=== PATIENT | female | born 1930 | race Caucasian/White ===

== ENCOUNTER 2016-07-04 12:49 | Observation (INO) | payer MEDICARE ==
[~2016-07-04] VITALS: Ht 157.5 cm; Wt 64.2 kg
[~2016-07-04 12:49] MED LIST: ASPI-110 PO; CALCTAB32 PO; DIGO0.12 PO; DONE10TA7 PO; DORZ2SOL EACH EYE; FERR325T PO; FLEC1TAB8 PO; LATA.005%O EACH EYE; METO50TA PO; MIRT45TA PO; MULT-135 PO; OMEGCAP29 PO; VITA10002 PO; WARF-21 PO
[2016-07-04 13:03] VITALS: BP 111/56; PULSE 66; RESP 18; TEMP 98.8; O2SAT 100
--- NOTE | 2016-07-04 15:17 | PD ---
HPI Chief Complaint: Respiratory Symptoms Time Seen by Provider: 15:17 Travel History International Travel<30 days: No Contact w/Intl Traveler<30days: No Traveled to known affect area: No History of Present Illness HPI 85-year-old female with history of dementia who lives in an assisted living facility is here with her daughter because he was saying that she was having some breathing difficulty today. Patient has been coughing. She has not been much verbal here although she is awake. Her daughter is giving all the history. Her vital signs in triage were within acceptable limits. No history of fever or chills. She has been complaining of mid back pain since she has been in. This has been going on since today. Patient has a pacemaker and history of atrial fibrillation. [facility] Past Medical History Narrative Medical List of her past medical, surgical, social and family history was reviewed from the nursing note. Anemia: Yes Atrial Fibrillation: Yes Heart Rhythm Problems: Yes (A-FIB) Cancer: No Cardiovascular Problems: Yes (PACER) High Cholesterol: No Chest Pain: No Congestive Heart Failure: No Dementia: Yes Diabetes: No Endocrine: No Genitourinary: No Hypertension: Yes Immune Disorder: No Musculoskeletal: No Neurologic: No Psychiatric: No Reproductive: No Respiratory: No Thyroid Disease: No ?: Not Past Surgical History Pacemaker: Yes Other Surgery: Yes (Appendix,hysterectomy) Social History Alcohol Use: No Tobacco Use: No Substance Use: No Allergies-Medications (Allergen,Severity, Reaction): Coded Allergies: Nitrofurantoin (Verified Allergy, Severe, 05/03/16) Penicillin (Verified Allergy, Mild, Hives, 05/03/16) Sulfa (Verified Allergy, Unknown, 05/03/16) Comments List of her allergies reviewed from the nursing note. Reported Meds & Prescriptions Reported Meds & Active Scripts Active Mirtazapine 45 Mg Tab 45 Mg PO HS Digoxin 0.125 Mg Tab 0.125 Mg PO DAILY Ferrous Sulfate 325 Mg Tab 325 Mg PO BID Reported Calcium Citrate-Vitamin D 315-250 Mg-Unit Tab 2 Tab PO BID Warfarin 2.5 Mg Tab 2.5 Mg PO DIRECTED Vitamin B-12 (Cyanocobalamin) 1,000 Mcg Tab 1,000 Mcg PO DAILY [facility] ([place] 3 Fatty Auedw-Bwupyy-Cynfszqtvj) 250-2.5-0.5 Mg Cap 1 Cap PO DAILY Dorzolamide Opth Drops (Dorzolamide HCl) 2% Soln 1 Drop EACH EYE BID Multi Vitamin (Multiple Vitamin) 1 Tab Tab 1 Tab PO DAILY Aspirin 81 (Aspirin) 81 Mg Tabdr 81 Mg PO DAILY Xalatan Opth Drops (Latanoprost) 0.005% Drops 1 Drop EACH EYE HS Metoprolol Tartrate 50 Mg Tab 50 Mg PO DAILY Donepezil 10 Mg Tab 10 Mg PO HS Flecainide (Flecainide Acetate) 50 Mg Tab 50 Mg PO BID Warfarin 7.5 Mg Tab 7.5 Mg PO DIRECTED EVERY DAY EXCEPT TUES Narrative Medication List of her home medications reviewed from the nursing note. Review of Systems Except as stated in HPI: all other systems reviewed are Neg Physical Exam Narrative GENERAL: Awake, alert, elderly, anxious SKIN: Warm and dry. HEAD: Atraumatic. Normocephalic. EYES: Pupils equal and round. No scleral icterus. No injection or drainage. ENT: No nasal bleeding or discharge. Mucous membranes pink and moist. NECK: Trachea midline. No JVD. CARDIOVASCULAR: Regular rate and rhythm. No murmur appreciated. RESPIRATORY: No accessory muscle use. Clear to auscultation. Breath sounds equal bilaterally. GASTROINTESTINAL: Abdomen soft, non-tender, nondistended. Hepatic and splenic margins not palpable. MUSCULOSKELETAL: No obvious deformities. No clubbing. No cyanosis. No edema. NEUROLOGICAL: Awake and alert. No obvious cranial nerve deficits. Motor grossly within normal limits. Normal speech. PSYCHIATRIC: Appropriate mood and affect; insight and judgment normal. Data Data Last Documented VS Vital Signs Date Time Temp Pulse Resp B/P Pulse Ox O2 Delivery O2 Flow Rate FiO2 07/04/16 15:40 98 Room Air 07/04/16 15:40 98.5 59 32 148/76 Orders Complete Blood Count With Diff (07/04/16 15:21) Basic Metabolic Panel (Bmp) (07/04/16 15:21) B-Type Natriuretic Peptide (07/04/16 15:21) Prothrombin Time / Inr (Pt) (07/04/16 15:21) Troponin I (07/04/16 15:21) Blood Culture (07/04/16 15:21) Iv Access Insert/Monitor (07/04/16 15:21) Electrocardiogram (07/04/16 15:21) Ecg Monitoring (07/04/16 15:21) Oximetry (07/04/16 15:21) Oxygen Administration (07/04/16 15:21) Chest, Single Ap (07/04/16 15:21) Sodium Chloride 0.9% Flush (Ns Flush) (07/04/16 15:30) Digoxin (07/04/16 15:21) Admit Order (Ed Use Only) (07/04/16 17:00) Labs Laboratory Tests Test 07/04/16 15:45 White Blood Count 8.9 TH/MM3 Red Blood Count 2.99 MIL/MM3 Hemoglobin 8.4 GM/DL Hematocrit 25.9 % Mean Corpuscular Volume 86.7 FL Mean Corpuscular Hemoglobin 28.2 PG Mean Corpuscular Hemoglobin 32.5 % Concent Red Cell Distribution Width 14.4 % Platelet Count 257 TH/MM3 Mean Platelet Volume 9.8 FL Neutrophils (%) (Auto) 77.2 % Lymphocytes (%) (Auto) 9.5 % Monocytes (%) (Auto) 8.2 % Eosinophils (%) (Auto) 1.6 % Basophils (%) (Auto) 3.5 % Neutrophils # (Auto) 7.0 TH/MM3 Lymphocytes # (Auto) 0.8 TH/MM3 Monocytes # (Auto) 0.7 TH/MM3 Eosinophils # (Auto) 0.1 TH/MM3 Basophils # (Auto) 0.3 TH/MM3 CBC Comment DIFF FINAL Differential Comment Prothrombin Time 20.9 SEC Prothromb Time International 1.8 RATIO Ratio Sodium Level 141 MEQ/L Potassium Level 4.6 MEQ/L Chloride Level 106 MEQ/L Carbon Dioxide Level 25.9 MEQ/L Anion Gap 9 MEQ/L Blood Urea Nitrogen 17 MG/DL Creatinine 0.90 MG/DL Estimat Glomerular Filtration 60 ML/MIN Rate Random Glucose 108 MG/DL Calcium Level 9.1 MG/DL Troponin I LESS THAN 0.02 NG/ML B-Type Natriuretic Peptide 250 PG/ML Digoxin Level 0.8 NG/ML MDM Medical Decision Making Medical Screen Exam Complete: Yes Emergency Medical Condition: Yes Medical Record Reviewed: Yes Interpretation(s) Twelve-lead EKG was reviewed by me. Normal sinus rhythm, atrial paced, normal axis, nonspecific ST-T wave changes. Heart rate of 59 bpm. Differential Diagnosis Pneumonia, CHF Narrative Course 3:48 PM awaiting for the blood test results to come back. Patient will be signed over to the oncoming ER physician. Procedures EKG Prior to Arrival: Linda Jara MD Jul 04, 2016 15:17
[2016-07-04] MEDS ORDERED: SODIUM CHLORIDE 0.9% FLUSH 5 ML FLUSH IVF PRN (15:30)
[2016-07-04 15:40] VITALS: BP 148/76; PULSE 59; RESP 32; TEMP 98.5; O2SAT 98
[2016-07-04 16:03] LABS: BASOPHIL # 0.3 TH/MM3 (0-0.2); BASOPHIL % 3.5 % (0.0-2.0); EOSINOPHIL # 0.1 TH/MM3 (0-0.4); EOSINOPHIL % 1.6 % (0.0-4.0); HEMATOCRIT 25.9 % (35.0-46.0); HEMO FLAGS DIFF FINAL; LYMPH % 9.5 % (9.0-44.0); LYMPHOCYTE # 0.8 TH/MM3 (1.0-4.8); MEAN CELL VOLUME 86.7 FL (80.0-100.0); MEAN CORPUSCULAR HEMOGLOBIN 28.2 PG (27.0-34.0); MEAN CORPUSCULAR HGB CONC 32.5 % (32.0-36.0); MONO % 8.2 % (0.0-8.0); NEUT % 77.2 % (16.0-70.0); PLATELET COUNT 257 TH/MM3 (150-450); RED BLOOD COUNT 2.99 MIL/MM3 (4.00-5.30); RED CELL DISTRIBUTION WIDTH 14.4 % (11.6-17.2); WHITE BLOOD COUNT 8.9 TH/MM3 (4.0-11.0)
--- NOTE | 2016-07-04 16:15 | RADHPO ---
EXAM DATE/TIME: 07/04/2016 16:10 [facility] COMPARISON: CHEST SINGLE AP, June 16, 2013, 7:42. INDICATIONS : Short of breath. MEDICAL HISTORY : None. SURGICAL HISTORY : Pacemaker. ENCOUNTER: Initial ACUITY: 1 day PAIN SCORE: 0/10 LOCATION: Bilateral chest FINDINGS: A single view of the chest demonstrates the lungs to be symmetrically aerated without evidence of mas s, infiltrate or effusion. Cardiomegaly. Left-sided pacemaker unchanged.. Osseous structures are int act. CONCLUSION: No acute disease. Joel Hurtado MD on July 04, 2016 at 16:14 Board Certified Radiologist. This report was verified electronically.
[2016-07-04 16:17] LABS: CHLORIDE 106 MEQ/L (98-107); POTASSIUM 4.6 MEQ/L (3.5-5.1); SODIUM (NA) 141 MEQ/L (136-145)
[2016-07-04] MEDS ORDERED: WARF-18 PO (16:18)
[2016-07-04] MEDS ORDERED: CALCTAB PO (16:18)
[2016-07-04 16:19] LABS: INTERNATIONAL NORMALIZED RATIO 1.8 RATIO; PROTHROMBIN TIME - PATIENT 20.9 SEC (9.8-11.6)
[2016-07-04 16:21] LABS: ANION GAP 9 MEQ/L (5-15); BICARBONATE 25.9 MEQ/L (21.0-32.0); BLOOD UREA NITROGEN 17 MG/DL (7-18)
[2016-07-04 16:24] LABS: GLOMERULAR FILTRATION RATE 60 ML/MIN (>89)
[2016-07-04 16:39] LABS: DIGOXIN 0.8 NG/ML (0.8-2.0)
--- NOTE | 2016-07-04 17:00 | PD ---
Data Data Last Documented VS Vital Signs Date Time Temp Pulse Resp B/P Pulse Ox O2 Delivery O2 Flow Rate FiO2 07/04/16 15:40 98 Room Air 07/04/16 15:40 98.5 59 32 148/76 Orders Complete Blood Count With Diff (07/04/16 15:21) Basic Metabolic Panel (Bmp) (07/04/16 15:21) B-Type Natriuretic Peptide (07/04/16 15:21) Prothrombin Time / Inr (Pt) (07/04/16:) Troponin I (07/04/16:) Blood Culture (07/04/16:) Iv Access Insert/Monitor (07/04/16:) Electrocardiogram (07/04/16:) Ecg Monitoring (07/04/16:) Oximetry (07/04/16:) Oxygen Administration (07/04/16:) Chest, Single Ap (07/04/16 15:) Sodium Chloride 0.9% Flush (Ns Flush) (07/04/16 15:30) Digoxin (07/04/16 15:) Labs Laboratory Tests Test 07/04/16 15:45 White Blood Count 8.9 TH/MM3 Red Blood Count 2.99 MIL/MM3 Hemoglobin 8.4 GM/DL Hematocrit 25.9 % Mean Corpuscular Volume 86.7 FL Mean Corpuscular Hemoglobin 28.2 PG Mean Corpuscular Hemoglobin 32.5 % Concent Red Cell Distribution Width 14.4 % Platelet Count 257 TH/MM3 Mean Platelet Volume 9.8 FL Neutrophils (%) (Auto) 77.2 % Lymphocytes (%) (Auto) 9.5 % Monocytes (%) (Auto) 8.2 % Eosinophils (%) (Auto) 1.6 % Basophils (%) (Auto) 3.5 % Neutrophils # (Auto) 7.0 TH/MM3 Lymphocytes # (Auto) 0.8 TH/MM3 Monocytes # (Auto) 0.7 TH/MM3 Eosinophils # (Auto) 0.1 TH/MM3 Basophils # (Auto) 0.3 TH/MM3 CBC Comment DIFF FINAL Differential Comment Prothrombin Time 20.9 SEC Prothromb Time International 1.8 RATIO Ratio Sodium Level 141 MEQ/L Potassium Level 4.6 MEQ/L Chloride Level 106 MEQ/L Carbon Dioxide Level 25.9 MEQ/L Anion Gap 9 MEQ/L Blood Urea Nitrogen 17 MG/DL Creatinine 0.90 MG/DL Estimat Glomerular Filtration 60 ML/MIN Rate Random Glucose 108 MG/DL Calcium Level 9.1 MG/DL Troponin I LESS THAN 0.02 NG/ML B-Type Natriuretic Peptide 250 PG/ML Digoxin Level 0.8 NG/ML MDM Supervised Visit with SANTOSH: No Narrative Course The patient was initially evaluated by the previous provider and signed out to me at the beginning of my shift pending labs, chest x-ray, and disposition. See her note for further details. Briefly this is an 85-year-old female with history of A. fib on Coumadin who is brought in by her daughter from her alf for evaluation of cough and shortness of breath. On physical exam the patient is coughing. Her lung sounds are clear and equal bilaterally. She is resting comfortably. Vital signs show heart rate 59, blood pressure 148/76, pulse ox 98% on room air , oral temp of 98.5F. CBC shows WBC 8.9, hemoglobin 8.4, hematocrit 25.9, platelets 257, neutrophils 77%. CMP is unremarkable. Cardiac enzymes are negative. BNP is 250. Digoxin level is 0.8. INR is 1.8. Chest x-ray: No acute disease. Chart review shows that the patient was last here in 2013 and had a hemoglobin of 10.1. Today it is 8.4. Her stool is heme positive and brown. Given anemia with INR 1.8 and shortness of breath, the patient will be admitted for overnight observation for serial H&H. Case discussed with hospitalist Dr. Pérez who will admit the patient to his service. Diagnosis Primary Impression: Anemia Qualified Code: D64.9 - Anemia, unspecified type Additional Impressions: Heme positive stool Shortness of breath Admitting Information Admitting Physician Requests: Ricky Cotton MD Jul 04, 2016 17:00
[2016-07-04] MEDS ORDERED: RESP: ALBUTEROL 2.5 MG/IPRATROPIUM 0.5 MG NEB (PRN) NEB (17:45)
[2016-07-04] MEDS ORDERED: SODIUM CHLORIDE 0.9% FLUSH 5 ML FLUSH FLUSH PRN (17:45)
[2016-07-04] MEDS ORDERED: ONDANSETRON HCL 4 MG/2 ML VIAL IVP PRN (17:45)
[2016-07-04] MEDS ORDERED: NALOXONE HCL 0.4 MG/ML AMP IV PRN (17:45)
[2016-07-04] MEDS ORDERED: ACETAMINOPHEN 325 MG TAB PO PRN ×2 (17:45)
[2016-07-04] MEDS ORDERED: PILL SPLITTER OTHER PRN (17:45)
[2016-07-04 19:47] VITALS: O2SAT 98
[2016-07-04 20:36] VITALS: BP 153/63; PULSE 119; RESP 18; O2SAT 96
[2016-07-04] MEDS ORDERED: LATANOPROST 0.005% OPHT SOLN 2.5 ML BTL EACH EYE SCH (21:00)
[2016-07-04] MEDS ORDERED: DONEPEZIL HCL 5 MG TAB PO SCH (21:00)
[2016-07-04] MEDS ORDERED: FLECAINIDE ACETATE 100 MG TAB PO SCH (21:00)
[2016-07-04] MEDS ORDERED: DORZOLAMIDE 2% OPTH SOLN 200 DROP/10 ML BTLO EACH EYE SCH (21:00)
[2016-07-04] MEDS ORDERED: MIRTAZAPINE 15 MG TAB PO SCH (21:00)
[2016-07-04 21:56] VITALS: BP 142/69; PULSE 60; RESP 18; TEMP 99.4; O2SAT 99
[2016-07-05] VITALS: BP 154/72; PULSE 60; RESP 18; TEMP 98.9; O2SAT 100
[2016-07-05 00:30] VITALS: PULSE 67
[2016-07-05] MEDS: FERROUS SULFATE 325 MG (65 MG ELEMENTAL IRON) TAB PO SCH ×2 (00:42→08:16)
[2016-07-05] MEDS: SODIUM CHLORIDE 0.9% FLUSH 5 ML FLUSH FLUSH SCH ×2 (02:45→08:17)
[2016-07-05 06:35] LABS: AUTOMATED NEUTROPHIL # 5.7 TH/MM3 (1.8-7.7); BASOPHIL % 0.2 % (0.0-2.0); EOSINOPHIL # 0.2 TH/MM3 (0-0.4); EOSINOPHIL % 2.4 % (0.0-4.0); HEMATOCRIT 24.2 % (35.0-46.0); LYMPH % 11.4 % (9.0-44.0); LYMPHOCYTE # 0.9 TH/MM3 (1.0-4.8); MEAN CELL VOLUME 86.4 FL (80.0-100.0); MEAN CORPUSCULAR HEMOGLOBIN 28.7 PG (27.0-34.0); MEAN CORPUSCULAR HGB CONC 33.2 % (32.0-36.0); MONO % 10.7 % (0.0-8.0); NEUT % 75.3 % (16.0-70.0); PLATELET COUNT 187 TH/MM3 (150-450); RED CELL DISTRIBUTION WIDTH 13.8 % (11.6-17.2); WHITE BLOOD COUNT 7.6 TH/MM3 (4.0-11.0)
[2016-07-05 06:47] LABS: HEMO FLAGS DIFF FINAL
[2016-07-05] MEDS ORDERED: DIGOXIN 0.125 MG TAB PO SCH (09:00)
[2016-07-05] MEDS ORDERED: MULTIVITAMIN TAB PO SCH (09:00)
[2016-07-05] MEDS ORDERED: METOPROLOL TARTRATE 50 MG TAB PO SCH (09:00)
[2016-07-05 09:22] VITALS: BP 154/80; PULSE 69; RESP 14; TEMP 98.5; O2SAT 98
--- NOTE | 2016-07-05 10:26 | HHI.HP ---
[facility] Service [facility] Primary Care Physician Vladimir Hawk MD Admission Diagnosis anemia, heme positive stool, dyspnea Diagnoses: (1) Cough Diagnosis: Principal (2) Heme positive stool Diagnosis: Principal (3) Anemia Diagnosis: Secondary (4) Atrial fibrillation, rapid Diagnosis: Secondary (5) Dementia Diagnosis: Secondary Chief Complaint: Cough Travel History International Travel<30 Days: No Contact w/Intl Traveler <30 Da: No Traveled to Known Affected Are: No History of Present Illness 85-year-old quite pleasant demented female who presented from local [facility] and the presence of her daughter to the emergency department for generalized symptoms of not feeling well, cough, difficulty breathing the night before. Upon evaluating the patient this morning the patient does appear to have significant dementia, she does know her name and date of , however unable to give any other orientation questions. She believes that she is in [place]. Information was taken from medical records, discussion with daughter, discussion with primary medical doctor's office. Apparently the patient presented with cough and shortness of breath which has resolved at this time. Patient had blood work done emergency department found to have a hemoglobin of 8.4 and stool was heme positive. Because of those reasons ER physician recommended patient be observed overnight. Upon further review of medical records and discussion with primary medical doctor's office. Patient's hemoglobin is typically 7.39.1. Last hemoglobin was 8.6 on 11/22/15. Follow-up laboratory studies this morning hemoglobin was 8.1 which has remained stable. Patient is also on ferrous sulfate for iron replacement which can cause false positive with testing. Patient appears clinically stable and asymptomatic. Discussed with primary medical doctor office and daughter, results and treatment plan. Patient will follow-up with primary medical doctor's office by the end of the week. Review of Systems ROS Limitations: Poor Historian Past Family Social History Past Medical History Unable to obtain information from patient, information taken from medical records Hypertension Chronic atrial fibrillation Impaired fasting glucose Dementia History of pancreatitis Chronic anemia Cognitive impairment Past Surgical History Unable to obtain information with the patient, information taken from medical records. Permanent pacemaker Appendectomy Hysterectomy Reported Medications Reported Meds & Active Scripts Active Mirtazapine 45 Mg Tab 45 Mg PO HS Digoxin 0.125 Mg Tab 0.125 Mg PO DAILY Ferrous Sulfate 325 Mg Tab 325 Mg PO BID Reported Calcium Citrate-Vitamin D 315-250 Mg-Unit Tab 2 Tab PO BID Warfarin 2.5 Mg Tab 2.5 Mg PO DIRECTED Vitamin B-12 (Cyanocobalamin) 1,000 Mcg Tab 1,000 Mcg PO DAILY [facility] ([place] 3 Fatty Jnlnm-Yoqjlb-Hmpeaxsiny) 250-2.5-0.5 Mg Cap 1 Cap PO DAILY Dorzolamide Opth Drops (Dorzolamide HCl) 2% Soln 1 Drop EACH EYE BID Multi Vitamin (Multiple Vitamin) 1 Tab Tab 1 Tab PO DAILY Aspirin 81 (Aspirin) 81 Mg Tabdr 81 Mg PO DAILY Xalatan Opth Drops (Latanoprost) 0.005% Drops 1 Drop EACH EYE HS Metoprolol Tartrate 50 Mg Tab 50 Mg PO DAILY Donepezil 10 Mg Tab 10 Mg PO HS Flecainide (Flecainide Acetate) 50 Mg Tab 50 Mg PO BID Warfarin 7.5 Mg Tab 7.5 Mg PO DIRECTED EVERY DAY EXCEPT TUES Allergies: Coded Allergies: Nitrofurantoin (Verified Allergy, Severe, 05/03/16) Penicillin (Verified Allergy, Mild, Hives, 05/03/16) Sulfa (Verified Allergy, Unknown, 05/03/16) Family History Unable to obtain information from the patient, information taken from medical records Records reviewed and significant for father with lung cancer, mother with memory loss Social History Unable to obtain information from the patient, information taken from medical records Records indicate that patient does not use any tobacco, alcohol or illicit drugs at this time. Physical Exam Vital Signs Vital Signs Date Time Temp Pulse Resp B/P Pulse Ox O2 Delivery O2 Flow Rate FiO2 07/05/16 09:22 98.5 69 14 154/80 98 07/05/16 00:30 67 07/05/16 00:00 98.9 60 18 154/72 100 07/04/16 21:56 99.4 60 18 142/69 99 07/04/16 20:36 119 18 153/63 96 Room Air 07/04/16 19:47 98 07/04/16 17:43 16 07/04/16 15:40 98 Room Air 07/04/16 15:40 98 Room Air 07/04/16 15:40 98.5 59 32 148/76 98 Room Air 07/04/16 13:03 98.8 66 18 111/56 100 Room Air Physical Exam GENERAL: Well-developed, well-nourished, in no acute distress. alert and orientated to person only HEENT: Head is normocephalic without any lesions or masses noted. Facial features are symmetric. Eyes: Pupils equal round reactive to light. Extraocular muscles are intact. Conjunctivae were clear. Oropharyngeal: Pharynx without any erythema edema. Tongue is midline without deviation. Buccal mucosa is moist without any masses or lesions NECK: Supple without any masses. Trachea midline no deviation. No JVD, no bruits are appreciated CARDIAC: Irregular rhythm, irregular rate. S1/S2 are heard. 2/6 ejection murmur , no gallops or rubs. LUNGS: Clear to auscultation bilaterally. No wheeze, rhonchi or rales. No use of accessory muscles on inspiration or expiration. ABDOMEN: Soft, nontender. Nondistended. Bowel sounds heard in all 4 quadrants. No organomegaly or masses. Negative rebound, negative guarding EXTREMITIES: No edema, pulses are equal bilaterally. No cyanosis or clubbing NEUROLOGY: Mood and affect appear appropriate. Cranial nerves II through XII grossly intact. Muscle strength 5/5 in upper and lower extremities bilaterally. Deep tendon reflexes are 2+ in upper and lower extremities bilaterally. Laboratory Laboratory Tests Test 07/04/16 07/05/16 15:45 05:39 White Blood Count 8.9 7.6 Red Blood Count 2.99 2.80 Hemoglobin 8.4 8.1 Hematocrit 25.9 24.2 Mean Corpuscular Volume 86.7 86.4 Mean Corpuscular Hemoglobin 28.2 28.7 Mean Corpuscular Hemoglobin 32.5 33.2 Concent Red Cell Distribution Width 14.4 13.8 Platelet Count 257 187 Mean Platelet Volume 9.8 9.4 Neutrophils (%) (Auto) 77.2 75.3 Lymphocytes (%) (Auto) 9.5 11.4 Monocytes (%) (Auto) 8.2 10.7 Eosinophils (%) (Auto) 1.6 2.4 Basophils (%) (Auto) 3.5 0.2 Neutrophils # (Auto) 7.0 5.7 Lymphocytes # (Auto) 0.8 0.9 Monocytes # (Auto) 0.7 0.8 Eosinophils # (Auto) 0.1 0.2 Basophils # (Auto) 0.3 0.0 CBC Comment DIFF FINAL DIFF FINAL Differential Comment Prothrombin Time 20.9 Prothromb Time International 1.8 Ratio Sodium Level 141 Potassium Level 4.6 Chloride Level 106 Carbon Dioxide Level 25.9 Anion Gap 9 Blood Urea Nitrogen 17 Creatinine 0.90 Estimat Glomerular Filtration 60 Rate Random Glucose 108 Calcium Level 9.1 Troponin I LESS THAN 0.02 B-Type Natriuretic Peptide 250 Digoxin Level 0.8 Date/Time Procedure Status Source Growth 07/04/16 15:42 Aerobic Blood Culture Received Blood Peripheral Pending 07/04/16 15:42 Anaerobic Blood Culture Received Blood Peripheral Pending Result Diagram: 07/05/16 0539 07/04/16 1545 Imaging Last Impressions Chest X-Ray 07/04/16 1521 Signed Impressions: Service Date/Time: Monday, July 04, 2016 16:10 - CONCLUSION: No acute disease. Joel Hurtado MD Assessment and Plan Assessment and Plan Heme positive stool in a patient with chronic anemia presenting with cough/ shortness of breath: Did review medical records and called patient's primary medical doctor's office. Patient does have laboratory studies performed in which was the most recent indicating patient's hemoglobin 8.6 at that time. Patient had labs performed in emergency department hemoglobin is 8.4. Hemoccult was performed which was positive, however, patient is also on iron supplementation which could cause a false positive result. At the present time hemoglobin is stable in a patient with chronic anemia. No obvious signs of active bleeding. I discussed the patient's medical condition with her primary medical doctor's office who indicated that they'll be happy to see the patient within the next 3 days for follow-up. Chronic atrial fibrillation with permanent pacemaker, hypertension: Home medications will be continued, continue anticoagulation. Dementia: Home medications continued DVT prevention: Patient is on Coumadin Written by Charli Montenegro PA-C, acting as scribe for Dr. Pérez on 07/05/16 at 1010. The documentation accurately reflects the work and decisions performed face-to- face by Dr. Pérez on 07/05/16 at 1010. Discharge disposition Discharge back to [facility] in stable condition Activity: Ad chandan. Diet: Healthy heart diet Medications per medication reconciliation Follow-up primary medical doctor within the next 3 days Problem Qualifiers (1) Anemia: Qualified Code: D64.9 - Anemia, unspecified type (2) Dementia: Qualified Code: F03.90 - Dementia without behavioral disturbance, unspecified dementia type Charli Montenegro Jul 05, 2016 10:26
--- NOTE | 2016-07-05 10:28 | HHI.DCPOC ---
Discharge Care Plan Diagnosis: (1) Heme positive stool Goals to Promote Your Health * To prevent worsening of your condition and complications * To maintain your health at the optimal level Directions to Meet Your Goals Take your medications as prescribed Follow your dietary instruction Follow activity as directed Keep your appointments as scheduled Take your immunizations and boosters as scheduled If your symptoms worsen call your PCP, if no PCP go to Urgent Care Center or Emergency Room Smoking is Dangerous to Your Health. Avoid second hand smoke Call the 24-hour hour crisis hotline for domestic abuse at Charli Montenegro Jul 05, 2016 10:28
--- NOTE | 2016-07-05 20:17 | EKG ---
Date Performed: 07/04/2016 Time Performed: 15:36:40 PTAGE: 85 years EKG: Atrial pacing Poor R wave progression - probable normal variant Extensive T wave changes ar e nonspecific Abnormal ECG PREVIOUS TRACING : 06/16/2013 07.47 Compared to prior tracing no significant change DOCTOR: Felicitas David Interpretating Date/Time 07/05/2016 20:14:48
[2016-07-14] MEDS ORDERED: FERR325T PO (11:37)
[2016-07-14] MEDS ORDERED: WARF-21 PO (12:05)
[2016-07-21] MEDS ORDERED: WARF-22 PO (13:33)
[2016-07-21] MEDS ORDERED: WARF-21 PO (13:33)
[2016-08-28] MEDS ORDERED: FLEC1TAB8 PO (14:28)
[2016-09-15] MEDS ORDERED: WARF-21 PO (10:50)
[2016-09-22] MEDS ORDERED: FERR324T4 PO (11:44)
[2016-09-22] MEDS ORDERED: MULT-65 PO (11:44)
[2016-09-22] MEDS ORDERED: WARF-21 PO (13:10)
[2016-09-25] MEDS ORDERED: LORA-373 PO (09:22)
[2016-09-29] MEDS ORDERED: FLEC1TAB8 PO (13:28)
[2016-10-02] MEDS ORDERED: METO50TA PO (14:31)
== END 2016-07-05 11:06 ==
LOC: PHED 12:49 → PHEDA 17:01 → PH3B 21:56
PROVIDERS: ADMIT Hospitalist; ATTEND Hospitalist
DX: R19.5 Other fecal abnormalities (principal); D64.9 Anemia, unspecified; R05 Cough; F03.90 Unspecified dementia, unspecified severity, without behavioral disturbance, psychotic disturbance, mood disturbance, and anxiety; I10 Essential (primary) hypertension; I48.2 Chronic atrial fibrillation; Z95.0 Presence of cardiac pacemaker; Z79.01 Long term (current) use of anticoagulants; Z79.82 Long term (current) use of aspirin; Z88.0 Allergy status to penicillin; Z88.2 Allergy status to sulfonamides; Z88.8 Allergy status to other drugs, medicaments and biological substances
CPT/HCPCS: 71010; 80048; 80162; 83880; 84484; 85025; 85610; 87040; 93005; 99285; G0378

== ENCOUNTER 2016-11-20 15:40 | Emergency (ER) | payer MEDICARE ==
[~2016-11-20] VITALS: Ht 157.5 cm; Wt 59.9 kg
[~2016-11-20 15:40] MED LIST changes: +CALCTAB PO; -CALCTAB32 PO; +FERR324T4 PO; -FERR325T PO; -FLEC1TAB8 PO; -MIRT45TA PO; -MULT-135 PO; +MULT-65 PO; +TRAZ50TA12 PO
[2016-11-20 15:43] VITALS: BP 135/60; PULSE 76; RESP 16; TEMP 98; O2SAT 100
[2016-11-20 16:05] VITALS: O2SAT 98
[2016-11-20 16:10] LABS: BLOOD, URINE NEG (NEG); GLUCOSE,URINE NEG (NEG); KETONE, URINE NEG (NEG); NITRITE,URINE NEG (NEG)
[2016-11-20] MEDS ORDERED: SODIUM CHLORIDE 0.9% FLUSH 5 ML FLUSH IV FLUSH PRN (16:15)
--- NOTE | 2016-11-20 16:18 | PD ---
HPI Chief Complaint: Altered Mental Status Time Seen by Provider: 15:53 Travel History International Travel<30 days: No Contact w/Intl Traveler<30days: No Traveled to known affect area: No History of Present Illness HPI 86-year-old female arrives with daughter to the ER. She comes from an assisted living facility. For the past 4 days she has been agitated, attacking co- residents and refusing medications. She has been eating less. The daughters report that they encountered her this afternoon at 3 PM, about an hour before ER arrival. The patient at that time began crying. It seems as though the patient was hallucinating, seeing baby that was not there. At the time of ER evaluation the patient has no medical complaints and specifically denies chest pain shortness of breath nausea vomiting and fever. The daughters note that there was a change in medication on , the same day at the initiation of agitation, trazodone started Sunday however they're not sure which medication was stopped night. PFSH Past Medical History Anemia: Yes Atrial Fibrillation: Yes Heart Rhythm Problems: Yes (A-FIB) Cancer: No Cardiovascular Problems: Yes (PACER) High Cholesterol: No Chest Pain: No Congestive Heart Failure: Yes Dementia: Yes Diabetes: No Endocrine: No Genitourinary: No Hypertension: Yes Immune Disorder: No Musculoskeletal: No Neurologic: No Psychiatric: No Reproductive: No Respiratory: No Sickle Cell Disease: No Thyroid Disease: No Tetanus Vaccination: Unknown Influenza Vaccination: Yes ?: Not Past Surgical History AICD: No Appendectomy: Yes Arteriovenous Shunt: No Cardiac Surgery: Yes (PACEMAKER) Cholecystectomy: Yes Hysterectomy: Yes Insulin Pump: No Joint Replacement: No Pacemaker: Yes Other Surgery: Yes (Appendix,hysterectomy) Social History Alcohol Use: No Tobacco Use: No Substance Use: No Allergies-Medications (Allergen,Severity, Reaction): Coded Allergies: Nitrofurantoin (Verified Allergy, Severe, 11/20/16) Penicillin (Verified Allergy, Mild, Hives, 11/20/16) Sulfa (Verified Allergy, Unknown, 11/20/16) Reported Meds & Prescriptions Reported Meds & Active Scripts Active Cefuroxime (Cefuroxime Axetil) 500 Mg Tab 500 Mg PO BID 5 Days Warfarin 7.5 Mg Tab 7.5 Mg PO DAILY Trazodone (Trazodone HCl) 50 Mg Tab 50 Mg PO DIRECTED 25mg 2 hours before bedtime for 2 days, then 50mg 2 hours before bedtime thereafter Donepezil 10 Mg Tab 10 Mg PO HS Metoprolol Tartrate 50 Mg Tab 50 Mg PO DAILY Digoxin 0.125 Mg Tab 0.125 Mg PO DAILY Reported Ferrous Sulfate DR (Ferrous Sulfate) 324 Mg Tabdr 324 Mg PO DAILY Multi-Vitamin Daily (Multiple Vitamin) 1 Tab Tab 1 Tab PO DAILY Calcium Citrate-Vitamin D 315-250 Mg-Unit Tab 2 Tab PO BID Vitamin B-12 (Cyanocobalamin) 1,000 Mcg Tab 1,000 Mcg PO DAILY [facility] ([place] 3 Fatty Tiwbq-Blgtfy-Uotblrbtqd) 250-2.5-0.5 Mg Cap 1 Cap PO DAILY Dorzolamide Opth Drops (Dorzolamide HCl) 2% Soln 1 Drop EACH EYE BID Aspirin 81 (Aspirin) 81 Mg Tabdr 81 Mg PO DAILY Xalatan Opth Drops (Latanoprost) 0.005% Drops 1 Drop EACH EYE HS Review of Systems Except as stated in HPI: all other systems reviewed are Neg Physical Exam Narrative GENERAL: 86 yo F, WNWD, cooperative, answers questions appropriately SKIN: Warm and dry. HEAD: Atraumatic. Normocephalic. EYES: Pupils equal and round. No scleral icterus. No injection or drainage. ENT: No nasal bleeding or discharge. Mucous membranes pink and moist. NECK: Trachea midline. No JVD. CARDIOVASCULAR: Regular rate and rhythm. RESPIRATORY: No accessory muscle use. Clear to auscultation. Breath sounds equal bilaterally. GASTROINTESTINAL: Soft. No focus of tenderness. MUSCULOSKELETAL: Extremities without clubbing, cyanosis, or edema. No obvious deformities. NEUROLOGICAL: Awake and alert. No obvious cranial nerve deficits. Motor grossly within normal limits. Five out of 5 muscle strength in the arms and legs. Normal speech. PSYCHIATRIC: Appropriate mood and affect; insight and judgment normal. Data Data Last Documented VS Vital Signs Date Time Temp Pulse Resp B/P Pulse Ox O2 Delivery O2 Flow Rate FiO2 11/20/16 16:05 98 Room Air 11/20/16 15:43 98.0 76 16 135/60 VS reviewed Orders Electrocardiogram (11/20/16 16:02) Ammonia (11/20/16 16:02) Complete Blood Count With Diff (11/20/16 16:02) Comprehensive Metabolic Panel (11/20/16 16:02) Urinalysis - C+S If Indicated (11/20/16 16:02) Ct Brain W/O Iv Contrast(Rout) (11/20/16 16:02) Ecg Monitoring (11/20/16 16:02) Iv Access Insert/Monitor (11/20/16 16:02) Oximetry (11/20/16 16:02) Sodium Chloride 0.9% Flush (Ns Flush) (11/20/16 16:15) Drug Screen, Random Urine (11/20/16 16:02) Alcohol (Ethanol) (11/20/16 16:02) Urine Culture (11/20/16 16:00) Ceftriaxone Inj (Rocephin Inj) (11/20/16 16:45) Labs Laboratory Tests Test 11/20/16 11/20/16 16:00 16:15 Urine Color YELLOW Urine Turbidity SLIGHT Urine pH 6.0 Urine Specific Meherrin 1.020 Urine Protein NEG mg/dL Urine Glucose (UA) NEG mg/dL Urine Ketones NEG mg/dL Urine Occult Blood NEG Urine Nitrite NEG Urine Bilirubin NEG Urine Leukocyte Esterase SMALL Urine RBC 0-3 /hpf Urine WBC INNUM /hpf Urine WBC Clumps MOD Urine Squamous Epithelial 0-5 /hpf Cells Urine Amorphous Sediment FEW Urine Bacteria MOD /hpf Microscopic Urinalysis Comment CATH-CULTURE IND White Blood Count 3.5 TH/MM3 Red Blood Count 3.74 MIL/MM3 Hemoglobin 10.3 GM/DL Hematocrit 32.0 % Mean Corpuscular Volume 85.5 FL Mean Corpuscular Hemoglobin 27.5 PG Mean Corpuscular Hemoglobin 32.2 % Concent Red Cell Distribution Width 14.0 % Platelet Count 158 TH/MM3 Mean Platelet Volume 9.3 FL Neutrophils (%) (Auto) 66.5 % Lymphocytes (%) (Auto) 18.1 % Monocytes (%) (Auto) 11.2 % Eosinophils (%) (Auto) 3.5 % Basophils (%) (Auto) 0.7 % Neutrophils # (Auto) 2.4 TH/MM3 Lymphocytes # (Auto) 0.6 TH/MM3 Monocytes # (Auto) 0.4 TH/MM3 Eosinophils # (Auto) 0.1 TH/MM3 Basophils # (Auto) 0.0 TH/MM3 CBC Comment DIFF FINAL Differential Comment Sodium Level 141 MEQ/L Potassium Level 4.0 MEQ/L Chloride Level 107 MEQ/L Carbon Dioxide Level 25.8 MEQ/L Anion Gap 8 MEQ/L Blood Urea Nitrogen 13 MG/DL Creatinine 0.99 MG/DL Estimat Glomerular Filtration 53 ML/MIN Rate Random Glucose 123 MG/DL Calcium Level 9.0 MG/DL Total Bilirubin 0.2 MG/DL Aspartate Amino Transf 45 U/L (AST/SGOT) Alanine Aminotransferase 21 U/L (ALT/SGPT) Alkaline Phosphatase 54 U/L Ammonia 16 MCMOL/L Total Protein 7.2 GM/DL Albumin 3.3 GM/DL Ethyl Alcohol Level LESS THAN 3 MG/DL MDM Medical Decision Making Medical Screen Exam Complete: Yes Emergency Medical Condition: Yes Medical Record Reviewed: Yes Differential Diagnosis AMS 2/2 dementia or progression of dementia/infection/polypharmacy/metabolic abnormality/dehydration Narrative Course CBC & BMP Diagram 11/20/16 16:15 LFTs normal Ammonia 16 UA: UTI present EtOH < 3 CT head: No acute disease Pt has a UTI, a very reasonable explanation for her agitation and change in mental status. Rocephin 1g here. Ceftin script. Diagnosis Primary Impression: UTI (urinary tract infection) Qualified Code: N30.00 - Acute cystitis without hematuria Additional Impression: Agitation Referrals: Vladimir Hawk MD 2 days Additional Instructions: You have a choice when it comes to health care, and we are glad that you chose [facility]. Hopefully, we have met your expectations on today's visit. You are welcome to return to [facility] at any time, as we are committed to meeting the health care needs of our community. Med/Other Pt SpecificInfo: Prescription(s) given Scripts Cefuroxime 500 Mg Lem039 Mg PO BID 5 Days Ref 0 Prov:Nestor Jacob MD 11/20/16 Disposition: DISCHARGE HOME Condition: Stable Nestor Jacob MD Nov 20, 2016 16:18
[2016-11-20 16:29] LABS: AUTOMATED NEUTROPHIL # 2.4 TH/MM3 (1.8-7.7); BASOPHIL % 0.7 % (0.0-2.0); EOSINOPHIL # 0.1 TH/MM3 (0-0.4); EOSINOPHIL % 3.5 % (0.0-4.0); HEMO FLAGS DIFF FINAL; LYMPH % 18.1 % (9.0-44.0); LYMPHOCYTE # 0.6 TH/MM3 (1.0-4.8); MEAN CELL VOLUME 85.5 FL (80.0-100.0); MEAN CORPUSCULAR HEMOGLOBIN 27.5 PG (27.0-34.0); MEAN CORPUSCULAR HGB CONC 32.2 % (32.0-36.0); MONO % 11.2 % (0.0-8.0); NEUT % 66.5 % (16.0-70.0); PLATELET COUNT 158 TH/MM3 (150-450); RED BLOOD COUNT 3.74 MIL/MM3 (4.00-5.30); WHITE BLOOD COUNT 3.5 TH/MM3 (4.0-11.0)
[2016-11-20 16:33] LABS: BACTERIA, URINE MOD /hpf; RBC, URINE 0-3 /hpf (0-3); SQUAMOUS EPITHELIAL CELL URINE 0-5 /hpf (0-5); URINE COLOR YELLOW (YELLW/STRAW); WBC, URINE INNUM /hpf (0-5)
[2016-11-20 16:34] LABS: COMMENT (UR) CATH-CULTURE IND; CULTURE IF INDICATED CATH CULTURE IND
[2016-11-20 16:38] LABS: CHLORIDE 107 MEQ/L (98-107); SODIUM (NA) 141 MEQ/L (136-145)
[2016-11-20] MEDS ORDERED: CEFU1TAB20 PO (16:41)
[2016-11-20 16:42] LABS: ANION GAP 8 MEQ/L (5-15); BICARBONATE 25.8 MEQ/L (21.0-32.0); BLOOD UREA NITROGEN 13 MG/DL (7-18)
[2016-11-20 16:45] LABS: ALT (GPT) 21 U/L (10-53); AST (GOT) 45 U/L (15-37); GLOMERULAR FILTRATION RATE 53 ML/MIN (>89)
[2016-11-20] MEDS ORDERED: cefTRIAXone INJ 1,000 MG in SODIUM CHLORIDE 0.9% INJ 100 ML IV ONE (16:45)
[2016-11-20 16:46] LABS: TOTAL BILIRUBIN ADULT 0.2 MG/DL (0.2-1.0)
[2016-11-20 16:48] LABS: ALKALINE PHOSPHATASE 54 U/L (45-117)
--- NOTE | 2016-11-20 16:51 | RADRPT ---
EXAM DATE/TIME: 11/20/2016 16:21 [place] COMPARISON: CT BRAIN W/O CONTRAST, December 06, 2013, 2:55. INDICATIONS : Altered mental status. RADIATION DOSE: 57.64 CTDIvol (mGy) MEDICAL HISTORY : Cardiovascular disease. Congestive heart failure. Hypertension. SURGICAL HISTORY : Pacemaker. ENCOUNTER: Initial ACUITY: 1 day PAIN SCALE: 0/10 LOCATION: cranial TECHNIQUE: Multiple contiguous axial images were obtained of the head. Using automated exposure control and adj ustment of the mA and/or kV according to patient size, radiation dose was kept as low as reasonably a chievable to obtain optimal diagnostic quality images. DICOM format image data is available electro nically for review and comparison. FINDINGS: There is no evidence for intracranial hemorrhage, mass effect, mass lesions, or edema. The visualize d bony structures appear intact. Slight degree of brain atrophy is seen. Slight periventricular whit e matter changes are seen nonspecific mostly consistent with chronic small vessel ischemic changes. There are no signs of acute infarction for technique. CONCLUSION: Slight atrophic and small vessel ischemic changes without any evidence for acute hemorrhage or mass effect. Prudence Bautista MD on November 20, 2016 at 16:48 Board Certified Radiologist. This report was verified electronically.
[2016-11-20 17:37] VITALS: BP 138/70; PULSE 62; RESP 16; RESP 18; O2SAT 99
[2016-11-20 17:41] LABS: AMPHETAMINE, URINE NEG (NEG); BARBITURATES, URINE NEG (NEG); COCAINE, URINE NEG (NEG)
[2016-11-20] MEDS ORDERED: LORazepam 2 MG/ML VIAL IV PUSH ONE (18:00)
[2016-11-20] MEDS ORDERED: LORA-392 PO (18:22)
[2016-11-23] MEDS ORDERED: SERO25TA PO (14:42)
[2016-12-01] MEDS ORDERED: FERR324T4 PO (11:11)
[2016-12-01] MEDS ORDERED: WARF-21 PO (14:54)
== END 2016-11-20 19:00 | disposition home or self-care (01) ==
LOC: PHED 15:40
DX: N30.00 Acute cystitis without hematuria (principal); R45.1 Restlessness and agitation; R44.1 Visual hallucinations; F03.90 Unspecified dementia, unspecified severity, without behavioral disturbance, psychotic disturbance, mood disturbance, and anxiety; I10 Essential (primary) hypertension; Z79.899 Other long term (current) drug therapy; Z95.0 Presence of cardiac pacemaker; Z86.2 Personal history of diseases of the blood and blood-forming organs and certain disorders involving the immune mechanism; Z86.79 Personal history of other diseases of the circulatory system
CPT/HCPCS: 70450; 80053; 80307; 81001; 82140; 85025; 87086; 96365; 96375; 99285; J0696; J2060

== ENCOUNTER 2017-05-24 14:55 | Inpatient (IN) | payer MEDICARE, OTHER ==
[~2017-05-24] VITALS: Ht 160 cm; Wt 55.4 kg
[~2017-05-24 14:55] MED LIST changes: -ASPI-110 PO; +ASPI1TAB57 PO; +LORA-392 PO; +QUET5TAB PO; -TRAZ50TA12 PO; -WARF-21 PO; +WARF-23 PO
[2017-05-24 15:26] VITALS: BP 153/88; PULSE 86; RESP 19; TEMP 98.3; O2SAT 100
--- NOTE | 2017-05-24 16:11 | PD ---
HPI Chief Complaint: Psychiatric Symptoms Time Seen by Provider: 15:19 Travel History International Travel<30 days: No Contact w/Intl Traveler<30days: No Traveled to known affect area: No History of Present Illness HPI This is an 86-year-old female that was brought in from [facility]. She has history of Alzheimer's. The daughter and granddaughter at the bedside and states that this is an ongoing problem with her outbursts. According to law enforcement report the patient, "and now suffers from Alzheimer 's and began stating she would kill herself and was threatening other members in the home and staff." The daughter states other members in the home are scared of her. On physical exam and history of present illness the patient is awake and alert, but disoriented and is telling me that she doesn't want anybody to touch her. She denies being suicidal or homicidal. Daughter states the patient has refused to eat today. Onset of symptoms unknown. Symptoms are moderate in severity. Duration unknown. No known aggravating or relieving factors. Allergies to sulfa, Macrobid, penicillin. Primary care provider is Dr. Farrar. History of Alzheimer's, pacemaker, legally blind, diabetes mellitus. PFSH Past Medical History Medical History: Unable to Obtain Anemia: Yes Atrial Fibrillation: Yes Heart Rhythm Problems: Yes (A-FIB) Cancer: No Cardiovascular Problems: Yes (PACER) High Cholesterol: No Chest Pain: No Congestive Heart Failure: Yes Dementia: Yes Diabetes: No Endocrine: No Genitourinary: No Hypertension: Yes Immune Disorder: No Musculoskeletal: No Neurologic: No Psychiatric: No Reproductive: No Respiratory: No Sickle Cell Disease: No Thyroid Disease: No ?: Not Past Surgical History Surgical History: Unable to Obtain AICD: No Appendectomy: Yes Arteriovenous Shunt: No Cardiac Surgery: Yes (PACEMAKER) Cholecystectomy: Yes Hysterectomy: Yes Insulin Pump: No Joint Replacement: No Pacemaker: Yes Other Surgery: Yes (Appendix,hysterectomy) Social History Alcohol Use: No Tobacco Use: No Substance Use: No Allergies-Medications (Allergen,Severity, Reaction): Coded Allergies: nitrofurantoin (Unverified Allergy, Severe, 03/07/17) penicillin G (Unverified Allergy, Mild, Hives, 03/07/17) Sulfa (Sulfonamide Antibiotics) (Unverified Allergy, Unknown, 03/07/17) Reported Meds & Prescriptions Reported Meds & Active Scripts Active Warfarin 5 Mg Tab 5 Mg PO DIRECTED 7.5 mg (1 1/2 of 5mg tab) Th/5mg [id number] Quetiapine (Quetiapine Fumarate) 50 Mg Tab 50 Mg PO TID Ferrous Sulfate DR (Ferrous Sulfate) 324 Mg Tabdr 324 Mg PO BID Digoxin 0.125 Mg Tab 0.125 Mg PO DAILY Vitamin B-12 (Cyanocobalamin) 1,000 Mcg Tab 1,000 Mcg PO DAILY Ativan (Lorazepam) 0.5 Mg Tab 0.5 Mg PO Q6H PRN Donepezil 10 Mg Tab 10 Mg PO HS Metoprolol Tartrate 50 Mg Tab 50 Mg PO DAILY Reported Multi-Vitamin Daily (Multiple Vitamin) 1 Tab Tab 1 Tab PO DAILY Calcium Citrate-Vitamin D 315-250 Mg-Unit Tab 2 Tab PO BID [facility] ([place] 3 Fatty Atnfv-Phoncz-Amhigbnqfp) 250-2.5-0.5 Mg Cap 1 Cap PO DAILY Dorzolamide Opth Drops (Dorzolamide HCl) 2% Soln 1 Drop EACH EYE BID Aspirin 81 (Aspirin) 81 Mg Tabdr 81 Mg PO DAILY Xalatan Opth Drops (Latanoprost) 0.005% Drops 1 Drop EACH EYE HS Review of Systems ROS Limitations: Altered Mental Status Physical Exam Exam Limitations: Altered Mental Status, Uncooperative, Refused Narrative Patient does not want anybody to touch her. Physical exam was done by visualization. GENERAL: Well-nourished, well-developed elderly, female patient, in no acute distress SKIN: Warm and dry. HEAD: Atraumatic. Normocephalic. EYES: Pupils equal and round. No scleral icterus. No injection or drainage. ENT: Mucosa pink and moist. Airway patent. NECK: Trachea midline. CARDIOVASCULAR: Regular rate. RESPIRATORY: No accessory muscle use. GASTROINTESTINAL: Flat. MUSCULOSKELETAL: No obvious deformities. No clubbing. No cyanosis. No edema. NEUROLOGICAL: Awake and alert. Oriented 3. No obvious cranial nerve deficits. Motor grossly within normal limits. Normal speech. PSYCHIATRIC: Appropriate mood and affect; insight and judgment normal. Data Data Last Documented VS Vital Signs Date Time Temp Pulse Resp B/P (MAP) Pulse Ox O2 Delivery O2 Flow Rate FiO2 05/24/17 15:26 98.3 86 19 153/88 (109) 100 Orders Orders Complete Blood Count With Diff (05/24/17 15:20) Comprehensive Metabolic Panel (05/24/17 15:20) Urinalysis - C+S If Indicated (05/24/17 15:20) Psych Screen (05/24/17 15:20) Drug Screen, Random Urine (05/24/17 15:20) Alcohol (Ethanol) (05/24/17 15:20) Salicylates (Aspirin) (05/24/17 15:20) Tylenol (Acetaminophen) (05/24/17 15:20) Haloperidol Inj (Haldol Inj) (05/24/17 16:30) Lorazepam Inj (Ativan Inj) (05/24/17 16:30) Restraints Violent (05/24/17 16:24) Diphenhydramine Inj (Benadryl Inj) (05/24/17 16:45) Labs Laboratory Tests Test 05/24/17 17:04 05/24/17 17:45 White Blood Count 4.2 TH/MM3 Red Blood Count 3.49 MIL/MM3 Hemoglobin 8.7 GM/DL Hematocrit 27.7 % Mean Corpuscular Volume 79.5 FL Mean Corpuscular Hemoglobin 24.9 PG Mean Corpuscular Hemoglobin Concent 31.4 % Red Cell Distribution Width 20.7 % Platelet Count 215 TH/MM3 Mean Platelet Volume 9.0 FL Neutrophils (%) (Auto) 74.1 % Lymphocytes (%) (Auto) 14.5 % Monocytes (%) (Auto) 9.7 % Eosinophils (%) (Auto) 1.0 % Basophils (%) (Auto) 0.7 % Neutrophils # (Auto) 3.1 TH/MM3 Lymphocytes # (Auto) 0.6 TH/MM3 Monocytes # (Auto) 0.4 TH/MM3 Eosinophils # (Auto) 0.0 TH/MM3 Basophils # (Auto) 0.0 TH/MM3 CBC Comment DIFF FINAL Differential Comment Blood Urea Nitrogen 11 MG/DL Creatinine 0.85 MG/DL Random Glucose 95 MG/DL Total Protein 7.7 GM/DL Albumin 3.1 GM/DL Calcium Level 8.4 MG/DL Alkaline Phosphatase 55 U/L Aspartate Amino Transf (AST/SGOT) 49 U/L Alanine Aminotransferase (ALT/SGPT) 18 U/L Total Bilirubin 0.4 MG/DL Sodium Level 141 MEQ/L Potassium Level 3.9 MEQ/L Chloride Level 108 MEQ/L Carbon Dioxide Level 24.5 MEQ/L Anion Gap 9 MEQ/L Estimat Glomerular Filtration Rate 64 ML/MIN Salicylates Level LESS THAN 1.7 MG/DL Acetaminophen Level LESS THAN 2.0 MCG/ML Ethyl Alcohol Level LESS THAN 3 MG/DL Urine Color LIGHT-YELLOW Urine Turbidity CLEAR Urine pH 6.5 Urine Specific Hanna 1.005 Urine Protein NEG mg/dL Urine Glucose (UA) NEG mg/dL Urine Ketones NEG mg/dL Urine Occult Blood NEG Urine Nitrite NEG Urine Bilirubin NEG Urine Urobilinogen LESS THAN 2.0 MG/DL Urine Leukocyte Esterase MOD Urine RBC LESS THAN 1 /hpf Urine WBC 2 /hpf Urine Squamous Epithelial Cells <1 /hpf Microscopic Urinalysis Comment CULT NOT INDICATED Urine Opiates Screen NEG Urine Barbiturates Screen NEG Urine Amphetamines Screen NEG Urine Benzodiazepines Screen NEG Urine Cocaine Screen NEG Urine Cannabinoids Screen NEG MDM Medical Decision Making Medical Screen Exam Complete: Yes Emergency Medical Condition: Yes Medical Record Reviewed: Yes Differential Diagnosis Alzheimer's, psychosis, medical clearance for psych evaluation Narrative Course Patient presents under a Garvey act. Physical examination and vital signs are essentially unremarkable. Patient has no medical complaints to report. Psych screen has been ordered. If the laboratory results are unremarkable, the patient will be medically cleared for psychiatric evaluation and disposition. 1840: Hgb 8.7; consistent with past levels. Discussed with Dr. Busby and he agrees patient is medically cleared for psych evaluation. Diagnosis Primary Impression: Medical clearance for psychiatric admission Condition: Stable Chantell Lopez May 24, 2017 16:11
[2017-05-24] MEDS ORDERED: HALOPERIDOL LACTATE 5 MG/ML AMP IM ONE ×2 (16:30→23:45)
[2017-05-24] MEDS ORDERED: LORazepam 2 MG/ML VIAL IM ONE ×2 (16:30→23:45)
[2017-05-24] MEDS ORDERED: diphenhydrAMINE HCL 50 MG/ML VIAL IM ONE (16:45)
--- NOTE | 2017-05-24 17:00 | PD ---
Data Data Last Documented VS Vital Signs Date Time Temp Pulse Resp B/P (MAP) Pulse Ox O2 Delivery O2 Flow Rate FiO2 05/24/17 15:26 98.3 86 19 153/88 (109) 100 Orders Orders Complete Blood Count With Diff (05/24/17 15:20) Comprehensive Metabolic Panel (05/24/17 15:20) Urinalysis - C+S If Indicated (05/24/17 15:20) Psych Screen (05/24/17 15:20) Drug Screen, Random Urine (05/24/17 15:20) Alcohol (Ethanol) (05/24/17 15:20) Salicylates (Aspirin) (05/24/17 15:20) Tylenol (Acetaminophen) (05/24/17 15:20) Haloperidol Inj (Haldol Inj) (05/24/17 16:30) Lorazepam Inj (Ativan Inj) (05/24/17 16:30) Restraints Violent (05/24/17 16:24) Diphenhydramine Inj (Benadryl Inj) (05/24/17 16:45) MDM Supervised Visit with SANTOSH: Yes Narrative Course The history, exam, and medical decision-making in the associated midlevel provider note were completed with my assistance. I reviewed and agree with the findings presented. I attest that I had a [id number] encounter with the patient on the same day, and personally performed and documented my assessment and findings in the medical record. *My assessment and Findings: This is an 86-year-old female who presents to the emergency department combative, aggressive, screaming at staff, biting and kicking. She evidently has a history of behavioral problems in the past and a long history of dementia. Patient required chemical sedation as well as physical restraints in order to protect staff. She will be evaluated and seen by psychiatry. Diagnosis Primary Impression: Medical clearance for psychiatric admission Condition: Obdulia De La Vega MD May 24, 2017 17:00
[2017-05-24 17:22] LABS: HEMATOCRIT 27.7 % (35.0-46.0); HEMOGLOBIN 8.7 GM/DL (11.6-15.3); LYMPH % 14.5 % (9.0-44.0); MEAN CELL VOLUME 79.5 FL (80.0-100.0); MEAN CORPUSCULAR HEMOGLOBIN 24.9 PG (27.0-34.0); MEAN CORPUSCULAR HGB CONC 31.4 % (32.0-36.0); MONO % 9.7 % (0.0-8.0); NEUT % 74.1 % (16.0-70.0); PLATELET COUNT 215 TH/MM3 (150-450); RED BLOOD COUNT 3.49 MIL/MM3 (4.00-5.30); RED CELL DISTRIBUTION WIDTH 20.7 % (11.6-17.2); WHITE BLOOD COUNT 4.2 TH/MM3 (4.0-11.0)
[2017-05-24 17:23] LABS: AUTOMATED NEUTROPHIL # 3.1 TH/MM3 (1.8-7.7); BASOPHIL % 0.7 % (0.0-2.0); LYMPHOCYTE # 0.6 TH/MM3 (1.0-4.8); MONOCYTE # 0.4 TH/MM3 (0-0.9)
[2017-05-24 17:45] LABS: ACETAMINOPHEN LESS THAN 2.0 MCG/ML (10.0-30.0); ALBUMIN 3.1 GM/DL (3.4-5.0); ALKALINE PHOSPHATASE 55 U/L (45-117); ALT (GPT) 18 U/L (10-53); AST (GOT) 49 U/L (15-37); BICARBONATE 24.5 MEQ/L (21.0-32.0); BLOOD UREA NITROGEN 11 MG/DL (7-18); CALCIUM 8.4 MG/DL (8.5-10.1); CHLORIDE 108 MEQ/L (98-107); CREATININE 0.85 MG/DL (0.50-1.00); GLOMERULAR FILTRATION RATE 64 ML/MIN (>89); GLUCOSE,RANDOM 95 MG/DL (74-106); SODIUM (NA) 141 MEQ/L (136-145); TOTAL BILIRUBIN ADULT 0.4 MG/DL (0.2-1.0); TOTAL PROTEIN 7.7 GM/DL (6.4-8.2)
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
[2017-05-24 18:19] LABS: BILIRUBIN, URINE NEG (NEG); BLOOD, URINE NEG (NEG); GLUCOSE,URINE NEG (NEG); KETONE, URINE NEG (NEG); NITRITE,URINE NEG (NEG); PH, URINE 6.5 (5.0-8.5); SQUAMOUS EPITHELIAL CELL URINE <1 /hpf (0-5); URINE COLOR LIGHT-YELLOW (YELLW/STRAW); URINE LEUKOCYTE ESTERASE MOD (NEG)
[2017-05-24 20:50] VITALS: BP 146/76; PULSE 84; RESP 18; TEMP 97.8; O2SAT 99
[2017-05-24] MEDS: CALCIUM/VITAMIN D 250 MG/125 U TAB PO SCH (21:00)
[2017-05-24] MEDS: DORZOLAMIDE 2% OPTH SOLN 200 DROP/10 ML BTLO EACH EYE SCH (21:00)
[2017-05-24] MEDS ORDERED: MAGNESIUM HYDROXIDE SUSP 30 ML CUP PO PRN (21:00)
[2017-05-24] MEDS ORDERED: ALUMINUM/MAGNESIUM/SIMETH 30 ML CUP PO PRN (21:00)
[2017-05-24] MEDS: LATANOPROST 0.005% OPHT SOLN 2.5 ML BTL EACH EYE SCH (21:00)
[2017-05-24] MEDS: ACETAMINOPHEN 325 MG TAB PO PRN (23:47)
[2017-05-25 06:00] VITALS: BP 167/69; PULSE 75; RESP 18; TEMP 97.3; O2SAT 100
[2017-05-25] MEDS: METOPROLOL TARTRATE 50 MG TAB PO SCH (08:22)
[2017-05-25] MEDS: ASPIRIN EC 81 MG TABEC PO SCH (08:22)
[2017-05-25] MEDS: DIGOXIN 0.125 MG TAB PO SCH (08:22)
[2017-05-25] MEDS: DORZOLAMIDE 2% OPTH SOLN 200 DROP/10 ML BTLO EACH EYE SCH ×2 (08:22→20:29)
[2017-05-25] MEDS: CALCIUM/VITAMIN D 250 MG/125 U TAB PO SCH ×2 (08:23→20:29)
--- NOTE | 2017-05-25 10:42 | HHI.HP ---
Provisional Diagnosis Admission Date May 24, 2017 at 19:08 [place] I. Alzheimer's disease late onset g 30.1 dementia and other diseases f 02.81 Certification of Person's Competence To Provide Express and Informed Consent I have personally examined Екатерина Leung , a person being served at [facility] on, May 25, 2017 10:28. Express and informed consent means consent voluntarily given in writing, by a competent person, after sufficient explanation and disclosure of the subject matter involved to enable the person to make a knowing and willful decision without any element of force, fraud, deceit, duress, or other form of constraint or coercion. This person is 18 years of age or older, is not now known to be incompetent to consent to treatment with a guardian advocate, and does not have a health care surrogate or proxy currently making medical treatment decisions. I have found this person to be one of the following: [] Competent to provide express and informed consent, as defined above, for voluntary admission to this facility and is competent to provide express and informed consent for treatment. He/she has the consistent capacity to make well reasoned, willful, and knowing decisions concerning his or her medical or mental health treatment. The person fully and consistently understands the purpose of the admission for examination/placement and is fully capable of personally exercising all rights [place]] Incompetent to provide express and informed consent to voluntary admission, and this is incompetent to provide express and informed consent to treatment. The person must be transferred to involuntary status and a petition for a guardian advocate filed with the Circuit Court. [] Refusing to provide express and informed consent to voluntary admission but is competent to provide express and informed consent for treatment. The person must be discharged or transferred to involuntary status. Form shall be completed within 24 hours of a person's arrival at the receiving facility and filed in the clinical record of each person: 1. Admitted on a voluntary basis 2. Permitted to provide express and informed consent to his/her own treatment 3. Allowed to transfer from involuntary to voluntary status 4. Prior to permitting a person to consent to his or her own treatment after having been previously found incompetent to consent to treatment. History of Present Illness Capacity: Lacks Capacity Psych Chief Complaint: patient demented with aggressive behavior at jail HPI Patient is an 86-year-old white female who comes here under Garvey act by the [place] [employer] dated 05/24/17 at 2:15 PM that document reviewed and essentially states and that suffers from Alzheimer's and began stating she would kill herself and was threatening other members in the home and staff. Patient seen screened in the ED urine toxicology negative bladder: Negative. At the present time patient sitting quietly in chair in dayroom. Patient seen with staff. She is alert confused low disorganized all 4 spheres white female appears slightly younger than her stated age. She is calm and pleasant with me has no idea about the behaviors that occurred leading to this hospitalization. She does denies suicidality voices or visions. Denies any prior psychiatric history. Denies any physical or sexual abuse. Denies any mental illness in the family. Denies any alcohol or drug use. States she has been but is , does not remember the number of children that she yes. I also spoke with patient's daughter Karrie at [phone]. She verifies 4-5 year plus history of increasing dementia. That she has been in this family type home for about 4 years of increasing behavior issues aggressive threatening behavior is more towards late afternoon into the evening. This is to the point where the owners of the [facility] are unwilling to have patient return there. Karrie is willing to become health care surrogate. It appears she already has CANDY. She will discuss with her siblings CODE STATUS. It is noted that patient had been on Seroquel 50 mg 3 times a day. Will change that to 50 mg5 PM and 10 PM and observe behaviors over the next 1-2 days. Review of Systems ROS Limitations: Altered Mental Status Past Psych History Psychological trauma history Denies and daughter verifies Violence risk - others (6 mos) Patient increasingly violent aggressive at [facility] Violence risk - self (6 mos) Patient denies today Substance Abuse History Drugs/Alcohol past 12 months Patient denies verified by daughter Past Family Social History Coded Allergies: nitrofurantoin (Unverified Allergy, Severe, 03/07/17) penicillin G (Unverified Allergy, Mild, Hives, 03/07/17) Sulfa (Sulfonamide Antibiotics) (Unverified Allergy, Unknown, 03/07/17) Active Scripts Warfarin (Warfarin) 5 Mg Tab, 5 MG PO DIRECTED for Blood Clot Prevention, # 30 TAB 5 Refills 7.5 mg (1 1/2 of 5mg tab) Th/5mg SaSuMoTuWeFr Prov:Vladimir Hawk MD 05/15/17 Quetiapine (Quetiapine) 50 Mg Tab, 50 MG PO TID, #90 TAB 0 Refills Prov:Herson Saleh Jr., MD 05/02/17 Ferrous Sulfate (Ferrous Sulfate DR) 324 Mg Tabdr, 324 MG PO BID for Nutritional Supplement, #60 TAB 5 Refills Prov:Herson Saleh Jr., MD 05/02/17 Digoxin (Digoxin) 0.125 Mg Tab, 0.125 MG PO DAILY for Regulate Heart Beat, #30 TAB 11 Refills Prov:Vladimir Hawk MD 04/30/17 Cyanocobalamin (Vitamin B-12) 1,000 Mcg Tab, 1000 MCG PO DAILY for Nutritional Supplement, #100 BOTTLE 3 Refills Prov:Vladimir Hawk MD 01/08/17 Lorazepam (Ativan) 0.5 Mg Tab, 0.5 MG PO Q6H Y for ANXIETY AND/OR AGITATION, # 20 TAB 0 Refills Prov:Nestor Jacob MD 11/20/16 Donepezil (Donepezil) 10 Mg Tab, 10 MG PO HS for Dementia, #30 TAB 11 Refills Prov:Vladmiir Hawk MD 11/06/16 Metoprolol Tartrate (Metoprolol Tartrate) 50 Mg Tab, 50 MG PO DAILY, #30 TAB 11 Refills Prov:Vladimir Hawk MD 10/02/16 Reported Medications Multiple Vitamin (Multi-Vitamin Daily) 1 Tab Tab, 1 TAB PO DAILY for Nutritional Supplement, TAB 0 Refills 09/22/16 Calcium Citrate-Vitamin D (Calcium Citrate-Vitamin D) 315-250 Mg-Unit Tab, 2 TAB PO BID for Calcium Supplement, TAB 0 Refills 07/04/16 [place] 3 Fatty Qxamx-Ogxivh-Cmcnstscnz ([facility]) 250-2.5-0.5 Mg Cap, 1 CAP PO DAILY for Nutritional Supplement, CAP 0 Refills 05/08/16 Dorzolamide Opth Drops (Dorzolamide Opth Drops) 2% Soln, 1 DROP EACH EYE BID for Glaucoma, #1 BOTTLE 0 Refills 05/08/[address] (Aspirin 81) 81 Mg Tabdr, 81 MG PO DAILY, TAB 0 Refills 04/03/16 Latanoprost Opth Drops (Xalatan Opth Drops) 0.005% Drops, 1 DROP EACH EYE HS for Glaucoma, #2.5 ML 0 Refills 04/03/16 Current Medications Medications (Trade) Dose Ordered Sig/Cj Route Start Time Stop Time Status Last Admin (Tylenol) 650 mg Q4H PRN PO 05/24/17 21:00 05/24/17 23:47 (Milk Of Magnesia Liq) 30 ml DAILY PRN PO 05/24/17 21:00 (Mag-Al Plus Susp Liq) 30 ml Q6H PRN PO 05/24/17 21:00 (Ecotrin Ec) 81 mg DAILY PO 05/25/17 09:00 (Lanoxin) 0.125 mg DAILY PO 05/25/17 09:00 (Trusopt 2% Opth Soln) 1 drop BID EACH EYE 05/24/17 21:00 (Xalatan 0.005% Opth Soln) 1 drop HS EACH EYE 05/24/17 21:00 (Lopressor) 50 mg DAILY PO 05/25/17 09:00 (Oscal-D 250-125) 500 mg BID PO 05/24/17 21:00 (Atarax) 50 mg Q6H PRN PO 05/25/17 10:30 UNV (Vitamin B12) 1,000 mcg DAILY PO 05/26/17 09:00 UNV (Aricept) 10 mg HS PO 05/25/17 21:00 UNV Non-Formulary Medication 324 mg BID PO 05/25/17 21:00 UNV Non-Formulary Medication 1 tab DAILY PO 05/26/17 09:00 UNV Non-Formulary Medication 1 cap DAILY PO 05/26/17 09:00 UNV Family Psych History No mental health history and family Social History and has 4 children has been doing family group type home for the past 4+ years Patient's Strengths (min. 2) Patient verbal cooperative has supportive family Physical Exam Patient medically cleared ED at the present time patient sitting quietly in her chair in dayroom she is in no acute distress, she is in no respiratory distress , less abdominal pain. Patient moves all 4 extremities without difficulty no abnormal motor movements noted Vital Signs Vital Signs Date Time Temp Pulse Resp B/P (MAP) Pulse Ox O2 Delivery O2 Flow Rate FiO2 05/25/17 06:00 97.3 75 18 167/69 (101) 100 I/O 05/25/17 05/25/17 05/26/17 08:00 16:00 00:00 Intake Total 0 ml 120 ml Balance 0 ml 120 ml Lab Results Test 05/24/17 17:04 05/24/17 17:45 White Blood Count 4.2 TH/MM3 Red Blood Count 3.49 MIL/MM3 Hemoglobin 8.7 GM/DL Hematocrit 27.7 % Mean Corpuscular Volume 79.5 FL Mean Corpuscular Hemoglobin 24.9 PG Mean Corpuscular Hemoglobin Concent 31.4 % Red Cell Distribution Width 20.7 % Platelet Count 215 TH/MM3 Mean Platelet Volume 9.0 FL Neutrophils (%) (Auto) 74.1 % Lymphocytes (%) (Auto) 14.5 % Monocytes (%) (Auto) 9.7 % Eosinophils (%) (Auto) 1.0 % Basophils (%) (Auto) 0.7 % Neutrophils # (Auto) 3.1 TH/MM3 Lymphocytes # (Auto) 0.6 TH/MM3 Monocytes # (Auto) 0.4 TH/MM3 Eosinophils # (Auto) 0.0 TH/MM3 Basophils # (Auto) 0.0 TH/MM3 CBC Comment DIFF FINAL Differential Comment Blood Urea Nitrogen 11 MG/DL Creatinine 0.85 MG/DL Random Glucose 95 MG/DL Total Protein 7.7 GM/DL Albumin 3.1 GM/DL Calcium Level 8.4 MG/DL Alkaline Phosphatase 55 U/L Aspartate Amino Transf (AST/SGOT) 49 U/L Alanine Aminotransferase (ALT/SGPT) 18 U/L Total Bilirubin 0.4 MG/DL Sodium Level 141 MEQ/L Potassium Level 3.9 MEQ/L Chloride Level 108 MEQ/L Carbon Dioxide Level 24.5 MEQ/L Anion Gap 9 MEQ/L Estimat Glomerular Filtration Rate 64 ML/MIN Salicylates Level LESS THAN 1.7 MG/DL Acetaminophen Level LESS THAN 2.0 MCG/ML Ethyl Alcohol Level LESS THAN 3 MG/DL Urine Color LIGHT-YELLOW Urine Turbidity CLEAR Urine pH 6.5 Urine Specific [place] 1.005 Urine Protein NEG mg/dL Urine Glucose (UA) NEG mg/dL Urine Ketones NEG mg/dL Urine Occult Blood NEG Urine Nitrite NEG Urine Bilirubin NEG Urine Urobilinogen LESS THAN 2.0 MG/DL Urine Leukocyte Esterase MOD Urine RBC LESS THAN 1 /hpf Urine WBC 2 /hpf Urine Squamous Epithelial Cells <1 /hpf Microscopic Urinalysis Comment CULT NOT INDICATED Urine Opiates Screen NEG Urine Barbiturates Screen NEG Urine Amphetamines Screen NEG Urine Benzodiazepines Screen NEG Urine Cocaine Screen NEG Urine Cannabinoids Screen NEG Mental Status Examination Appearance: Appropriate (in hospital gown) Consciousness: Alert Orientation: Person Motor Activity: Normal gait (slight shuffling) Speech: Unremarkable Language: Adequate Fund of Knowledge: Inadequate Attention and Concentration: Easily Distracted Memory: Impaired Mood: Anxious Affect: Other (good range and intensity) Thought Process & Associations: Disorganized Thought Content: Other Delusion Type: None Suicidal Ideation: No Suicidal Plan: No Suicidal Intention: No Homicidal Ideation: No Homicidal Plan: No Homicidal Intention: No Insight: Poor Judgment: Poor Assessment & Plan Problem List: (1) ALZHEIMER'S DISEASE WITH LATE ONSET ICD Codes: G30.1 - ALZHEIMER'S DISEASE WITH LATE ONSET (2) DEMENTIA IN OTH DISEASES CLASSD ELSWHR W BEHAVIORAL DISTURB ICD Codes: F02.81 - DEMENTIA IN OTH DISEASES CLASSD ELSWHR W BEHAVIORAL DISTURB Assessment & Plan Estimated LOS: 7 days issue is criteria for involuntary psychiatric hospitalization Garvey act I'll do first opinion request second opinion. I feel she does not have capacity we'll ask for healthcare surrogate and guardian advocate. Daughter Karrie is willing to be health care surrogate. Will continue medications per the med reconciliation no change the dosing schedule for the Seroquel. Will hospitalist consult was also. Placement may be problematic it appears that patient's prior placements will not accept her back Discharge Planning Need to work with patient's family related to placement issues Request HC Surrog/Guard Advoc?: Yes Eduardo Mills MD May 25, 2017 10:42
[2017-05-25] MEDS: QUEtiapine FUMARATE 25 MG TAB PO SCH ×3 (12:00→20:29)
--- NOTE | 2017-05-25 14:57 | PD.CONS ---
HPI [facility] Consult Requested By Psychiatry team, LEONOR Lopez Reason for Consult Multiple medical condition Primary Care Physician Unknown Diagnoses: History of Present Illness Written by Becky Chaves, acting as scribe for Dr. Shaikh on 05/25/17 at 14:57. This note was transcribed by scribe LEONOR Cheng. I, Dr. Real Shaikh personally performed the history, physical exam, and medical decision making; and confirmed the accuracy of the information in the transcribed note. Authenticated by Dr. Real Shaikh on 05/25/17 at 1510. Patient is an 86-year-old female who came in from [facility] with primary medical history of Alzheimer's disease, A. fib, PPM, HTN who came into the ED secondary to Alzheimer's outbursts. As per review of records, according to law enforcement report the patient, "and now suffers from Alzheimer's and began stating she would kill herself and was threatening other members in the home and staff." She is now admitted to inpatient psychiatry unit for further evaluation. Consulted for medical management. Patient seen and examined today. Patient is confused. States that she is in [place]. Patient is unable to tell the whole lot of her history due to confusion. States that her mom and dad does not talk to her that much because they don't speak Sami. States that she uses alcohol sometimes. Complaints of not feeling well, states she was eating earlier but did not sit well on her. Denies vomiting complaints of some nausea but denies abdominal pain. Denies SOB/ dyspnea. She was hallucinating while being examined stating "you drop something, you drop your pants is straight there on the floor." Review of Systems ROS Limitations: Poor Historian Past Family Social History Allergies: Coded Allergies: nitrofurantoin (Unverified Allergy, Severe, 03/07/17) penicillin G (Unverified Allergy, Mild, Hives, 03/07/17) Sulfa (Sulfonamide Antibiotics) (Unverified Allergy, Unknown, 03/07/17) Past Medical History Per review of records, Pulled from EMR, as instructed by Calrie Alzheimer's disease Legally blind Diabetes A. fib HTN Past Surgical History Per review of records, Pulled from hospitalization, as instructed by Carlie Appendectomy neck sent hysterectomy Permanent pacemaker Reported Medications Reported Meds & Active Scripts Active Warfarin 5 Mg Tab 5 Mg PO DIRECTED 7.5 mg (1 1/2 of 5mg tab) Th/5mg SaSuMoTuWeFr Quetiapine (Quetiapine Fumarate) 50 Mg Tab 50 Mg PO TID Ferrous Sulfate DR (Ferrous Sulfate) 324 Mg Tabdr 324 Mg PO BID Digoxin 0.125 Mg Tab 0.125 Mg PO DAILY Vitamin B-12 (Cyanocobalamin) 1,000 Mcg Tab 1,000 Mcg PO DAILY Ativan (Lorazepam) 0.5 Mg Tab 0.5 Mg PO Q6H PRN Donepezil 10 Mg Tab 10 Mg PO HS Metoprolol Tartrate 50 Mg Tab 50 Mg PO DAILY Reported Multi-Vitamin Daily (Multiple Vitamin) 1 Tab Tab 1 Tab PO DAILY Calcium Citrate-Vitamin D 315-250 Mg-Unit Tab 2 Tab PO BID [facility] ([place] 3 Fatty Wrlps-Puksvq-Gvtoerffvk) 250-2.5-0.5 Mg Cap 1 Cap PO DAILY Dorzolamide Opth Drops (Dorzolamide HCl) 2% Soln 1 Drop EACH EYE BID Aspirin 81 (Aspirin) 81 Mg Tabdr 81 Mg PO DAILY Xalatan Opth Drops (Latanoprost) 0.005% Drops 1 Drop EACH EYE HS Active Ordered Medications Current Medications Medications (Trade) Dose Ordered Sig/Cj Route Start Time Stop Time Status Last Admin (Tylenol) 650 mg Q4H PRN PO 05/24/17 21:00 05/24/17 23:47 (Milk Of Magnesia Liq) 30 ml DAILY PRN PO 05/24/17 21:00 (Mag-Al Plus Susp Liq) 30 ml Q6H PRN PO 05/24/17 21:00 (Ecotrin Ec) 81 mg DAILY PO 05/25/17 09:00 (Lanoxin) 0.125 mg DAILY PO 05/25/17 09:00 (Trusopt 2% Opth Soln) 1 drop BID EACH EYE 05/24/17 21:00 (Xalatan 0.005% Opth Soln) 1 drop HS EACH EYE 05/24/17 21:00 (Lopressor) 50 mg DAILY PO 05/25/17 09:00 (Oscal-D 250-125) 500 mg BID PO 05/24/17 21:00 (Atarax) 50 mg Q6H PRN PO 05/25/17 12:00 (Vitamin B12) 1,000 mcg DAILY PO 05/26/17 09:00 (Aricept) 10 mg HS PO 05/25/17 21:00 (Ferrous Sulfate) 324 mg BID PO 05/25/17 21:00 (Theragran) 1 tab DAILY PO 05/26/17 09:00 (Ocuvite) 1 tab DAILY PO 05/26/17 09:00 (SEROquel) 50 mg DAILY@1200,1700,2200 PO 05/25/17 12:00 05/25/17 12:00 Family History Unable to obtain. Denies any family medical history Social History States she uses alcohol sometimes Denies tobacco use Denies illicit drug Physical Exam Vital Signs Vital Signs Date Time Temp Pulse Resp B/P (MAP) Pulse Ox O2 Delivery O2 Flow Rate FiO2 05/25/17 06:00 97.3 75 18 167/69 (101) 100 05/24/17 20:50 97.8 84 18 146/76 (99) 99 05/24/17 15:26 98.3 86 19 153/88 (109) 100 Physical Exam GENERAL: This is a well-nourished, disheveled, in no apparent distress. Appears anxious. SKIN: Cool and dry. HEAD: Normocephalic. EYES: Pupils equal round and reactive. Extraocular motions intact. No scleral icterus. No injection or drainage. ENT: Nose without bleeding. Throat without erythema. Uvula midline. Airway patent. NECK: Trachea midline. CARDIOVASCULAR: Regular rate and rhythm without murmurs, gallops, or rubs. RESPIRATORY: Clear to auscultation. Breath sounds equal bilaterally. No wheezes , rales, or rhonchi. GASTROINTESTINAL: Abdomen soft, nondistended. No guarding. Also is active 4. Nontender. MUSCULOSKELETAL: Extremities without clubbing, cyanosis, or edema. NEUROLOGICAL: Awake and alert. Confuse. Motor and sensory grossly within normal limits. Normal speech. Laboratory Laboratory Tests Test 05/24/17 17:04 05/24/17 17:45 White Blood Count 4.2 Red Blood Count 3.49 Hemoglobin 8.7 Hematocrit 27.7 Mean Corpuscular Volume 79.5 Mean Corpuscular Hemoglobin 24.9 Mean Corpuscular Hemoglobin Concent 31.4 Red Cell Distribution Width 20.7 Platelet Count 215 Mean Platelet Volume 9.0 Neutrophils (%) (Auto) 74.1 Lymphocytes (%) (Auto) 14.5 Monocytes (%) (Auto) 9.7 Eosinophils (%) (Auto) 1.0 Basophils (%) (Auto) 0.7 Neutrophils # (Auto) 3.1 Lymphocytes # (Auto) 0.6 Monocytes # (Auto) 0.4 Eosinophils # (Auto) 0.0 Basophils # (Auto) 0.0 CBC Comment DIFF FINAL Differential Comment Blood Urea Nitrogen 11 Creatinine 0.85 Random Glucose 95 Total Protein 7.7 Albumin 3.1 Calcium Level 8.4 Alkaline Phosphatase 55 Aspartate Amino Transf (AST/SGOT) 49 Alanine Aminotransferase (ALT/SGPT) 18 Total Bilirubin 0.4 Sodium Level 141 Potassium Level 3.9 Chloride Level 108 Carbon Dioxide Level 24.5 Anion Gap 9 Estimat Glomerular Filtration Rate 64 Salicylates Level LESS THAN 1.7 Acetaminophen Level LESS THAN 2.0 Ethyl Alcohol Level LESS THAN 3 Urine Color LIGHT-YELLOW Urine Turbidity CLEAR Urine pH 6.5 Urine Specific [place] 1.005 Urine Protein NEG Urine Glucose (UA) NEG Urine Ketones NEG Urine Occult Blood NEG Urine Nitrite NEG Urine Bilirubin NEG Urine Urobilinogen LESS THAN 2.0 Urine Leukocyte Esterase MOD Urine RBC LESS THAN 1 Urine WBC 2 Urine Squamous Epithelial Cells <1 Microscopic Urinalysis Comment CULT NOT INDICATED Urine Opiates Screen NEG Urine Barbiturates Screen NEG Urine Amphetamines Screen NEG Urine Benzodiazepines Screen NEG Urine Cocaine Screen NEG Urine Cannabinoids Screen NEG Result Diagram: 05/24/17 1704 05/24/17 170 Assessment and Plan Problem List: (1) Alzheimer disease ICD Code: G30.9 - Alzheimer's disease, unspecified; F02.80 - Dementia in other diseases classified elsewhere without behavioral disturbance (2) Atrial fibrillation, controlled ICD Code: I48.91 - Atrial fibrillation, controlled Status: Acute (3) Dementia ICD Code: F03.90 - Dementia Status: Acute (4) HTN (hypertension) ICD Code: I10 - Essential (primary) hypertension Assessment and Plan Patient is an 86-year-old female who came in from [facility] with primary medical history of Alzheimer's disease, A. fib, PPM, HTN who came into the ED secondary to Alzheimer's outbursts. Dementia with behavioral disturbances Alzheimer's disease - Managed by psychiatry team Uzair fib, chronic HTN, uncontrolled - Continue metoprolol 50 mg daily, digoxin 0.125 mg - Patient has been refusing medication possibly cause of uncontrolled blood pressure. - Monitor BP trend - Pending TSH Anemia possibly of chronic disease - H&H 8.7/.7 - Reviewed previous H&H, near her baseline 8.1-10 - Check iron panel, ferritin DVT prop ambulatory Code Status Full code Discussed Condition With Patient, nursing Becky Escamilla May 25, 2017 14:57 Nito Shaikh DO May 25, 2017 15:02
--- NOTE | 2017-05-25 15:13 | PD.PSY.CON ---
Provisional Diagnosis Admission Date May 24, 2017 at 19:08 [place] I. Alzheimer's disease late onset g 30.1 dementia and other diseases f 02.81 History of Present Illness Service Psychiatry Consult Requested By Dr. Mills Reason for Consult Second opinion Primary Care Physician Unknown HPI Patient is an 86-year-old white female who comes here under Garvey act by the [place] [employer] dated 05/24/17 at 2:15 PM that document reviewed and essentially states and that suffers from Alzheimer's and began stating she would kill herself and was threatening other members in the home and staff. Patient seen screened in the ED urine toxicology negative bladder: Negative. At the present time patient sitting quietly in chair in dayroom. Patient seen with staff. She is alert confused low disorganized all 4 spheres white female appears slightly younger than her stated age. She is calm and pleasant with me has no idea about the behaviors that occurred leading to this hospitalization. She does denies suicidality voices or visions. Denies any prior psychiatric history. Denies any physical or sexual abuse. Denies any mental illness in the family. Denies any alcohol or drug use. States she has been but is , does not remember the number of children that she yes. I also spoke with patient's daughter Karrie at [phone]. She verifies 4-5 year plus history of increasing dementia. That she has been in this family type home for about 4 years of increasing behavior issues aggressive threatening behavior is more towards late afternoon into the evening. This is to the point where the owners of the care home are unwilling to have patient return there. Karrie is willing to become health care surrogate. It appears she already has CANDY. She will discuss with her siblings CODE STATUS. It is noted that patient had been on Seroquel 50 mg 3 times a day. Will change that to 50 mg5 PM and 10 PM and observe behaviors over the next 1-2 days. The patient is a 86-year-old woman, she has history of dementia, she was brought on the Garvey act due to aggressive behavior and also with suicidal ideation with a plan of killing herself or killing a staff member at her residential facility. Patient was consulted to me for second opinion. On psychiatric evaluation the patient is found in the recreational area of the unit. He is calm, superficially cooperative, confused and disoriented. He says that the reason she is here is because she came to play with the girls and boys. She said that she has been looking for her father and her mother, but she cannot find them. Patient doesn't recognize what she is, she doesn't know the date, she says that she is here in the playroom. Patient is very labile, start crying during the evaluation asking for her parents and asking why she looks so old, "why I looked that I am in the 50s". She denies suicidal and homicidal ideation, she denies visual and auditory hallucinations. As per staff members, the patient has been disruptive in the unit, a little bit agitated. Past Family Social History Coded Allergies: nitrofurantoin (Unverified Allergy, Severe, 03/07/17) penicillin G (Unverified Allergy, Mild, Hives, 03/07/17) Sulfa (Sulfonamide Antibiotics) (Unverified Allergy, Unknown, 03/07/17) Active Scripts Warfarin (Warfarin) 5 Mg Tab, 5 MG PO DIRECTED for Blood Clot Prevention, # 30 TAB 5 Refills 7.5 mg (1 /2 of 5mg tab) Th/5mg SaSuMoTuWeFr Prov:Vladimir Hawk MD 05/15/17 Quetiapine (Quetiapine) 50 Mg Tab, 50 MG PO TID, #90 TAB 0 Refills Prov:Herson Saleh Jr., MD 05/02/[address] (Ferrous Sulfate DR) 324 Mg Tabdr, 324 MG PO BID for Nutritional Supplement, #60 TAB 5 Refills Prov:Herson Saleh Jr., MD 05/02/17 Digoxin (Digoxin) 0.125 Mg Tab, 0.125 MG PO DAILY for Regulate Heart Beat, #30 TAB 11 Refills Prov:Vladimir Hawk MD 04/30/17 Cyanocobalamin (Vitamin B-12) 1,000 Mcg Tab, 1000 MCG PO DAILY for Nutritional Supplement, #100 BOTTLE 3 Refills Prov:Vladmiir Hawk MD 01/08/17 Lorazepam (Ativan) 0.5 Mg Tab, 0.5 MG PO Q6H Y for ANXIETY AND/OR AGITATION, # 20 TAB 0 Refills Prov:Nestor Jacob MD 11/20/16 Donepezil (Donepezil) 10 Mg Tab, 10 MG PO HS for Dementia, #30 TAB 11 Refills Prov:Vladimir Hawk MD 11/06/16 Metoprolol Tartrate (Metoprolol Tartrate) 50 Mg Tab, 50 MG PO DAILY, #30 TAB 11 Refills Prov:Vladimir Hawk MD 10/02/16 Reported Medications Multiple Vitamin (Multi-Vitamin Daily) 1 Tab Tab, 1 TAB PO DAILY for Nutritional Supplement, TAB 0 Refills 09/22/16 Calcium Citrate-Vitamin D (Calcium Citrate-Vitamin D) 315-250 Mg-Unit Tab, 2 TAB PO BID for Calcium Supplement, TAB 0 Refills 07/04/16 [place] 3 Fatty Rzfck-Kkzzub-Qxlwfulhqp ([facility]) 250-2.5-0.5 Mg Cap, 1 CAP PO DAILY for Nutritional Supplement, CAP 0 Refills 05/08/16 Dorzolamide Opth Drops (Dorzolamide Opth Drops) 2% Soln, 1 DROP EACH EYE BID for Glaucoma, #1 BOTTLE 0 Refills 05/08/[address] (Aspirin 81) 81 Mg Tabdr, 81 MG PO DAILY, TAB 0 Refills 04/03/16 Latanoprost Opth Drops (Xalatan Opth Drops) 0.005% Drops, 1 DROP EACH EYE HS for Glaucoma, #2.5 ML 0 Refills 04/03/16 Current Medications Medications (Trade) Dose Ordered Sig/Cj Route Start Time Stop Time Status Last Admin (Tylenol) 650 mg Q4H PRN PO 05/24/17 21:00 05/24/17 23:47 (Milk Of Magnesia Liq) 30 ml DAILY PRN PO 05/24/17 21:00 (Mag-Al Plus Susp Liq) 30 ml Q6H PRN PO 05/24/17 21:00 (Ecotrin Ec) 81 mg DAILY PO 05/25/17 09:00 (Lanoxin) 0.125 mg DAILY PO 05/25/17 09:00 (Trusopt 2% Opth Soln) 1 drop BID EACH EYE 05/24/17 21:00 (Xalatan 0.005% Opth Soln) 1 drop HS EACH EYE 05/24/17 21:00 (Lopressor) 50 mg DAILY PO 05/25/17 09:00 (Oscal-D 250-125) 500 mg BID PO 05/24/17 21:00 (Atarax) 50 mg Q6H PRN PO 05/25/17 12:00 (Vitamin B12) 1,000 mcg DAILY PO 05/26/17 09:00 (Aricept) 10 mg HS PO 05/25/17 21:00 (Ferrous Sulfate) 324 mg BID PO 05/25/17 21:00 (Theragran) 1 tab DAILY PO 05/26/17 09:00 (Ocuvite) 1 tab DAILY PO 05/26/17 09:00 (SEROquel) 50 mg DAILY@1200,1700,2200 PO 05/25/17 12:00 05/25/17 12:00 Patient's Strengths (min. 2) Patient verbal cooperative has supportive family Physical Exam Vital Signs Vital Signs Date Time Temp Pulse Resp B/P (MAP) Pulse Ox O2 Delivery O2 Flow Rate FiO2 05/25/17 06:00 97.3 75 18 167/69 (101) 100 I/O 05/25/17 05/25/17 05/26/17 08:00 16:00 00:00 Intake Total 0 ml 180 ml Balance 0 ml 180 ml Lab Results Test 05/24/17 17:04 05/24/17 17:45 White Blood Count 4.2 TH/MM3 Red Blood Count 3.49 MIL/MM3 Hemoglobin 8.7 GM/DL Hematocrit 27.7 % Mean Corpuscular Volume 79.5 FL Mean Corpuscular Hemoglobin 24.9 PG Mean Corpuscular Hemoglobin Concent 31.4 % Red Cell Distribution Width 20.7 % Platelet Count 215 TH/MM3 Mean Platelet Volume 9.0 FL Neutrophils (%) (Auto) 74.1 % Lymphocytes (%) (Auto) 14.5 % Monocytes (%) (Auto) 9.7 % Eosinophils (%) (Auto) 1.0 % Basophils (%) (Auto) 0.7 % Neutrophils # (Auto) 3.1 TH/MM3 Lymphocytes # (Auto) 0.6 TH/MM3 Monocytes # (Auto) 0.4 TH/MM3 Eosinophils # (Auto) 0.0 TH/MM3 Basophils # (Auto) 0.0 TH/MM3 CBC Comment DIFF FINAL Differential Comment Blood Urea Nitrogen 11 MG/DL Creatinine 0.85 MG/DL Random Glucose 95 MG/DL Total Protein 7.7 GM/DL Albumin 3.1 GM/DL Calcium Level 8.4 MG/DL Alkaline Phosphatase 55 U/L Aspartate Amino Transf (AST/SGOT) 49 U/L Alanine Aminotransferase (ALT/SGPT) 18 U/L Total Bilirubin 0.4 MG/DL Sodium Level 141 MEQ/L Potassium Level 3.9 MEQ/L Chloride Level 108 MEQ/L Carbon Dioxide Level 24.5 MEQ/L Anion Gap 9 MEQ/L Estimat Glomerular Filtration Rate 64 ML/MIN Salicylates Level LESS THAN 1.7 MG/DL Acetaminophen Level LESS THAN 2.0 MCG/ML Ethyl Alcohol Level LESS THAN 3 MG/DL Urine Color LIGHT-YELLOW Urine Turbidity CLEAR Urine pH 6.5 Urine Specific [place] 1.005 Urine Protein NEG mg/dL Urine Glucose (UA) NEG mg/dL Urine Ketones NEG mg/dL Urine Occult Blood NEG Urine Nitrite NEG Urine Bilirubin NEG Urine Urobilinogen LESS THAN 2.0 MG/DL Urine Leukocyte Esterase MOD Urine RBC LESS THAN 1 /hpf Urine WBC 2 /hpf Urine Squamous Epithelial Cells <1 /hpf Microscopic Urinalysis Comment CULT NOT INDICATED Urine Opiates Screen NEG Urine Barbiturates Screen NEG Urine Amphetamines Screen NEG Urine Benzodiazepines Screen NEG Urine Cocaine Screen NEG Urine Cannabinoids Screen NEG Mental Status Examination Appearance: Appropriate (in hospital gown) Consciousness: Alert Orientation: Person Motor Activity: Normal gait (slight shuffling) Speech: Unremarkable Language: Adequate Fund of Knowledge: Inadequate Attention and Concentration: Easily Distracted Memory: Impaired Mood: Anxious Affect: Other (good range and intensity) Thought Process & Associations: Disorganized Thought Content: Other Delusion Type: None Suicidal Ideation: No Suicidal Plan: No Suicidal Intention: No Homicidal Ideation: No Homicidal Plan: No Homicidal Intention: No Insight: Poor Judgment: Poor Assessment & Plan Problem List: (1) ALZHEIMER'S DISEASE WITH LATE ONSET ICD Codes: G30.1 - ALZHEIMER'S DISEASE WITH LATE ONSET (2) DEMENTIA IN OTH DISEASES CLASSD ELSWHR W BEHAVIORAL DISTURB ICD Codes: F02.81 - DEMENTIA IN OTH DISEASES CLASSD ELSWHR W BEHAVIORAL DISTURB Assessment & Plan: I have seen and examined this patient. Reviewed documentation. I agree and concur with Dr. Mills's assessment and plan. Consult appreciated. Assessment & Plan Estimated LOS: days Request HC Surrog/Guard Advoc?: Yes Kyree Webster MD May 25, 2017 15:13
[2017-05-25 18:00] VITALS: BP 156/87; PULSE 98; RESP 16; TEMP 98.9; O2SAT 96
[2017-05-25] MEDS: hydrOXYzine HCL 50 MG TAB PO PRN (20:29)
[2017-05-25] MEDS: FERROUS SULFATE 325 MG (65 MG ELEMENTAL IRON) TAB PO SCH (20:29)
[2017-05-25] MEDS: LATANOPROST 0.005% OPHT SOLN 2.5 ML BTL EACH EYE SCH (20:29)
[2017-05-25] MEDS: DONEPEZIL HCL 5 MG TAB PO SCH (21:00)
[2017-05-26 06:29] VITALS: BP 165/81; PULSE 80; RESP 17; TEMP 97.2; O2SAT 98
[2017-05-26] MEDS: MULTIVITAMIN TAB PO SCH (08:19)
[2017-05-26] MEDS: DIGOXIN 0.125 MG TAB PO SCH (08:19)
[2017-05-26] MEDS: DORZOLAMIDE 2% OPTH SOLN 200 DROP/10 ML BTLO EACH EYE SCH ×2 (08:19→21:00)
[2017-05-26] MEDS: ASPIRIN EC 81 MG TABEC PO SCH (08:19)
[2017-05-26] MEDS: FERROUS SULFATE 325 MG (65 MG ELEMENTAL IRON) TAB PO SCH ×2 (08:19→21:00)
[2017-05-26] MEDS: CALCIUM/VITAMIN D 250 MG/125 U TAB PO SCH ×2 (08:19→21:00)
[2017-05-26] MEDS: CYANOCOBALAMIN 1,000 MCG TAB PO SCH (08:19)
[2017-05-26] MEDS: METOPROLOL TARTRATE 50 MG TAB PO SCH (08:19)
[2017-05-26] MEDS: MULTIVITAMIN-OPHTHALMIC 1 TAB PO SCH (08:21)
[2017-05-26 09:03] LABS: BICARBONATE 27.6 MEQ/L (21.0-32.0); BLOOD UREA NITROGEN 12 MG/DL (7-18); CALCIUM 9.2 MG/DL (8.5-10.1); CHLORIDE 106 MEQ/L (98-107); CREATININE 0.84 MG/DL (0.50-1.00); GLOMERULAR FILTRATION RATE 64 ML/MIN (>89); GLUCOSE,RANDOM 105 MG/DL (74-106); IRON (FE) 27 MCG/DL (50-170); SODIUM (NA) 140 MEQ/L (136-145)
[2017-05-26 09:05] LABS: CHOLESTEROL 109 MG/DL (120-200); TRIGLYCERIDES 59 MG/DL (42-150)
[2017-05-26 09:30] LABS: % SATURATION IRON PROFILE 8.7 % (20-50); CHOLESTEROL/ HDL RATIO 2.23 RATIO; FERRITIN 51 NG/ML (8-252); HDL CHOLESTEROL 48.7 MG/DL (40.0-60.0); LDL CHOLESTEROL 49 MG/DL (0-99); TOTAL IRON BINDING CAPACITY 309 MCG/DL (250-450)
[2017-05-26] MEDS: QUEtiapine FUMARATE 25 MG TAB PO SCH ×3 (11:07→22:00)
[2017-05-26 11:13] VITALS: BP 110/56; PULSE 96
[2017-05-26] MEDS ORDERED: POTASSIUM CHLORIDE 10 MEQ CONTROLLED RELEASE TAB PO ONE (11:45)
[2017-05-26 12:18] LABS: HEMOGLOBIN A1C 4.9 % (4.3-6.0)
--- NOTE | 2017-05-26 15:17 | EKG ---
Date Performed: 05/25/2017 Time Performed: 13:01:13 PTAGE: 86 years EKG: ATRIAL FIBRILLATION WITH ABERRANT CONDUCTION OR VENTRICULAR PREMATURE COMPLEXES, with under lying ventricular Pacemaker with occassional conduction. With ST-T changes that were less prominant, esspecially Inferiorly, and anterolaterally. This tracing shows atrial fibrillation as underlying rhy thm plus Occassional pacer beats. ABNORMAL ECG PREVIOUS TRACING : 07/04/2016 15.36 DOCTOR: Jp Gutierres Interpretating Date/Time 05/26/2017 15:16:29
--- NOTE | 2017-05-26 18:14 | HHI.PYPN ---
Subjective Chief Complaint: patient demented with aggressive behavior at alf Remarks Patient was seen and case discussed with nursing. Patient is alert and oriented 1. Behaving well on the unit. Compliant with her medications. Patient had a productive visit from her daughter today. Compliant with her medications. Mental Status Examination Appearance: Appropriate (in hospital gown) Consciousness: Alert Orientation: Person Motor Activity: Normal gait (slight shuffling) Speech: Unremarkable Language: Adequate Fund of Knowledge: Inadequate Attention and Concentration: Easily Distracted Memory: Impaired Mood: Anxious Affect: Other (good range and intensity) Thought Process & Associations: Disorganized Thought Content: Other Delusion Type: None Suicidal Ideation: No Suicidal Plan: No Suicidal Intention: No Homicidal Ideation: No Homicidal Plan: No Homicidal Intention: No Insight: Poor Judgment: Poor Results Labs Test 05/26/17 07:33 Blood Urea Nitrogen 12 MG/DL Creatinine 0.84 MG/DL Random Glucose 105 MG/DL Calcium Level 9.2 MG/DL Sodium Level 140 MEQ/L Potassium Level 3.4 MEQ/L Chloride Level 106 MEQ/L Carbon Dioxide Level 27.6 MEQ/L Anion Gap 6 MEQ/L Estimat Glomerular Filtration Rate 64 ML/MIN Hemoglobin A1c 4.9 % Iron Level 27 MCG/DL Total Iron Binding Capacity 309 MCG/DL Percent Iron Saturation 8.7 % Ferritin 51 NG/ML Triglycerides Level 59 MG/DL Cholesterol Level 109 MG/DL LDL Cholesterol 49 MG/DL HDL Cholesterol 48.7 MG/DL Cholesterol/HDL Ratio 2.23 RATIO Vitamin B12 Level 1939 PG/ML 25-Hydroxy Vitamin D Total 16.1 ng/ML Thyroid Stimulating Hormone 3rd Gen 1.850 uIU/ML Vitals/IOs Vital Signs Date Time Temp Pulse Resp B/P (MAP) Pulse Ox O2 Delivery O2 Flow Rate FiO2 05/26/17 11:13 96 110/56 (74) 05/26/17 06:29 97.2 17 98 Intake and Output 05/26/17 05/26/17 05/27/17 08:00 16:00 00:00 Intake Total 120 ml 120 ml 240 ml Balance 120 ml 120 ml 240 ml Assessment & Plan Problem List: (1) ALZHEIMER'S DISEASE WITH LATE ONSET ICD Codes: G30.1 - ALZHEIMER'S DISEASE WITH LATE ONSET (2) DEMENTIA IN OTH DISEASES CLASSD ELSR W BEHAVIORAL DISTURB ICD Codes: F02.81 - DEMENTIA IN OTH DISEASES CLASSD ELSR W BEHAVIORAL DISTURB Assessment & Plan Continue current treatment plan Justification for Cont. Inpt. Patient would decompensate in a less restrictive setting Request HC Surrog/Guard Advoc?: Yes Panchito Hannon DO May 26, 2017 18:14
[2017-05-26] MEDS: LATANOPROST 0.005% OPHT SOLN 2.5 ML BTL EACH EYE SCH (21:00)
[2017-05-26] MEDS: DONEPEZIL HCL 5 MG TAB PO SCH (21:00)
[2017-05-26] MEDS: hydrOXYzine HCL 50 MG TAB PO PRN (22:30)
[2017-05-26] MEDS: ACETAMINOPHEN 325 MG TAB PO PRN (22:30)
[2017-05-26 23:30] VITALS: BP 106/58; PULSE 85; RESP 16; TEMP 98.4
[2017-05-27] MEDS: DORZOLAMIDE 2% OPTH SOLN 200 DROP/10 ML BTLO EACH EYE SCH ×2 (09:00→22:04)
[2017-05-27] MEDS: MULTIVITAMIN-OPHTHALMIC 1 TAB PO SCH (09:00)
[2017-05-27 09:10] VITALS: BP 127/63; PULSE 79; RESP 16; O2SAT 98
[2017-05-27] MEDS: CALCIUM/VITAMIN D 250 MG/125 U TAB PO SCH ×2 (09:25→22:03)
[2017-05-27] MEDS: METOPROLOL TARTRATE 50 MG TAB PO SCH (09:25)
[2017-05-27] MEDS: MULTIVITAMIN TAB PO SCH (09:25)
[2017-05-27] MEDS: ASPIRIN EC 81 MG TABEC PO SCH (09:25)
[2017-05-27] MEDS: FERROUS SULFATE 325 MG (65 MG ELEMENTAL IRON) TAB PO SCH ×2 (09:25→22:04)
[2017-05-27] MEDS: CHOLECALCIFEROL (VIT D3) 5000 UNIT CAP PO SCH (09:25)
[2017-05-27] MEDS: DIGOXIN 0.125 MG TAB PO SCH (09:25)
[2017-05-27] MEDS: CYANOCOBALAMIN 1,000 MCG TAB PO SCH (09:25)
[2017-05-27] MEDS: QUEtiapine FUMARATE 25 MG TAB PO SCH ×3 (12:00→22:08)
--- NOTE | 2017-05-27 13:35 | HHI.PR ---
Subjective Remarks Follow-up visit Alzheimer's disease, A. fib, PPM, HTN. Patient seen and examined today sitting in a chair. Reports she is doing well. Patient is confused but able to follow commands and pleasant. As per nursing, Coumadin was not restarted on the patient. Discuss with patient that she will be restarted on Coumadin but they need to draw labs on her. Discuss with nursing that we will can be restarting Coumadin after lab draws and results. Patient denies any pain or discomfort. Denies chest pain, palpitations, headache, dizziness. Denies abdominal pain, nausea, vomiting, diarrhea. Denies dysuria. Objective Vitals Vital Signs Date Time Temp Pulse Resp B/P (MAP) Pulse Ox O2 Delivery O2 Flow Rate FiO2 05/27/17 09:10 79 16 127/63 (84) 98 05/26/17 23:30 98.4 85 16 106/58 (74) 05/26/17 23:30 20 I/O 05/26/17 05/26/17 05/26/17 05/27/17 05/27/17 05/27/17 07:00 15:00 23:00 07:00 15:00 23:00 Intake Total 0 ml 240 ml 480 ml Balance 0 ml 240 ml 480 ml Intake Oral 0 ml 240 ml 480 ml # Voids 3 1 1 Result Diagram: 05/24/17 1704 05/26/17 0733 Objective Remarks GENERAL: This is a well-nourished, in no apparent distress. Appears anxious. SKIN: Cool and dry. HEAD: Normocephalic. EYES: Pupils equal round and reactive. Extraocular motions intact. No scleral icterus. No injection or drainage. ENT: Nose without bleeding. Throat without erythema. Uvula midline. Airway patent. NECK: Trachea midline. CARDIOVASCULAR: Regular rate and rhythm without murmurs, gallops, or rubs. RESPIRATORY: Clear to auscultation. Breath sounds equal bilaterally. No wheezes , rales, or rhonchi. GASTROINTESTINAL: Abdomen soft, nondistended. No guarding. Also is active 4. Nontender. MUSCULOSKELETAL: Extremities without clubbing, cyanosis, or edema. NEUROLOGICAL: Awake and alert. Confuse. Motor and sensory grossly within normal limits. Normal speech. A/P Problem List: (1) Alzheimer disease ICD Code: G30.9 - Alzheimer's disease, unspecified; F02.80 - Dementia in other diseases classified elsewhere without behavioral disturbance (2) Atrial fibrillation, controlled ICD Code: I48.91 - Atrial fibrillation, controlled Status: Acute (3) Dementia ICD Code: F03.90 - Dementia Status: Acute (4) HTN (hypertension) ICD Code: I10 - Essential (primary) hypertension Assessment and Plan Patient is an 86-year-old female who came in from [facility] with primary medical history of Alzheimer's disease, A. fib, PPM, HTN who came into the ED secondary to Alzheimer's outbursts. Dementia with behavioral disturbances Alzheimer's disease - Managed by psychiatry team A. fib, chronic HTN, uncontrolled - Continue metoprolol 50 mg daily, digoxin 0.125 mg - Patient has been refusing medication possibly cause of uncontrolled blood pressure. - Monitor BP trend - TSH within normal - Previously on Coumadin. Check INR today. Check H&H. Start Coumadin 5 mg if everything is within normal. Discussed with nursing. Monitor INR daily. Anemia possibly of chronic disease - H&H 8.7/27.7 - Reviewed previous H&H, near her baseline 8.1-10 - Check iron panel, ferritin Vitamin D insufficiency - Start vitamin D supplementation. Repeat vitamin D levels in 3 months and outpatient. DVT prop ambulatory Becky Escamilla May 27, 2017 13:35
[2017-05-27 15:42] LABS: INTERNATIONAL NORMALIZED RATIO 1.4 RATIO; PROTHROMBIN TIME - PATIENT 14.3 SEC (9.8-11.6)
[2017-05-27] MEDS: WARFARIN SOD 5 MG TAB PO SCH (16:00)
--- NOTE | 2017-05-27 16:12 | HHI.PYPN ---
Subjective Chief Complaint: patient demented with aggressive behavior at [facility] Remarks Patient was seen and case discussed with nursing. Patient is alert and oriented 1. She remains labile with loose thought process. She is oppositional with medication and with her care throughout the day. no Behavioral outbursts today Mental Status Examination Appearance: Appropriate (in hospital gown) Consciousness: Alert Orientation: Person Motor Activity: Normal gait (slight shuffling) Speech: Unremarkable Language: Adequate Fund of Knowledge: Inadequate Attention and Concentration: Easily Distracted Memory: Impaired Mood: Anxious Affect: Other (good range and intensity) Thought Process & Associations: Loose associations Thought Content: Other Delusion Type: None Suicidal Ideation: No Suicidal Plan: No Suicidal Intention: No Homicidal Ideation: No Homicidal Plan: No Homicidal Intention: No Insight: Poor Judgment: Poor Results Labs Test 05/27/17 14:59 Prothrombin Time 14.3 SEC Prothromb Time International Ratio 1.4 RATIO Vitals/IOs Vital Signs Date Time Temp Pulse Resp B/P (MAP) Pulse Ox O2 Delivery O2 Flow Rate FiO2 05/27/17 09:10 79 16 127/63 (84) 98 05/26/17 23:30 98.4 Assessment & Plan Problem List: (1) ALZHEIMER'S DISEASE WITH LATE ONSET ICD Codes: G30.1 - ALZHEIMER'S DISEASE WITH LATE ONSET (2) DEMENTIA IN OTH DISEASES CLASSD ELSWHR W BEHAVIORAL DISTURB ICD Codes: F02.81 - DEMENTIA IN OTH DISEASES CLASSD ELSWHR W BEHAVIORAL DISTURB Assessment & Plan Continue current treatment plan Justification for Cont. Inpt. Patient will decompensate in a less restrictive setting Request HC Surrog/Guard Advoc?: Yes Panchito Hannon DO May 27, 2017 16:12
[2017-05-27 18:19] VITALS: BP 112/64; PULSE 80; RESP 16; TEMP 98; O2SAT 99
[2017-05-27] MEDS: DONEPEZIL HCL 5 MG TAB PO SCH (21:00)
[2017-05-27] MEDS: LATANOPROST 0.005% OPHT SOLN 2.5 ML BTL EACH EYE SCH (22:04)
[2017-05-27] MEDS: hydrOXYzine HCL 50 MG TAB PO PRN (22:04)
[2017-05-28 06:16] VITALS: BP 126/60; PULSE 65; RESP 16; TEMP 97.5; O2SAT 97
[2017-05-28] MEDS: DORZOLAMIDE 2% OPTH SOLN 200 DROP/10 ML BTLO EACH EYE SCH ×2 (09:01→21:10)
[2017-05-28] MEDS: CYANOCOBALAMIN 1,000 MCG TAB PO SCH (09:02)
[2017-05-28] MEDS: DIGOXIN 0.125 MG TAB PO SCH (09:02)
[2017-05-28] MEDS: METOPROLOL TARTRATE 50 MG TAB PO SCH (09:03)
[2017-05-28] MEDS: MULTIVITAMIN-OPHTHALMIC 1 TAB PO SCH (09:03)
[2017-05-28] MEDS: MULTIVITAMIN TAB PO SCH (09:03)
[2017-05-28] MEDS: CALCIUM/VITAMIN D 250 MG/125 U TAB PO SCH ×2 (09:03→21:00)
[2017-05-28] MEDS: CHOLECALCIFEROL (VIT D3) 5000 UNIT CAP PO SCH (09:03)
[2017-05-28] MEDS: FERROUS SULFATE 325 MG (65 MG ELEMENTAL IRON) TAB PO SCH ×2 (09:03→21:09)
[2017-05-28] MEDS: ASPIRIN EC 81 MG TABEC PO SCH (09:04)
[2017-05-28 11:15] LABS: HEMATOCRIT 27.8 % (35.0-46.0); HEMOGLOBIN 8.9 GM/DL (11.6-15.3); MEAN CELL VOLUME 80.4 FL (80.0-100.0); MEAN CORPUSCULAR HEMOGLOBIN 25.7 PG (27.0-34.0); MEAN PLATELET VOLUME 8.6 FL (7.0-11.0); PLATELET COUNT 234 TH/MM3 (150-450); RED BLOOD COUNT 3.46 MIL/MM3 (4.00-5.30); WHITE BLOOD COUNT 4.5 TH/MM3 (4.0-11.0)
[2017-05-28 11:21] LABS: INTERNATIONAL NORMALIZED RATIO 1.3 RATIO
[2017-05-28 11:44] LABS: BICARBONATE 28.1 MEQ/L (21.0-32.0); CALCIUM 8.9 MG/DL (8.5-10.1); CREATININE 0.93 MG/DL (0.50-1.00)
[2017-05-28] MEDS: QUEtiapine FUMARATE 25 MG TAB PO SCH ×3 (12:34→22:42)
--- NOTE | 2017-05-28 14:19 | HHI.PR ---
Subjective Remarks Follow-up visit Alzheimer's disease, A. fib, PPM, HTN. Patient seen and examined today sitting in a chair. Reports she is okay. Patient is confused but able to follow commands and pleasant. Denies pain and discomfort. Denies SOB/ dyspnea. Denies chest pain, palpitations, headaches, dizziness. Denies fevers, chills, n/v/d. Objective Vitals Vital Signs Date Time Temp Pulse Resp B/P (MAP) Pulse Ox O2 Delivery O2 Flow Rate FiO2 05/28/17 06:16 97.5 65 16 126/60 (82) 97 05/27/17 18:19 98.0 80 16 112/64 (80) 99 I/O 05/27/17 05/27/17 05/27/17 05/28/17 05/28/17 05/28/17 07:00 15:00 23:00 07:00 15:00 23:00 Intake Total 960 ml 480 ml Balance 960 ml 480 ml Intake Oral 960 ml 480 ml # Voids 1 1 Result Diagram: 05/28/17 1040 05/28/17 1033 Objective Remarks GENERAL: This is a well-nourished, in no apparent distress. Appears anxious. SKIN: Cool and dry. HEAD: Normocephalic. EYES: Pupils equal round and reactive. Extraocular motions intact. No scleral icterus. No injection or drainage. ENT: Nose without bleeding. Throat without erythema. Uvula midline. Airway patent. NECK: Trachea midline. CARDIOVASCULAR: Regular rate and rhythm without murmurs, gallops, or rubs. RESPIRATORY: Clear to auscultation. Breath sounds equal bilaterally. No wheezes , rales, or rhonchi. GASTROINTESTINAL: Abdomen soft, nondistended. No guarding. Also is active 4. Nontender. MUSCULOSKELETAL: Extremities without clubbing, cyanosis, or edema. NEUROLOGICAL: Awake and alert. Confuse. Motor and sensory grossly within normal limits. Normal speech. A/P Problem List: (1) Alzheimer disease ICD Code: G30.9 - Alzheimer's disease, unspecified; F02.80 - Dementia in other diseases classified elsewhere without behavioral disturbance (2) Atrial fibrillation, controlled ICD Code: I48.91 - Atrial fibrillation, controlled Status: Acute (3) Dementia ICD Code: F03.90 - Dementia Status: Acute (4) HTN (hypertension) ICD Code: I10 - Essential (primary) hypertension Assessment and Plan Patient is an 86-year-old female who came in from [facility] with primary medical history of Alzheimer's disease, A. kamran, PPM, HTN who came into the ED secondary to Alzheimer's outbursts. Dementia with behavioral disturbances Alzheimer's disease - Managed by psychiatry team Uzair andrew, chronic HTN, uncontrolled - Continue metoprolol 50 mg daily, digoxin 0.125 mg - Patient has been refusing medication possibly cause of uncontrolled blood pressure. - Monitor BP trend - TSH within normal - INR subtherapeutic. H&H stable. - Coumadin 5 mg. - Monitor INR Anemia possibly of chronic disease - H&H 8.7/27.7 - Reviewed previous H&H, near her baseline 8.1-10 - Iron supplements Vitamin D insufficiency - Vitamin D supplementation. Repeat vitamin D levels in 3 months and outpatient. DVT prop ambulatory Becky Escamilla May 28, 2017 14:19
--- NOTE | 2017-05-28 15:37 | HHI.PYPN ---
Subjective Chief Complaint: patient demented with aggressive behavior at [facility] Remarks Patient seen in day room with nurse Branden nurse practitioner Marge and medical student Eusebio chart review, patient compliant medication. Patient calm cooperative feeling better today, denying suicidality. Still remains somewhat confused and demented. For now continue treatment Review of Systems Except as stated in HPI: all other systems reviewed are Neg Mental Status Examination Appearance: Appropriate (in hospital gown) Consciousness: Alert Orientation: Person Motor Activity: Normal gait (slight shuffling) Speech: Unremarkable Language: Adequate Fund of Knowledge: Inadequate Attention and Concentration: Easily Distracted Memory: Impaired Mood: Anxious Affect: Other (good range and intensity) Thought Process & Associations: Loose associations Thought Content: Other Delusion Type: None Suicidal Ideation: No Suicidal Plan: No Suicidal Intention: No Homicidal Ideation: No Homicidal Plan: No Homicidal Intention: No Insight: Poor Judgment: Poor Results Labs Test 05/28/17 10:33 05/28/17 10:40 Blood Urea Nitrogen 22 MG/DL Creatinine 0.93 MG/DL Random Glucose 82 MG/DL Calcium Level 8.9 MG/DL Sodium Level 140 MEQ/L Potassium Level 3.5 MEQ/L Chloride Level 104 MEQ/L Carbon Dioxide Level 28.1 MEQ/L Anion Gap 8 MEQ/L Estimat Glomerular Filtration Rate 57 ML/MIN White Blood Count 4.5 TH/MM3 Red Blood Count 3.46 MIL/MM3 Hemoglobin 8.9 GM/DL Hematocrit 27.8 % Mean Corpuscular Volume 80.4 FL Mean Corpuscular Hemoglobin 25.7 PG Mean Corpuscular Hemoglobin Concent 32.0 % Red Cell Distribution Width 21.0 % Platelet Count 234 TH/MM3 Mean Platelet Volume 8.6 FL Prothrombin Time 13.0 SEC Prothromb Time International Ratio 1.3 RATIO Vitals/IOs Vital Signs Date Time Temp Pulse Resp B/P (MAP) Pulse Ox O2 Delivery O2 Flow Rate FiO2 05/28/17 06:16 97.5 65 16 126/60 (82) 97 Intake and Output 05/28/17 05/28/17 05/29/17 08:00 16:00 00:00 Intake Total 480 ml Balance 480 ml Assessment & Plan Problem List: (1) ALZHEIMER'S DISEASE WITH LATE ONSET ICD Codes: G30.1 - ALZHEIMER'S DISEASE WITH LATE ONSET (2) DEMENTIA IN OTH DISEASES CLASSD ELSWHR W BEHAVIORAL DISTURB ICD Codes: F02.81 - DEMENTIA IN OTH DISEASES CLASSD ELSWHR W BEHAVIORAL DISTURB Assessment & Plan Estimated LOS: days patient continues demented and confused, though no significant behavioral problems. Compliant medication Justification for Cont. Inpt. At this time patient will decompensate if placed in a lower level of care Discharge Planning Patient still needs to be determined Request HC Surrog/Guard Advoc?: Yes Eduardo Mills MD May 28, 2017 15:37
[2017-05-28] MEDS: WARFARIN SOD 5 MG TAB PO SCH (16:19)
[2017-05-28 18:09] VITALS: BP 114/66; PULSE 84; RESP 16; TEMP 97.8; O2SAT 100
[2017-05-28] MEDS: ACETAMINOPHEN 325 MG TAB PO PRN (18:41)
[2017-05-28] MEDS: DONEPEZIL HCL 5 MG TAB PO SCH (21:00)
[2017-05-28] MEDS: hydrOXYzine HCL 50 MG TAB PO PRN (21:09)
[2017-05-28] MEDS: LATANOPROST 0.005% OPHT SOLN 2.5 ML BTL EACH EYE SCH (21:10)
[2017-05-29] MEDS: CHOLECALCIFEROL (VIT D3) 5000 UNIT CAP PO SCH (09:00)
[2017-05-29] MEDS: FERROUS SULFATE 325 MG (65 MG ELEMENTAL IRON) TAB PO SCH ×2 (09:00→21:00)
[2017-05-29] MEDS: MULTIVITAMIN-OPHTHALMIC 1 TAB PO SCH (09:00)
[2017-05-29] MEDS: CYANOCOBALAMIN 1,000 MCG TAB PO SCH (09:13)
[2017-05-29] MEDS: METOPROLOL TARTRATE 50 MG TAB PO SCH (09:13)
[2017-05-29] MEDS: CALCIUM/VITAMIN D 250 MG/125 U TAB PO SCH ×2 (09:13→21:00)
[2017-05-29] MEDS: MULTIVITAMIN TAB PO SCH (09:13)
[2017-05-29] MEDS: ASPIRIN EC 81 MG TABEC PO SCH (09:13)
[2017-05-29] MEDS: DIGOXIN 0.125 MG TAB PO SCH (09:13)
[2017-05-29] MEDS: DORZOLAMIDE 2% OPTH SOLN 200 DROP/10 ML BTLO EACH EYE SCH ×2 (09:15→21:00)
--- NOTE | 2017-05-29 11:00 | HHI.PR ---
Subjective Remarks Follow up for dementia, hypertension, anemia, subtherapeutic INR. The patient is seen in the dayroom. She has no medical complaints. She states she feels "just fine". Denies any fevers/chills, headache, chest pain, shortness of breath , abdominal or urinary complaints. Vital signs reviewed and stable. Objective Vitals Vital Signs Date Time Temp Pulse Resp B/P (MAP) Pulse Ox O2 Delivery O2 Flow Rate FiO2 05/28/17 18:09 97.8 84 16 114/66 (82) 100 I/O 05/28/17 05/28/17 05/28/17 05/29/17 05/29/17 05/29/17 07:00 15:00 23:00 07:00 15:00 23:00 Intake Total 480 ml 0 ml 120 ml 120 ml Balance 480 ml 0 ml 120 ml 120 ml Intake Oral 480 ml 0 ml 120 ml 120 ml # Voids 1 2 1 Result Diagram: 05/28/17 1040 05/28/17 1033 Objective Remarks GENERAL: Well-nourished, well-developed elderly female patient in [facility]. SKIN: Warm and dry. No rash. HEENT: Normocephalic. Atraumatic. Pupils equal and round. Mucous membranes pink and moist. NECK: Supple. Trachea midline. CARDIOVASCULAR: Regular rate and rhythm. S1, S2 noted. No murmur appreciated. RESPIRATORY: No accessory muscle use. Clear to auscultation. Breath sounds equal bilaterally. GASTROINTESTINAL: Abdomen soft, non-tender, nondistended. Normoactive bowel sounds x4. MUSCULOSKELETAL: No obvious deformities. Extremities without clubbing, cyanosis , or edema. NEUROLOGICAL: Awake and alert. No obvious cranial nerve deficits. Motor grossly within normal limits. Normal speech. Medications and IVs Current Medications Medications (Trade) Dose Ordered Sig/Cj Route Start Time Stop Time Status Last Admin (Tylenol) 650 mg Q4H PRN PO 05/24/17 21:00 05/28/17 18:41 (Milk Of Magnesia Liq) 30 ml DAILY PRN PO 05/24/17 21:00 (Mag-Al Plus Susp Liq) 30 ml Q6H PRN PO 05/24/17 21:00 (Ecotrin Ec) 81 mg DAILY PO 05/25/17 09:00 05/29/17 09:13 (Lanoxin) 0.125 mg DAILY PO 05/25/17 09:00 05/29/17 09:13 (Trusopt 2% Opth Soln) 1 drop BID EACH EYE 05/24/17 21:00 05/29/17 09:15 (Xalatan 0.005% Opth Soln) 1 drop HS EACH EYE 05/24/17 21:00 05/28/17 21:10 (Lopressor) 50 mg DAILY PO 05/25/17 09:00 05/29/17 09:13 (Oscal-D 250-125) 500 mg BID PO 05/24/17 21:00 05/29/17 09:13 (Atarax) 50 mg Q6H PRN PO 05/25/17 12:00 05/28/17 21:09 (Vitamin B12) 1,000 mcg DAILY PO 05/26/17 09:00 05/29/17 09:13 (Aricept) 10 mg HS PO 05/25/17 21:00 05/28/17 21:00 (Ferrous Sulfate) 324 mg BID PO 05/25/17 21:00 05/29/17 09:00 (Theragran) 1 tab DAILY PO 05/26/17 09:00 05/29/17 09:13 (Ocuvite) 1 tab DAILY PO 05/26/17 09:00 05/29/17 09:00 (SEROquel) 50 mg DAILY@1200,1700,2200 PO 05/25/17 12:00 05/29/17 12:47 (Vitamin D3) 5,000 units DAILY PO 05/27/17 09:00 05/29/17 09:00 (Coumadin) 5 mg DAILY@1600 PO 05/27/17 16:00 05/28/17 16:19 Pharmacy Profile Note 0 ml @ 0 mls/hr UNSCH OTHER 05/28/17 07:45 (Coumadin) 1 mg ONCE ONCE PO 05/29/17 16:00 05/29/17 16:01 A/P Problem List: (1) Alzheimer disease ICD Code: G30.9 - Alzheimer's disease, unspecified; F02.80 - Dementia in other diseases classified elsewhere without behavioral disturbance (2) Atrial fibrillation, controlled ICD Code: I48.91 - Atrial fibrillation, controlled Status: Acute (3) Dementia ICD Code: F03.90 - Dementia Status: Acute (4) HTN (hypertension) ICD Code: I10 - Essential (primary) hypertension Assessment and Plan 86-year-old female who came in from [facility] elderly home with primary medical history of Alzheimer's disease, A. fib, PPM, HTN who came into the ED secondary to Alzheimer's outbursts. Alzheimer's Dementia with behavioral disturbances -Continue management per psychiatry A. fib with subtherapeutic INR -Continue patient's metoprolol and digoxin for rate control -INR subtherapeutic at 1.3 -Continue coumadin with pharmacy consult to manage dosing -Goal INR 2-3 Hypertension: much better controlled -Continue patient's metoprolol -BP much improved, stable Anemia: suspect chronic. No reported signs of blood loss. -Hgb 8.7 --> 8.9 -Reviewed previous H&H, near her baseline 8.1-10 -Continue ferrous sulfate 324mg bid Vitamin D Deficiency: Vit D 16 -Continue cholecalciferol. -Repeat vitamin D levels in 3 months as outpatient. DVT prophylaxis: Ambulation Discharge Planning The patient is medically stable at this time, will sign off. Please contact [facility] or reconsult as needed. Pharmacy to follow Coumadin dosing and INR. Dorcas Piña PA-C May 29, 2017 11:00 am
[2017-05-29] MEDS: QUEtiapine FUMARATE 25 MG TAB PO SCH ×3 (12:47→22:00)
[2017-05-29] MEDS ORDERED: HALOPERIDOL LACTATE 5 MG/ML AMP IM STA (15:46)
[2017-05-29] MEDS ORDERED: diphenhydrAMINE HCL 50 MG/ML VIAL IM STA (15:46)
--- NOTE | 2017-05-29 15:53 | HHI.PYPN ---
Subjective Chief Complaint: patient demented with aggressive behavior at intermediate Remarks Patient seen on unit. It appears patient experiencing significant sundowning behaviors she is quite angry intrusive assaultive, quite profane she has a "truckers tong" her behavior is to the point ordered ETO of Haldol 2 mg, Benadryl 25 mg IM to be given Review of Systems Except as stated in HPI: all other systems reviewed are Neg Mental Status Examination Appearance: Appropriate (in hospital gown) Consciousness: Alert Orientation: Person Motor Activity: Normal gait (slight shuffling) Speech: Unremarkable Language: Adequate Fund of Knowledge: Inadequate Attention and Concentration: Easily Distracted Memory: Impaired Mood: Anxious Affect: Other (good range and intensity) Thought Process & Associations: Loose associations Thought Content: Other Delusion Type: None Suicidal Ideation: No Suicidal Plan: No Suicidal Intention: No Homicidal Ideation: No Homicidal Plan: No Homicidal Intention: No Insight: Poor Judgment: Poor Results Vitals/IOs Vital Signs Date Time Temp Pulse Resp B/P (MAP) Pulse Ox O2 Delivery O2 Flow Rate FiO2 05/28/17 18:09 97.8 84 16 114/66 (82) 100 Intake and Output 05/29/17 05/29/17 05/30/17 08:00 16:00 00:00 Intake Total 240 ml Balance 240 ml Assessment & Plan Problem List: (1) ALZHEIMER'S DISEASE WITH LATE ONSET ICD Codes: G30.1 - ALZHEIMER'S DISEASE WITH LATE ONSET (2) DEMENTIA IN OTH DISEASES CLASSD ELSWHR W BEHAVIORAL DISTURB ICD Codes: F02.81 - DEMENTIA IN OTH DISEASES CLASSD ELSWHR W BEHAVIORAL DISTURB Assessment & Plan Estimated LOS: days patient showing significant sundowning at this time she is out of control loud angry irritable intrusive demanding paranoid needing an ETO Justification for Cont. Inpt. At this time patient decompensated placed a lower level of care Discharge Planning Unknown at this time Request HC Surrog/Guard Advoc?: Yes Eduardo Mills MD May 29, 2017 15:53
[2017-05-29] MEDS ORDERED: WARFARIN SOD 1 MG TAB PO ONE (16:00)
[2017-05-29] MEDS: WARFARIN SOD 5 MG TAB PO SCH ×2 (16:00→18:16)
[2017-05-29] MEDS: ACETAMINOPHEN 325 MG TAB PO PRN (18:16)
[2017-05-29 18:44] VITALS: PULSE 73; RESP 20; TEMP 97.8; O2SAT 96
[2017-05-29] MEDS: DONEPEZIL HCL 5 MG TAB PO SCH (21:00)
[2017-05-29] MEDS: LATANOPROST 0.005% OPHT SOLN 2.5 ML BTL EACH EYE SCH (21:00)
[2017-05-30] MEDS ORDERED: HALOPERIDOL LACTATE 5 MG/ML AMP ONE (03:41)
[2017-05-30] MEDS ORDERED: diphenhydrAMINE HCL 50 MG/ML VIAL ONE (03:42)
[2017-05-30] MEDS ORDERED: HALOPERIDOL LACTATE 5 MG/ML AMP IM ONE (04:00)
[2017-05-30] MEDS ORDERED: diphenhydrAMINE HCL 50 MG/ML VIAL IM ONE (04:00)
[2017-05-30] MEDS: CHOLECALCIFEROL (VIT D3) 5000 UNIT CAP PO SCH (09:00)
[2017-05-30] MEDS: MULTIVITAMIN-OPHTHALMIC 1 TAB PO SCH (09:00)
[2017-05-30] MEDS: MULTIVITAMIN TAB PO SCH (09:00)
[2017-05-30] MEDS: FERROUS SULFATE 325 MG (65 MG ELEMENTAL IRON) TAB PO SCH ×2 (09:00→21:22)
[2017-05-30] MEDS: DIGOXIN 0.125 MG TAB PO SCH (09:00)
[2017-05-30] MEDS: CYANOCOBALAMIN 1,000 MCG TAB PO SCH (09:00)
[2017-05-30] MEDS: METOPROLOL SUCCINATE 50 MG EXTENDED RELEASE TAB PO SCH (09:00)
[2017-05-30] MEDS: ASPIRIN EC 81 MG TABEC PO SCH (09:00)
[2017-05-30] MEDS: CALCIUM/VITAMIN D 250 MG/125 U TAB PO SCH ×2 (09:00→21:22)
[2017-05-30] MEDS: DORZOLAMIDE 2% OPTH SOLN 200 DROP/10 ML BTLO EACH EYE SCH ×2 (09:00→20:35)
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
[2017-05-30] MEDS: QUEtiapine FUMARATE 25 MG TAB PO SCH ×3 (12:00→21:22)
--- NOTE | 2017-05-30 14:49 | HHI.PYPN ---
Subjective Chief Complaint: patient [facility]ed [facility] Remarks Patient has been somewhat reluctantly compliant with the initiation of her Seroquel treatment. For now continue treatment Patient seen in day room with nurse practitioner Marge, and nurse Michelle, patient needed a repeat ETO around 3:00 this morning because of [id number] behavior intrusiveness profanity and aggressive behavior. Review of Systems Except as stated in HPI: all other systems reviewed are Neg Mental Status Examination Appearance: Appropriate (in hospital gown) Consciousness: Alert Orientation: Person Motor Activity: Normal gait (slight shuffling) Speech: Unremarkable Language: Adequate Fund of Knowledge: Inadequate Attention and Concentration: Easily Distracted Memory: Impaired Mood: Anxious Affect: Other (good range and intensity) Thought Process & Associations: Loose associations Thought Content: Other Delusion Type: None Suicidal Ideation: No Suicidal Plan: No Suicidal Intention: No Homicidal Ideation: No Homicidal Plan: No Homicidal Intention: No Insight: Poor Judgment: Poor Results Vitals/IOs Vital Signs Date Time Temp Pulse Resp B/P (MAP) Pulse Ox O2 Delivery O2 Flow Rate FiO2 05/29/17 18:44 97.8 73 20 96 05/28/17 18:09 114/66 (82) Assessment & Plan Problem List: (1) ALZHEIMER'S DISEASE WITH LATE ONSET ICD Codes: G30.1 - ALZHEIMER'S DISEASE WITH LATE ONSET (2) DEMENTIA IN OTH DISEASES CLASSD ELSWHR W BEHAVIORAL DISTURB ICD Codes: F02.81 - DEMENTIA IN OTH DISEASES CLASSD ELSWHR W BEHAVIORAL DISTURB Assessment & Plan Estimated LOS: days patient continues demented confused quite labile irritable profane and intrusive. For now continue medication no change Justification for Cont. Inpt. At this time patient will decompensate or placement lower level of care Discharge Planning Placement may become problematic due to patient's behavior Request HC Surrog/Guard Advoc?: Yes Eduardo Mills MD May 30, 2017 14:49
[2017-05-30 17:09] VITALS: BP 140/85; PULSE 76; RESP 16; TEMP 97.8; O2SAT 99
[2017-05-30] MEDS: LATANOPROST 0.005% OPHT SOLN 2.5 ML BTL EACH EYE SCH (20:35)
[2017-05-30] MEDS: DONEPEZIL HCL 5 MG TAB PO SCH (21:00)
[2017-05-30] MEDS: hydrOXYzine HCL 50 MG TAB PO PRN (21:22)
[2017-05-31 05:42] VITALS: BP 128/63; PULSE 85; RESP 18; TEMP 97.4; O2SAT 98
[2017-05-31 07:06] LABS: INTERNATIONAL NORMALIZED RATIO 1.8 RATIO; PROTHROMBIN TIME - PATIENT 18.7 SEC (9.8-11.6)
[2017-05-31] MEDS: METOPROLOL SUCCINATE 50 MG EXTENDED RELEASE TAB PO SCH (09:00)
[2017-05-31] MEDS: ASPIRIN EC 81 MG TABEC PO SCH (09:00)
[2017-05-31] MEDS: CALCIUM/VITAMIN D 250 MG/125 U TAB PO SCH ×2 (09:00→21:17)
[2017-05-31] MEDS: FERROUS SULFATE 325 MG (65 MG ELEMENTAL IRON) TAB PO SCH ×2 (09:00→21:17)
[2017-05-31] MEDS: CHOLECALCIFEROL (VIT D3) 5000 UNIT CAP PO SCH (09:00)
[2017-05-31] MEDS: MULTIVITAMIN TAB PO SCH (09:00)
[2017-05-31] MEDS: MULTIVITAMIN-OPHTHALMIC 1 TAB PO SCH (09:00)
[2017-05-31] MEDS: CYANOCOBALAMIN 1,000 MCG TAB PO SCH (09:00)
[2017-05-31] MEDS: DORZOLAMIDE 2% OPTH SOLN 200 DROP/10 ML BTLO EACH EYE SCH ×2 (09:00→21:16)
[2017-05-31] MEDS: DIGOXIN 0.125 MG TAB PO SCH (09:00)
[2017-05-31] MEDS: QUEtiapine FUMARATE 25 MG TAB PO SCH ×3 (11:27→21:17)
--- NOTE | 2017-05-31 12:57 | HHI.PYPN ---
Subjective Chief Complaint: patient demented with aggressive behavior at shelter Remarks Patient seen in [place] patient case continued patient retained by Ep Specialist Seth. Guardian advocate appointed. Patient also seen on unit, patient alert diffusely confused. Also somewhat feisty patient is markedly calmer less suspicious and vigilant with no profanity noted recently her behaviors markedly improved. Review of Systems Except as stated in HPI: all other systems reviewed are Neg Mental Status Examination Appearance: Appropriate (in hospital gown) Consciousness: Alert Orientation: Person Motor Activity: Normal gait (slight shuffling) Speech: Unremarkable Language: Adequate Fund of Knowledge: Inadequate Attention and Concentration: Easily Distracted Memory: Impaired Mood: Anxious Affect: Other (good range and intensity) Thought Process & Associations: Loose associations Thought Content: Other Delusion Type: None Suicidal Ideation: No Suicidal Plan: No Suicidal Intention: No Homicidal Ideation: No Homicidal Plan: No Homicidal Intention: No Insight: Poor Judgment: Poor Results Labs Test 05/31/17 05:25 Prothrombin Time 18.7 SEC Prothromb Time International Ratio 1.8 RATIO Vitals/IOs Vital Signs Date Time Temp Pulse Resp B/P (MAP) Pulse Ox O2 Delivery O2 Flow Rate FiO2 05/31/17 05:42 97.4 85 18 128/63 (84) 98 Intake and Output 05/31/17 05/31/17 06/01/17 08:00 16:00 00:00 Intake Total 120 ml 240 ml Balance 120 ml 240 ml Assessment & Plan Problem List: (1) ALZHEIMER'S DISEASE WITH LATE ONSET ICD Codes: G30.1 - ALZHEIMER'S DISEASE WITH LATE ONSET (2) DEMENTIA IN OTH DISEASES CLASSD ELSWHR W BEHAVIORAL DISTURB ICD Codes: F02.81 - DEMENTIA IN OTH DISEASES CLASSD ELSWHR W BEHAVIORAL DISTURB Assessment & Plan Estimated LOS: days patient continues diffusely confused disoriented demented, though behaviors have remarkably improved, and the profanity has stopped. Patient patient continues in [place] today Justification for Cont. Inpt. At this time patient will decompensate placed on lower level of care Discharge Planning Placement may become problematic Request HC Surrog/Guard Advoc?: Yes Eduardo Mills MD May 31, 2017 12:57
[2017-05-31] MEDS: WARFARIN SOD 5 MG TAB PO SCH (16:00)
[2017-05-31 17:51] VITALS: BP 129/85; PULSE 83; RESP 17; TEMP 97.9; O2SAT 99
[2017-05-31] MEDS: LATANOPROST 0.005% OPHT SOLN 2.5 ML BTL EACH EYE SCH (21:16)
[2017-05-31] MEDS: DONEPEZIL HCL 5 MG TAB PO SCH (21:17)
[2017-05-31] MEDS: ACETAMINOPHEN 325 MG TAB PO PRN (21:17)
[2017-06-01 05:00] VITALS: BP 144/74; PULSE 75; RESP 16; TEMP 98.6; O2SAT 94
[2017-06-01] MEDS: CHOLECALCIFEROL (VIT D3) 5000 UNIT CAP PO SCH (09:00)
[2017-06-01] MEDS: CYANOCOBALAMIN 1,000 MCG TAB PO SCH (09:00)
[2017-06-01] MEDS: FERROUS SULFATE 325 MG (65 MG ELEMENTAL IRON) TAB PO SCH ×2 (09:00→22:02)
[2017-06-01] MEDS: DIGOXIN 0.125 MG TAB PO SCH (09:00)
[2017-06-01] MEDS: CALCIUM/VITAMIN D 250 MG/125 U TAB PO SCH ×2 (09:00→22:02)
[2017-06-01] MEDS: ASPIRIN EC 81 MG TABEC PO SCH (09:00)
[2017-06-01] MEDS: METOPROLOL SUCCINATE 50 MG EXTENDED RELEASE TAB PO SCH (09:00)
[2017-06-01] MEDS: MULTIVITAMIN TAB PO SCH (09:00)
[2017-06-01] MEDS: MULTIVITAMIN-OPHTHALMIC 1 TAB PO SCH (09:00)
[2017-06-01] MEDS: DORZOLAMIDE 2% OPTH SOLN 200 DROP/10 ML BTLO EACH EYE SCH ×2 (09:00→22:03)
[2017-06-01] MEDS: QUEtiapine FUMARATE 25 MG TAB PO SCH ×3 (12:00→22:03)
--- NOTE | 2017-06-01 13:10 | HHI.PYPN ---
Subjective Chief Complaint: patient demented with aggressive behavior at detention Remarks Patient seen in day room with nurse Ciro and medical student I'll, chart reviewed, today patient showing some mild increased irritability and exits seeking, will not profusely profane today there is some occasional cuss words coming out Review of Systems Except as stated in HPI: all other systems reviewed are Neg Mental Status Examination Appearance: Appropriate (in hospital gown) Consciousness: Alert Orientation: Person Motor Activity: Normal gait (slight shuffling) Speech: Unremarkable Language: Adequate Fund of Knowledge: Inadequate Attention and Concentration: Easily Distracted Memory: Impaired Mood: Anxious Affect: Other (good range and intensity) Thought Process & Associations: Loose associations Thought Content: Other Delusion Type: None Suicidal Ideation: No Suicidal Plan: No Suicidal Intention: No Homicidal Ideation: No Homicidal Plan: No Homicidal Intention: No Insight: Poor Judgment: Poor Results Vitals/IOs Vital Signs Date Time Temp Pulse Resp B/P (MAP) Pulse Ox O2 Delivery O2 Flow Rate FiO2 06/01/17 05:00 98.6 75 16 144/74 (97) 94 Intake and Output 06/01/17 06/01/17 06/02/17 08:00 16:00 00:00 Intake Total 120 ml 0 ml Balance 120 ml 0 ml Assessment & Plan Problem List: (1) ALZHEIMER'S DISEASE WITH LATE ONSET ICD Codes: G30.1 - ALZHEIMER'S DISEASE WITH LATE ONSET (2) DEMENTIA IN OTH DISEASES CLASSD ELSWHR W BEHAVIORAL DISTURB ICD Codes: F02.81 - DEMENTIA IN OTH DISEASES CLASSD ELSWHR W BEHAVIORAL DISTURB Assessment & Plan Estimated LOS: days patient continues confused demented disoriented, though behaviors are slightly improved. For now continue treatment Justification for Cont. Inpt. At this time patient will decompensate of placed on a lower level of care Discharge Planning With needs to be determined Request HC Surrog/Guard Advoc?: Yes Eduardo Mills MD Jun 01, 2017 13:10
[2017-06-01] MEDS: WARFARIN SOD 5 MG TAB PO SCH (16:00)
[2017-06-01 19:50] VITALS: BP 113/55; PULSE 78
[2017-06-01] MEDS: DONEPEZIL HCL 5 MG TAB PO SCH (22:00)
[2017-06-01] MEDS: LATANOPROST 0.005% OPHT SOLN 2.5 ML BTL EACH EYE SCH (22:03)
[2017-06-02] MEDS: FERROUS SULFATE 325 MG (65 MG ELEMENTAL IRON) TAB PO SCH ×2 (09:00→20:51)
[2017-06-02] MEDS: DIGOXIN 0.125 MG TAB PO SCH (09:00)
[2017-06-02] MEDS: CALCIUM/VITAMIN D 250 MG/125 U TAB PO SCH ×2 (09:00→21:00)
[2017-06-02] MEDS: MULTIVITAMIN TAB PO SCH (09:00)
[2017-06-02] MEDS: MULTIVITAMIN-OPHTHALMIC 1 TAB PO SCH (09:00)
[2017-06-02] MEDS: CHOLECALCIFEROL (VIT D3) 5000 UNIT CAP PO SCH (09:00)
[2017-06-02] MEDS: DORZOLAMIDE 2% OPTH SOLN 200 DROP/10 ML BTLO EACH EYE SCH ×2 (09:00→22:56)
[2017-06-02] MEDS: ASPIRIN EC 81 MG TABEC PO SCH (09:00)
[2017-06-02] MEDS: CYANOCOBALAMIN 1,000 MCG TAB PO SCH (09:00)
[2017-06-02] MEDS: METOPROLOL SUCCINATE 50 MG EXTENDED RELEASE TAB PO SCH (09:00)
[2017-06-02] MEDS: QUEtiapine FUMARATE 25 MG TAB PO SCH ×4 (11:52→22:56)
--- NOTE | 2017-06-02 14:14 | HHI.PYPN ---
Subjective Chief Complaint: patient demented with aggressive behavior at assisted Remarks Pt seen and discussed with staff. She is oriented X1 and confused. She refused afternoon quetiapine today and cursed RN when attempted to cajole. Staff report that she has been vacillating between periods of agitation and pleasant behavior today. Mental Status Examination Appearance: Appropriate (in hospital gown) Consciousness: Alert Orientation: Person Motor Activity: Normal gait (slight shuffling) Speech: Unremarkable Language: Adequate Fund of Knowledge: Inadequate Attention and Concentration: Easily Distracted Memory: Impaired Mood: Anxious, Irritable Affect: Labile Thought Process & Associations: Loose associations Thought Content: Other Delusion Type: None Suicidal Ideation: No Suicidal Plan: No Suicidal Intention: No Homicidal Ideation: No Homicidal Plan: No Homicidal Intention: No Insight: Poor Judgment: Poor Results Vitals/IOs Vital Signs Date Time Temp Pulse Resp B/P (MAP) Pulse Ox O2 Delivery O2 Flow Rate FiO2 06/01/17 19:50 78 113/55 (74) 06/01/17 05:00 98.6 16 94 Intake and Output 06/02/17 06/02/17 06/03/17 08:00 16:00 00:00 Intake Total 0 ml 0 ml Balance 0 ml 0 ml Assessment & Plan Problem List: (1) ALZHEIMER'S DISEASE WITH LATE ONSET ICD Codes: G30.1 - ALZHEIMER'S DISEASE WITH LATE ONSET (2) DEMENTIA IN OTH DISEASES CLASSD ELSWHR W BEHAVIORAL DISTURB ICD Codes: F02.81 - DEMENTIA IN OTH DISEASES CLASSD ELSWHR W BEHAVIORAL DISTURB Assessment & Plan Continue current tx plan. Estimated LOS: days Justification for Cont. Inpt. risk of decompensation Request HC Surrog/Guard Advoc?: Yes Bhargavi Su MD Jun 02, 2017 14:14
--- NOTE | 2017-06-02 15:39 | HHI.PR ---
Subjective Remarks Follow up for subtherapeutic INR. The patient is seen sitting in chair in the hallways. She says she has a headache today, unable to further describe the headache. She says she has the headache because she's been sneezing a lot. Denies any fevers/chills, rhinitis, congestion, sore throat, chest pain, or shortness of breath. She states she is eating well. Denies any other medical complaints at this time. Objective Vitals Vital Signs Date Time Temp Pulse Resp B/P (MAP) Pulse Ox O2 Delivery O2 Flow Rate FiO2 06/01/17 19:50 78 113/55 (74) I/O 06/01/17 06/01/17 06/01/17 06/02/17 06/02/17 06/02/17 07:00 15:00 23:00 07:00 15:00 23:00 Intake Total 840 ml 0 ml 720 ml 0 ml 0 ml Balance 840 ml 0 ml 720 ml 0 ml 0 ml Intake Oral 840 ml 0 ml 720 ml 0 ml 0 ml # Voids 4 1 2 Objective Remarks GENERAL: Well-nourished, well-developed elderly female patient in [facility]. SKIN: Warm and dry. No rash. HEENT: Normocephalic. Atraumatic. Pupils equal and round. Mucous membranes pink and moist. NECK: Supple. Trachea midline. CARDIOVASCULAR: Regular rate and rhythm. S1, S2 noted. No murmur appreciated. RESPIRATORY: No accessory muscle use. Clear to auscultation. Breath sounds equal bilaterally. GASTROINTESTINAL: Abdomen soft, non-tender, nondistended. Normoactive bowel sounds x4. MUSCULOSKELETAL: No obvious deformities. Extremities without clubbing, cyanosis , or edema. NEUROLOGICAL: Awake and alert. No obvious cranial nerve deficits. Motor grossly within normal limits. Normal speech. Medications and IVs Current Medications Medications (Trade) Dose Ordered Sig/Cj Route Start Time Stop Time Status Last Admin (Tylenol) 650 mg Q4H PRN PO 05/24/17 21:00 05/31/17 21:17 (Milk Of Magnesia Liq) 30 ml DAILY PRN PO 05/24/17 21:00 (Mag-Al Plus Susp Liq) 30 ml Q6H PRN PO 05/24/17 21:00 (Ecotrin Ec) 81 mg DAILY PO 05/25/17 09:00 06/02/17 09:00 (Lanoxin) 0.125 mg DAILY PO 05/25/17 09:00 06/02/17 09:00 (Trusopt 2% Opth Soln) 1 drop BID EACH EYE 05/24/17 21:00 06/01/17 22:03 (Xalatan 0.005% Opth Soln) 1 drop HS EACH EYE 05/24/17 21:00 06/01/17 22:03 (Oscal-D 250-125) 500 mg BID PO 05/24/17 21:00 06/02/17 09:00 (Atarax) 50 mg Q6H PRN PO 05/25/17 12:00 05/30/17 21:22 (Vitamin B12) 1,000 mcg DAILY PO 05/26/17 09:00 06/02/17 09:00 (Aricept) 10 mg HS PO 05/25/17 21:00 06/01/17 22:00 (Ferrous Sulfate) 324 mg BID PO 05/25/17 21:00 06/02/17 09:00 (Theragran) 1 tab DAILY PO 05/26/17 09:00 06/02/17 09:00 (Ocuvite) 1 tab DAILY PO 05/26/17 09:00 06/02/17 09:00 (SEROquel) 50 mg DAILY@1200,1700,2200 PO 05/25/17 12:00 06/01/17 22:03 (Vitamin D3) 5,000 units DAILY PO 05/27/17 09:00 06/02/17 09:00 (Coumadin) 5 mg DAILY@1600 PO 05/27/17 16:00 06/01/17 16:00 Pharmacy Profile Note 0 ml @ 0 mls/hr UNSCH OTHER 05/28/17 07:45 (Toprol Xl) 50 mg DAILY PO 05/30/17 09:00 06/02/17 09:00 A/P Problem List: (1) Alzheimer disease ICD Code: G30.9 - Alzheimer's disease, unspecified; F02.80 - Dementia in other diseases classified elsewhere without behavioral disturbance (2) Atrial fibrillation, controlled ICD Code: I48.91 - Atrial fibrillation, controlled Status: Acute (3) Dementia ICD Code: F03.90 - Dementia Status: Acute (4) HTN (hypertension) ICD Code: I10 - Essential (primary) hypertension Assessment and Plan 86-year-old female who came in from [facility] elderly home with primary medical history of Alzheimer's disease, A. fib, PPM, HTN who came into the ED secondary to Alzheimer's outbursts. Alzheimer's Dementia with behavioral disturbances -Continue management per psychiatry A. fib with subtherapeutic INR -Continue patient's metoprolol and digoxin for rate control -INR subtherapeutic at 1.3 -Continue coumadin with pharmacy consult to manage dosing -Goal INR 2-3 -06/02 hospitalists reconsulted due to no PT/INR x2days on a patient with subtherapeutic INR. Labs were already ordered for every day on this patient however have been cancelled by the lab the past 2 days; discussed with lab who states PT/INR need to be "timed" not "routine" and that is why they were canceled. Labs have been reordered. Pharmacy will continue to follow up on INR and dosing of Coumadin. Will continue to follow until INR therapeutic. Hypertension: much better controlled -Continue patient's metoprolol -BP much improved, stable Anemia: suspect chronic. No reported signs of blood loss. -Hgb 8.7 --> 8.9 -Reviewed previous H&H, near her baseline 8.1-10 -Continue ferrous sulfate 324mg bid Vitamin D Deficiency: Vit D 16 -Continue cholecalciferol. -Repeat vitamin D levels in 3 months as outpatient. Headache: mild -continue tylenol prn DVT prophylaxis: Ambulation Dorcas Piña PA-C Jun 02, 2017 15:39
[2017-06-02] MEDS: WARFARIN SOD 5 MG TAB PO SCH (16:00)
[2017-06-02 16:14] LABS: INTERNATIONAL NORMALIZED RATIO 2.1 RATIO; PROTHROMBIN TIME - PATIENT 20.9 SEC (9.8-11.6)
[2017-06-02 18:21] VITALS: BP 118/58; PULSE 60; RESP 16; TEMP 97.7; O2SAT 100
[2017-06-02] MEDS: DONEPEZIL HCL 5 MG TAB PO SCH (20:51)
[2017-06-02] MEDS: hydrOXYzine HCL 50 MG TAB PO PRN (22:56)
[2017-06-02] MEDS: LATANOPROST 0.005% OPHT SOLN 2.5 ML BTL EACH EYE SCH (22:57)
[2017-06-03 06:26] VITALS: BP 140/72; PULSE 71; RESP 16; TEMP 98.3; O2SAT 99
[2017-06-03] MEDS: ASPIRIN EC 81 MG TABEC PO SCH (08:40)
[2017-06-03] MEDS: DIGOXIN 0.125 MG TAB PO SCH (08:41)
[2017-06-03] MEDS: MULTIVITAMIN-OPHTHALMIC 1 TAB PO SCH (08:41)
[2017-06-03] MEDS: FERROUS SULFATE 325 MG (65 MG ELEMENTAL IRON) TAB PO SCH ×2 (08:41→21:48)
[2017-06-03] MEDS: CYANOCOBALAMIN 1,000 MCG TAB PO SCH (08:42)
[2017-06-03] MEDS: CALCIUM/VITAMIN D 250 MG/125 U TAB PO SCH ×2 (08:42→21:48)
[2017-06-03] MEDS: METOPROLOL SUCCINATE 50 MG EXTENDED RELEASE TAB PO SCH (08:42)
[2017-06-03] MEDS: MULTIVITAMIN TAB PO SCH (08:42)
[2017-06-03] MEDS: DORZOLAMIDE 2% OPTH SOLN 200 DROP/10 ML BTLO EACH EYE SCH ×2 (08:42→21:47)
[2017-06-03] MEDS: CHOLECALCIFEROL (VIT D3) 5000 UNIT CAP PO SCH (08:42)
[2017-06-03] MEDS: QUEtiapine FUMARATE 25 MG TAB PO SCH ×3 (11:49→21:48)
--- NOTE | 2017-06-03 14:45 | HHI.PYPN ---
Subjective Chief Complaint: patient [facility] Remarks Pt seen and discussed with staff. Pt has been compliant and cooperative with care. Less labile and taking redirection better. She states that MD and RN are her " beautiful daddies". Mental Status Examination Appearance: Appropriate (in hospital gown) Consciousness: Alert Orientation: Person Motor Activity: Normal gait (slight shuffling) Speech: Unremarkable Language: Adequate Fund of Knowledge: Inadequate Attention and Concentration: Easily Distracted Memory: Impaired Mood: Other (labile) Affect: Labile Thought Process & Associations: Loose associations Thought Content: Other Delusion Type: None Suicidal Ideation: No Suicidal Plan: No Suicidal Intention: No Homicidal Ideation: No Homicidal Plan: No Homicidal Intention: No Insight: Poor Judgment: Poor Results Labs Test 06/02/17 15:15 Prothrombin Time 20.9 SEC Prothromb Time International Ratio 2.1 RATIO Vitals/IOs Vital Signs Date Time Temp Pulse Resp B/P (MAP) Pulse Ox O2 Delivery O2 Flow Rate FiO2 06/03/17 06:26 98.3 71 16 140/72 (94) 99 Intake and Output 06/03/17 06/03/17 06/04/17 08:00 16:00 00:00 Intake Total 0 ml Balance 0 ml Assessment & Plan Problem List: (1) ALZHEIMER'S DISEASE WITH LATE ONSET ICD Codes: G30.1 - ALZHEIMER'S DISEASE WITH LATE ONSET (2) DEMENTIA IN OTH DISEASES CLASSD ELSWHR W BEHAVIORAL DISTURB ICD Codes: F02.81 - DEMENTIA IN OTH DISEASES CLASSD ELSWHR W BEHAVIORAL DISTURB Assessment & Plan Pt improving. Continue current txplan Estimated LOS: days Justification for Cont. Inpt. monitoring for safety Request HC Surrog/Guard Advoc?: Yes Bhargavi Su MD Jun 03, 2017 14:45
[2017-06-03] MEDS: WARFARIN SOD 5 MG TAB PO SCH (16:00)
--- NOTE | 2017-06-03 16:10 | HHI.PR ---
Subjective Remarks Follow up for subtherapeutic INR on Coumadin. INR yesterday 2.1, now therapeutic. However once again, lab has not drawn this morning's PT/INR despite it being timed for 6am and it is now 3pm. The patient is seen ambulating the hallways without any medical complaints today. Denies any headache. She says she is eating well. Last BM this morning. Vital signs reviewed and stable. Objective Vitals Vital Signs Date Time Temp Pulse Resp B/P (MAP) Pulse Ox O2 Delivery O2 Flow Rate FiO2 06/03/17 06:26 98.3 71 16 140/72 (94) 99 06/02/17 18:21 97.7 60 16 118/58 (78) 100 I/O 06/02/17 06/02/17 06/02/17 06/03/17 06/03/17 06/03/17 07:00 15:00 23:00 07:00 15:00 23:00 Intake Total 0 ml 0 ml 480 ml 0 ml Balance 0 ml 0 ml 480 ml 0 ml Intake Oral 0 ml 0 ml 480 ml 0 ml # Voids 2 2 3 Objective Remarks GENERAL: Well-nourished, well-developed elderly female patient in [facility]. SKIN: Warm and dry. No rash. HEENT: Normocephalic. Atraumatic. Pupils equal and round. Mucous membranes pink and moist. CARDIOVASCULAR: Regular rate and rhythm. S1, S2 noted. No murmur appreciated. RESPIRATORY: No accessory muscle use. Clear to auscultation. Breath sounds equal bilaterally. GASTROINTESTINAL: Abdomen soft, non-tender, nondistended. Normoactive bowel sounds x4. MUSCULOSKELETAL: No obvious deformities. Extremities without clubbing, cyanosis , or edema. NEUROLOGICAL: Awake and alert. No obvious cranial nerve deficits. Motor grossly within normal limits. Normal speech. Medications and IVs Current Medications Medications (Trade) Dose Ordered Sig/Cj Route Start Time Stop Time Status Last Admin (Tylenol) 650 mg Q4H PRN PO 05/24/17 21:00 05/31/17 21:17 (Milk Of Magnesia Liq) 30 ml DAILY PRN PO 05/24/17 21:00 (Mag-Al Plus Susp Liq) 30 ml Q6H PRN PO 05/24/17 21:00 (Ecotrin Ec) 81 mg DAILY PO 05/25/17 09:00 06/03/17 08:40 (Lanoxin) 0.125 mg DAILY PO 05/25/17 09:00 06/03/17 08:41 (Trusopt 2% Opth Soln) 1 drop BID EACH EYE 05/24/17 21:00 06/03/17 08:42 (Xalatan 0.005% Opth Soln) 1 drop HS EACH EYE 05/24/17 21:00 06/02/17 22:57 (Oscal-D 250-125) 500 mg BID PO 05/24/17 21:00 06/03/17 08:42 (Atarax) 50 mg Q6H PRN PO 05/25/17 12:00 06/02/17 22:56 (Vitamin B12) 1,000 mcg DAILY PO 05/26/17 09:00 06/03/17 08:42 (Aricept) 10 mg HS PO 05/25/17 21:00 06/02/17 20:51 (Ferrous Sulfate) 324 mg BID PO 05/25/17 21:00 06/03/17 08:41 (Theragran) 1 tab DAILY PO 05/26/17 09:00 06/03/17 08:42 (Ocuvite) 1 tab DAILY PO 05/26/17 09:00 06/03/17 08:41 (SEROquel) 50 mg DAILY@1200,1700,2200 PO 05/25/17 12:00 06/03/17 11:49 (Vitamin D3) 5,000 units DAILY PO 05/27/17 09:00 06/03/17 08:42 (Coumadin) 5 mg DAILY@1600 PO 05/27/17 16:00 06/02/17 16:00 Pharmacy Profile Note 0 ml @ 0 mls/hr UNSCH OTHER 05/28/17 07:45 (Toprol Xl) 50 mg DAILY PO 05/30/17 09:00 06/03/17 08:42 A/P Problem List: (1) Alzheimer disease ICD Code: G30.9 - Alzheimer's disease, unspecified; F02.80 - Dementia in other diseases classified elsewhere without behavioral disturbance (2) Atrial fibrillation, controlled ICD Code: I48.91 - Atrial fibrillation, controlled Status: Acute (3) Dementia ICD Code: F03.90 - Dementia Status: Acute (4) HTN (hypertension) ICD Code: I10 - Essential (primary) hypertension Assessment and Plan 86-year-old female who came in from [facility] elderly home with primary medical history of Alzheimer's disease, A. fib, PPM, HTN who came into the ED secondary to Alzheimer's outbursts. Alzheimer's Dementia with behavioral disturbances -Continue management per psychiatry A. fib with subtherapeutic INR -Continue patient's metoprolol and digoxin for rate control -INR subtherapeutic at 1.3 -Continue coumadin with pharmacy consult to manage dosing -Goal INR 2-3 -06/02 hospitalists reconsulted due to no PT/INR x2days on a patient with subtherapeutic INR. Labs were already ordered for every day on this patient however have been cancelled by the lab the past 2 days; discussed with lab who states PT/INR need to be "timed" not "routine" and that is why they were canceled. Labs have been reordered. Pharmacy will continue to follow up on INR and dosing of Coumadin. Will continue to follow until INR therapeutic. -06/03 INR from yesterday therapeutic at 2.1. Once again, PT/INR still not collected by lab and it is now 3pm. This is not an acute active medical issue. Labs need to be checked every day while in hospital and levels/dosing followed by pharmacy. Hypertension: much better controlled -Continue patient's metoprolol -BP much improved, stable Anemia: suspect chronic. No reported signs of blood loss. -Hgb 8.7 --> 8.9 -Reviewed previous H&H, near her baseline 8.1-10 -Continue ferrous sulfate 324mg bid Vitamin D Deficiency: Vit D 16 -Continue cholecalciferol. -Repeat vitamin D levels in 3 months as outpatient. Headache: mild -continue tylenol prn -headache resolved DVT prophylaxis: Ambulation Dorcas Piña PA-C Jun 03, 2017 4:10 pm
[2017-06-03] MEDS: DONEPEZIL HCL 5 MG TAB PO SCH (21:00)
[2017-06-03] MEDS: LATANOPROST 0.005% OPHT SOLN 2.5 ML BTL EACH EYE SCH (21:00)
[2017-06-04 05:38] VITALS: BP 126/82; PULSE 66; RESP 17; TEMP 97.5; O2SAT 98
[2017-06-04] MEDS: MULTIVITAMIN TAB PO SCH (08:54)
[2017-06-04] MEDS: DIGOXIN 0.125 MG TAB PO SCH (08:54)
[2017-06-04] MEDS: METOPROLOL SUCCINATE 50 MG EXTENDED RELEASE TAB PO SCH (08:54)
[2017-06-04] MEDS: FERROUS SULFATE 325 MG (65 MG ELEMENTAL IRON) TAB PO SCH ×2 (08:54→21:00)
[2017-06-04] MEDS: ASPIRIN EC 81 MG TABEC PO SCH (08:54)
[2017-06-04] MEDS: hydrOXYzine HCL 50 MG TAB PO PRN ×2 (08:54→12:00)
[2017-06-04] MEDS: CALCIUM/VITAMIN D 250 MG/125 U TAB PO SCH ×2 (09:00→21:00)
[2017-06-04] MEDS: DORZOLAMIDE 2% OPTH SOLN 200 DROP/10 ML BTLO EACH EYE SCH ×2 (09:00→21:00)
[2017-06-04] MEDS: CYANOCOBALAMIN 1,000 MCG TAB PO SCH (09:00)
[2017-06-04] MEDS: CHOLECALCIFEROL (VIT D3) 5000 UNIT CAP PO SCH (09:00)
[2017-06-04] MEDS: MULTIVITAMIN-OPHTHALMIC 1 TAB PO SCH (09:00)
[2017-06-04] MEDS: QUEtiapine FUMARATE 25 MG TAB PO SCH ×3 (12:00→21:27)
[2017-06-04] MEDS ORDERED: diphenhydrAMINE HCL 50 MG/ML VIAL ONE (13:46)
[2017-06-04] MEDS ORDERED: HALOPERIDOL LACTATE 5 MG/ML AMP ONE (13:46)
[2017-06-04] MEDS ORDERED: LORazepam 2 MG/ML VIAL ONE (13:47)
--- NOTE | 2017-06-04 14:12 | HHI.PR ---
Subjective Remarks Follow up for afib anticoagulated on Coumadin. The patient refused PT/INR yesterday and again this morning, discussed with lab and RN. Discussed with the patient today, she states "no, not today" when asked if she will let us take labs. She reports a mild headache today, asking for tylenol. She is tolerating oral intake. Vital signs reviewed and stable. She has no other medical complaints at this time. Objective Vitals Vital Signs Date Time Temp Pulse Resp B/P (MAP) Pulse Ox O2 Delivery O2 Flow Rate FiO2 06/04/17 05:38 97.5 66 17 126/82 (97) 98 I/O 06/03/17 06/03/17 06/03/17 06/04/17 06/04/17 06/04/17 07:00 15:00 23:00 07:00 15:00 23:00 Intake Total 0 ml 480 ml 0 ml 360 ml Balance 0 ml 480 ml 0 ml 360 ml Intake Oral 0 ml 480 ml 0 ml 360 ml # Voids 3 2 Objective Remarks GENERAL: Well-nourished, well-developed elderly female patient in [facility]. SKIN: Warm and dry. No rash. HEENT: Normocephalic. Atraumatic. Pupils equal and round. Mucous membranes pink and moist. CARDIOVASCULAR: Regular rate and rhythm. S1, S2 noted. No murmur appreciated. RESPIRATORY: No accessory muscle use. Clear to auscultation. Breath sounds equal bilaterally. GASTROINTESTINAL: Abdomen soft, non-tender, nondistended. Normoactive bowel sounds x4. MUSCULOSKELETAL: No obvious deformities. Extremities without clubbing, cyanosis , or edema. NEUROLOGICAL: Awake and alert. No obvious cranial nerve deficits. Motor grossly within normal limits. Normal speech. Medications and IVs Current Medications Medications (Trade) Dose Ordered Sig/Cj Route Start Time Stop Time Status Last Admin (Tylenol) 650 mg Q4H PRN PO 05/24/17 21:00 05/31/17 21:17 (Milk Of Magnesia Liq) 30 ml DAILY PRN PO 05/24/17 21:00 (Mag-Al Plus Susp Liq) 30 ml Q6H PRN PO 05/24/17 21:00 (Ecotrin Ec) 81 mg DAILY PO 05/25/17 09:00 06/04/17 08:54 (Lanoxin) 0.125 mg DAILY PO 05/25/17 09:00 06/04/17 08:54 (Trusopt 2% Opth Soln) 1 drop BID EACH EYE 05/24/17 21:00 06/03/17 21:47 (Xalatan 0.005% Opth Soln) 1 drop HS EACH EYE 05/24/17 21:00 06/03/17 21:00 (Oscal-D 250-125) 500 mg BID PO 05/24/17 21:00 06/03/17 21:48 (Atarax) 50 mg Q6H PRN PO 05/25/17 12:00 06/04/17 12:00 (Vitamin B12) 1,000 mcg DAILY PO 05/26/17 09:00 06/03/17 08:42 (Aricept) 10 mg HS PO 05/25/17 21:00 06/03/17 21:00 (Ferrous Sulfate) 324 mg BID PO 05/25/17 21:00 06/04/17 08:54 (Theragran) 1 tab DAILY PO 05/26/17 09:00 06/04/17 08:54 (Ocuvite) 1 tab DAILY PO 05/26/17 09:00 06/03/17 08:41 (SEROquel) 50 mg DAILY@1200,1700,2200 PO 05/25/17 12:00 06/04/17 12:00 (Vitamin D3) 5,000 units DAILY PO 05/27/17 09:00 06/03/17 08:42 (Coumadin) 5 mg DAILY@1600 PO 05/27/17 16:00 06/03/17 16:00 Pharmacy Profile Note 0 ml @ 0 mls/hr UNSCH OTHER 05/28/17 07:45 (Toprol Xl) 50 mg DAILY PO 05/30/17 09:00 06/04/17 08:54 A/P Problem List: (1) Alzheimer disease ICD Code: G30.9 - Alzheimer's disease, unspecified; F02.80 - Dementia in other diseases classified elsewhere without behavioral disturbance (2) Atrial fibrillation, controlled ICD Code: I48.91 - Atrial fibrillation, controlled Status: Acute (3) Dementia ICD Code: F03.90 - Dementia Status: Acute (4) HTN (hypertension) ICD Code: I10 - Essential (primary) hypertension Assessment and Plan 86-year-old female who came in from [facility] with primary medical history of Alzheimer's disease, A. fib, PPM, HTN who came into the ED secondary to Alzheimer's outbursts. Alzheimer's Dementia with behavioral disturbances -Continue management per psychiatry A. fib with subtherapeutic INR -Continue patient's metoprolol and digoxin for rate control -INR subtherapeutic at 1.3 -Continue coumadin with pharmacy consult to manage dosing -Goal INR 2-3 -06/02 hospitalists reconsulted due to no PT/INR x2days on a patient with subtherapeutic INR. Labs were already ordered for every day on this patient however have been cancelled by the lab the past 2 days; discussed with lab who states PT/INR need to be "timed" not "routine" and that is why they were canceled. Labs have been reordered. Pharmacy will continue to follow up on INR and dosing of Coumadin. Will continue to follow until INR therapeutic. -06/03 INR from yesterday therapeutic at 2.1. Once again, PT/INR still not collected by lab and it is now 3pm. -06/04 Patient refused labs today, confirmed by RN. Discussed with Dr. Samuels , patient would likely do better on Eliquis which does not require frequent monitoring. In order to switch from Coumadin to Eliquis, INR should be less than 2.0. Will stop Coumadin today. Hopefully we can obtain an INR within 1-2 days and start on Eliquis. If patient still refusing labs over the next 1-2 days , Dr. Samuels recommends starting Eliquis regardless. Hypertension: much better controlled -Continue patient's metoprolol -BP much improved, stable Anemia: suspect chronic. No reported signs of blood loss. -Hgb 8.7 --> 8.9 -Reviewed previous H&H, near her baseline 8.1-10 -Continue ferrous sulfate 324mg bid Vitamin D Deficiency: Vit D 16 -Continue cholecalciferol. -Repeat vitamin D levels in 3 months as outpatient. Headache: mild -continue tylenol prn DVT prophylaxis: Ambulation Dorcas Piña PA-C Jun 04, 2017 2:12 pm
[2017-06-04] MEDS ORDERED: LORazepam 2 MG/ML VIAL IM STA (14:34)
[2017-06-04] MEDS ORDERED: diphenhydrAMINE HCL 50 MG/ML VIAL IM STA (14:34)
[2017-06-04] MEDS ORDERED: HALOPERIDOL LACTATE 5 MG/ML AMP IM STA (14:34)
--- NOTE | 2017-06-04 14:47 | HHI.PYPN ---
Subjective Chief Complaint: patient demented with aggressive behavior at senior living Remarks Patient seen in day room with medical student Eusebio and nurse Ciro, prior to me approaching patient patient is noted to be markedly aroused angry irritable intrusive quite profane, impulsive support was attempting to scratch and bite staff. This necessitated need teal of Haldol 2 mg, Ativan 1 mg, Benadryl 25 mg , IM. Will increase scheduled Seroquel 50 mg 4 times a day Review of Systems Except as stated in HPI: all other systems reviewed are Neg Mental Status Examination Appearance: Appropriate (in hospital gown) Consciousness: Alert Orientation: Person Motor Activity: Normal gait (slight shuffling) Speech: Unremarkable Language: Adequate Fund of Knowledge: Inadequate Attention and Concentration: Easily Distracted Memory: Impaired Mood: Other (labile) Affect: Labile Thought Process & Associations: Loose associations Thought Content: Other Delusion Type: None Suicidal Ideation: No Suicidal Plan: No Suicidal Intention: No Homicidal Ideation: No Homicidal Plan: No Homicidal Intention: No Insight: Poor Judgment: Poor Results Vitals/IOs Vital Signs Date Time Temp Pulse Resp B/P (MAP) Pulse Ox O2 Delivery O2 Flow Rate FiO2 06/04/17 05:38 97.5 66 17 126/82 (97) 98 Intake and Output 06/04/17 06/04/17 06/05/17 08:00 16:00 00:00 Intake Total 360 ml Balance 360 ml Assessment & Plan Problem List: (1) ALZHEIMER'S DISEASE WITH LATE ONSET ICD Codes: G30.1 - ALZHEIMER'S DISEASE WITH LATE ONSET (2) DEMENTIA IN OTH DISEASES CLASSD ELSWHR W BEHAVIORAL DISTURB ICD Codes: F02.81 - DEMENTIA IN OTH DISEASES CLASSD ELSWHR W BEHAVIORAL DISTURB Assessment & Plan Estimated LOS: days patient continues diffusely confused disoriented markedly intrusive violent and profane. This is stated ETO today, will increase Seroquel as mentioned above Justification for Cont. Inpt. But this time patient decompensated placed in a lower level of care Discharge Planning To be determined Request HC Surrog/Guard Advoc?: Yes Eduardo Mills MD Jun 04, 2017 14:47
[2017-06-04 18:21] VITALS: BP 118/76; PULSE 74; RESP 16; TEMP 97.6; O2SAT 100
[2017-06-04 20:30] VITALS: BP 147/80; PULSE 85; RESP 16; O2SAT 99
[2017-06-04] MEDS: DONEPEZIL HCL 5 MG TAB PO SCH (21:00)
[2017-06-04] MEDS: LATANOPROST 0.005% OPHT SOLN 2.5 ML BTL EACH EYE SCH (21:00)
--- NOTE | 2017-06-04 22:35 | RADRPT ---
EXAM DATE/TIME: 06/04/2017 22:04 [facility] COMPARISON: CT BRAIN W/O CONTRAST, November 20, 2016, 16:21. INDICATIONS : Trauma; fall. RADIATION DOSE: 56.35 CTDIvol (mGy) MEDICAL HISTORY : Non-responsive. SURGICAL HISTORY : Non-responsive. ENCOUNTER: Initial ACUITY: 1 day PAIN SCALE: Non-responsive LOCATION: cranial TECHNIQUE: Multiple contiguous axial images were obtained of the head. Using automated exposure control and adj ustment of the mA and/or kV according to patient size, radiation dose was kept as low as reasonably a chievable to obtain optimal diagnostic quality images. DICOM format image data is available electro nically for review and comparison. FINDINGS: CEREBRUM: The ventricles are normal for age. No evidence of midline shift, mass lesion, hemorrhage or acute in farction. No extra-axial fluid collections are seen. POSTERIOR FOSSA: The cerebellum and brainstem are intact. The 4th ventricle is midline. The cerebellopontine angle i s unremarkable. EXTRACRANIAL: The visualized portion of the orbits is intact. SKULL: The calvaria is intact. No evidence of skull fracture. CONCLUSION: 1. No acute intracranial abnormalities.No significant change has occurred. Khris Recinos MD on June 04, 2017 at 22:32 Board Certified Radiologist. This report was verified electronically.
--- NOTE | 2017-06-04 22:37 | RADRPT ---
EXAM DATE/TIME: 06/04/2017 22:10 [facility] COMPARISON: No previous studies available for comparison. INDICATIONS : Trauma; fall. RADIATION DOSE: 36.66 CTDIvol (mGy) MEDICAL HISTORY : Non-responsive. SURGICAL HISTORY : Non-responsive. ENCOUNTER: Initial ACUITY: 1 day PAIN SCORE: Non-responsive LOCATION: facial TECHNIQUE: Volumetric scanning of the facial bones was performed. Using automated exposure control and adjustme nt of the mA and/or kV according to patient size, radiation dose was kept as low as reasonably achiev able to obtain optimal diagnostic quality images. DICOM format image data is available electronicCardMunch y for review and comparison. FINDINGS: ORBITS: The orbital and infraorbital osseous structures are intact. The retroconal structures have a normal configuration. No radiopaque foreign bodies are seen. NASAL BONE: The nasal bone and maxillary spine are intact ZYGOMATIC ARCHES: Symmetric without evidence of fracture. SINUSES: The maxillary, ethmoid and frontal sinuses are intact. No air-fluid levels seen. NASAL CAVITY: The nasal septum is intact and midline. The lacrimal ducts are intact. SOFT TISSUES: No radiopaque foreign bodies seen. No soft-tissue swelling is seen. INTRACRANIAL: No intracranial air seen. CRIBIFORM PLATE: Grossly intact. CONCLUSION: 1. No acute findings. Khris Recinos MD on June 04, 2017 at 22:32 Board Certified Radiologist. This report was verified electronically.
[2017-06-05 05:00] VITALS: BP 113/59; PULSE 72; RESP 16; TEMP 97.4; O2SAT 97
[2017-06-05 06:17] VITALS: BP 113/59; PULSE 72; RESP 16; TEMP 97.4; O2SAT 97
[2017-06-05] MEDS: DIGOXIN 0.125 MG TAB PO SCH (08:51)
[2017-06-05] MEDS: CHOLECALCIFEROL (VIT D3) 5000 UNIT CAP PO SCH (08:51)
[2017-06-05] MEDS: DORZOLAMIDE 2% OPTH SOLN 200 DROP/10 ML BTLO EACH EYE SCH ×2 (08:51→21:00)
[2017-06-05] MEDS: MULTIVITAMIN TAB PO SCH (08:51)
[2017-06-05] MEDS: QUEtiapine FUMARATE 25 MG TAB PO SCH ×4 (08:51→21:28)
[2017-06-05] MEDS: CALCIUM/VITAMIN D 250 MG/125 U TAB PO SCH ×2 (08:51→21:32)
[2017-06-05] MEDS: ASPIRIN EC 81 MG TABEC PO SCH (08:51)
[2017-06-05] MEDS: APIXABAN 2.5 MG TABLET PO SCH (08:53)
[2017-06-05] MEDS: FERROUS SULFATE 325 MG (65 MG ELEMENTAL IRON) TAB PO SCH ×2 (08:58→21:00)
[2017-06-05] MEDS: MULTIVITAMIN-OPHTHALMIC 1 TAB PO SCH (08:58)
[2017-06-05] MEDS: CYANOCOBALAMIN 1,000 MCG TAB PO SCH (08:59)
[2017-06-05] MEDS: METOPROLOL SUCCINATE 50 MG EXTENDED RELEASE TAB PO SCH (08:59)
--- NOTE | 2017-06-05 13:59 | HHI.PYPN ---
Subjective Chief Complaint: patient demented with aggressive behavior at snf Remarks Patient seen in [place] with floor staff, patient initially irritable feisty and profane. Though she is taking the medications. Chart review. Patient is compliant with medication. She continues to show increased behavioral issues towards sleep afternoon and the evening for now continue treatment Review of Systems Except as stated in HPI: all other systems reviewed are Neg Mental Status Examination Appearance: Appropriate (in hospital gown) Consciousness: Alert Orientation: Person Motor Activity: Normal gait (slight shuffling) Speech: Unremarkable Language: Adequate Fund of Knowledge: Inadequate Attention and Concentration: Easily Distracted Memory: Impaired Mood: Other (labile) Affect: Labile Thought Process & Associations: Loose associations Thought Content: Other Delusion Type: None Suicidal Ideation: No Suicidal Plan: No Suicidal Intention: No Homicidal Ideation: No Homicidal Plan: No Homicidal Intention: No Insight: Poor Judgment: Poor Results Vitals/IOs Vital Signs Date Time Temp Pulse Resp B/P (MAP) Pulse Ox O2 Delivery O2 Flow Rate FiO2 06/05/17 06:17 97.4 72 16 113/59 (77) 97 Intake and Output 06/05/17 06/05/17 06/06/17 08:00 16:00 00:00 Intake Total 480 ml 240 ml Balance 480 ml 240 ml Assessment & Plan Problem List: (1) ALZHEIMER'S DISEASE WITH LATE ONSET ICD Codes: G30.1 - ALZHEIMER'S DISEASE WITH LATE ONSET (2) DEMENTIA IN OTH DISEASES CLASSD ELSWHR W BEHAVIORAL DISTURB ICD Codes: F02.81 - DEMENTIA IN OTH DISEASES CLASSD ELSWHR W BEHAVIORAL DISTURB Assessment & Plan Estimated LOS: days patient continues confused demented irritable labile and at times significantly profane for now continue treatment Justification for Cont. Inpt. At this time patient with decompensated placed in the lower level of care Discharge Planning Placement may be some problematic Request HC Surrog/Guard Advoc?: Yes Eduardo Mills MD Jun 05, 2017 13:59
--- NOTE | 2017-06-05 17:27 | HHI.PR ---
Subjective Remarks Follow up for afib anticoagulated on Coumadin. Patient seen and examined. Patient fell last night injuring her face, specifics of the fall are unclear. Patient states that she got scared. She has obvious bruising over the forehead , nose and upper lip. She denies any preceding symptoms such as chest pain, shortness of breath, dizziness, headache or vision changes. She denies any current medical complaints. Patient is a poor historian due to her dementia. Discussed with CLAUDIA Tanner who stated patient became very agitated and combative yesterday and was given Haldol and Ativan. Objective Vitals Vital Signs Date Time Temp Pulse Resp B/P (MAP) Pulse Ox O2 Delivery O2 Flow Rate FiO2 06/05/17 06:17 97.4 72 16 113/59 (77) 97 06/05/17 05:00 97.4 72 16 113/59 (77) 97 06/04/17 20:30 85 16 147/80 (102) 99 06/04/17 18:21 97.6 74 16 118/76 (90) 100 I/O 06/04/17 06/04/17 06/04/17 06/05/17 06/05/17 06/05/17 07:00 15:00 23:00 07:00 15:00 23:00 Intake Total 0 ml 360 ml 360 ml 360 ml Balance 0 ml 360 ml 360 ml 360 ml Intake Oral 0 ml 360 ml 360 ml 360 ml # Voids 2 2 Imaging Last Impressions Maxillofacial CT 06/04/177 Signed Impressions: Service Date/Time: Sunday, June 04, 2017 22:10 - CONCLUSION: 1. No acute findings. Khris Recinos MD Head CT 06/04/17 0000 Signed Impressions: Service Date/Time: Sunday, June 04, 2017 22:04 - CONCLUSION: 1. No acute intracranial abnormalities.No significant change has occurred. Khris Recinos MD Objective Remarks GENERAL: Well-nourished, well-developed elderly female patient in NAD. Awake and alert. Sitting in dayroom. SKIN: Warm and dry. Ecchymosis noted over right side of forehead, nose and bottom lip. (+)edematous nose and lip. HEAD: Normocephalic. Tender ecchymotic bump over right side of forehead. EYES: EOMI. No scleral icterus. No injection or drainage. ENT: No nasal bleeding or discharge. Mucous membranes pink and moist. NECK: Supple. Trachea midline. CARDIOVASCULAR: Irregular. S1, S2 noted. No murmur appreciated. RESPIRATORY: Nonlabored. Clear to auscultation. Breath sounds equal bilaterally. GASTROINTESTINAL: Abdomen soft, non-tender, nondistended. Normoactive bowel sounds x4. MUSCULOSKELETAL: No obvious deformities. Extremities without clubbing, cyanosis , or edema. NEUROLOGICAL: Awake and alert. No obvious cranial nerve deficits. Able to move all extremities spontaneously. No focal neurologic finding. Normal speech. Medications and IVs Current Medications Medications (Trade) Dose Ordered Sig/Cj Route Start Time Stop Time Status Last Admin (Tylenol) 650 mg Q4H PRN PO 05/24/17 21:00 05/31/17 21:17 (Milk Of Magnesia Liq) 30 ml DAILY PRN PO 05/24/17 21:00 (Mag-Al Plus Susp Liq) 30 ml Q6H PRN PO 05/24/17 21:00 (Ecotrin Ec) 81 mg DAILY PO 05/25/17 09:00 06/05/17 08:51 (Lanoxin) 0.125 mg DAILY PO 05/25/17 09:00 06/05/17 08:51 (Trusopt 2% Opth Soln) 1 drop BID EACH EYE 05/24/17 21:00 06/03/17 21:47 (Xalatan 0.005% Opth Soln) 1 drop HS EACH EYE 05/24/17 21:00 06/03/17 21:00 (Oscal-D 250-125) 500 mg BID PO 05/24/17 21:00 06/05/17 08:51 (Atarax) 50 mg Q6H PRN PO 05/25/17 12:00 06/04/17 12:00 (Vitamin B12) 1,000 mcg DAILY PO 05/26/17 09:00 06/03/17 08:42 (Aricept) 10 mg HS PO 05/25/17 21:00 06/03/17 21:00 (Ferrous Sulfate) 324 mg BID PO 05/25/17 21:00 06/05/17 08:58 (Theragran) 1 tab DAILY PO 05/26/17 09:00 06/05/17 08:51 (Ocuvite) 1 tab DAILY PO 05/26/17 09:00 06/03/17 08:41 (Vitamin D3) 5,000 units DAILY PO 05/27/17 09:00 06/05/17 08:51 (Toprol Xl) 50 mg DAILY PO 05/30/17 09:00 06/04/17 08:54 (Eliquis) 2.5 mg BID PO 06/05/17 09:00 06/05/17 08:53 (SEROquel) 50 mg QID PO 06/04/17 18:00 06/05/17 12:54 A/P Problem List: (1) Alzheimer disease ICD Code: G30.9 - Alzheimer's disease, unspecified; F02.80 - Dementia in other diseases classified elsewhere without behavioral disturbance (2) Atrial fibrillation, controlled ICD Code: I48.91 - Atrial fibrillation, controlled Status: Acute (3) Dementia ICD Code: F03.90 - Dementia Status: Acute (4) HTN (hypertension) ICD Code: I10 - Essential (primary) hypertension Assessment and Plan 86-year-old female who came in from [facility] with primary medical history of Alzheimer's disease, A. fib, PPM, HTN who came into the ED secondary to Alzheimer's outbursts. Alzheimer's Dementia with behavioral disturbances -Continue management per psychiatry s/p fall while on the unit, specifics unknown Closed head injury -CT head shows no acute intracranial process -Maxillofacial CT shows no evidence of fracture or dislocation -Possibly medication side effect as patient given Haldol and Ativan due to increased agitation and combativeness prior to fall -Obtain orthostatic BP measurement -2D echo and Carotid US ordered -obtain troponin level and EKG -CBC and CMP ordered -check digoxin level -PT eval/tx -fall precautions A. fib with subtherapeutic INR -Continue patient's metoprolol and digoxin for rate control -INR subtherapeutic. Goal INR 2-3. Patient refusing multiple blood draws needed to reassess INR level/Coumadin dosing. Coumadin discontinued. Patient started on Eliquis - first dose this morning. Given patient's recent fall last night while on the unit, will hold Eliquis for now. May not be a good choice for oral anticoagulation. -[id number] score 3, HAS-BLED score 2. Hypertension: much better controlled -Continue patient's metoprolol -BP much improved, stable Anemia: suspect chronic. No reported signs of blood loss. -Hgb 8.7 --> 8.9 -Reviewed previous H&H, near her baseline 8.1-10 -Continue ferrous sulfate 324mg bid Vitamin D Deficiency: Vit D 16 -Continue cholecalciferol. -Repeat vitamin D levels in 3 months as outpatient. DVT prophylaxis: Ambulation Yuridia Loyd Jun 05, 2017 17:27
--- NOTE | 2017-06-05 19:27 | RADRPT ---
EXAM DATE/TIME: 06/05/2017 18:17 [facility] COMPARISON: No previous studies available for comparison. INDICATIONS : Syncope. MEDICAL HISTORY : Congestive heart failure. Hypertension. Dementia. Afib. Anemia. Blood transfusions. SURGICAL HISTORY : Cholecystectomy. Hysterectomy. Appendectomy. Pacemaker. ENCOUNTER: Initial ACUITY: 1 day PAIN SCORE: 0/10 LOCATION: Bilateral neck PEAK SYSTOLIC VELOCITIES (cm/sec): ICA/CCA RATIO: Right: 0.9 Left: 2.0 ICA: Right: 105 Left: 132 CCA: Right: 123 Left: 65 ECA: Right: 94 Left: 97 VERTEBRAL: Right: 63 antegrade Left: 38 antegrade Elevated flow velocities and ICA/CCA ratios have been found to correlate with increased degrees of vessel stenosis, calculated as percentage of diameter relative to a normal segment of distal ICA/CCA FINDINGS: RIGHT CAROTID: No significant stenosis is visualized. The waveforms are within normal limits. LEFT CAROTID: No significant stenosis is visualized. The waveforms are within normal limits. VERTEBRAL ARTERIES: Antegrade flow is seen in both vertebral arteries. MISCELLANEOUS: None. CONCLUSION: 1. Mild visible plaque formation in the carotid arteries bilaterally without hemodynamically signific ant stenosis. Khris Recinos MD on June 05, 2017 at 19:19 Board Certified Radiologist. This report was verified electronically.
[2017-06-05] MEDS: LATANOPROST 0.005% OPHT SOLN 2.5 ML BTL EACH EYE SCH (21:00)
[2017-06-05] MEDS: DONEPEZIL HCL 5 MG TAB PO SCH (21:00)
[2017-06-05 22:21] LABS: AUTOMATED NEUTROPHIL # 2.8 TH/MM3 (1.8-7.7); BASOPHIL % 0.8 % (0.0-2.0); EOSINOPHIL % 1.2 % (0.0-4.0); HEMATOCRIT 27.3 % (35.0-46.0); HEMOGLOBIN 9.1 GM/DL (11.6-15.3); LYMPH % 17.5 % (9.0-44.0); LYMPHOCYTE # 0.7 TH/MM3 (1.0-4.8); MEAN CELL VOLUME 83.5 FL (80.0-100.0); MEAN CORPUSCULAR HGB CONC 33.6 % (32.0-36.0); MEAN PLATELET VOLUME 9.5 FL (7.0-11.0); MONO % 11.4 % (0.0-8.0); MONOCYTE # 0.5 TH/MM3 (0-0.9); NEUT % 69.1 % (16.0-70.0); PLATELET COUNT 203 TH/MM3 (150-450); RED BLOOD COUNT 3.26 MIL/MM3 (4.00-5.30); RED CELL DISTRIBUTION WIDTH 21.1 % (11.6-17.2); WHITE BLOOD COUNT 4.1 TH/MM3 (4.0-11.0)
[2017-06-05 23:01] LABS: OVALOCYTES 2+ (NORMAL)
[2017-06-06] VITALS (7 sets, daily range): BP systolic 109–149; BP diastolic 56–79; PULSE 65–89; RESP 16–20; TEMP 97.8–98.8; O2SAT 97–99
[2017-06-06 00:38] LABS: ALBUMIN 2.9 GM/DL (3.4-5.0); ALT (GPT) 20 U/L (10-53); AST (GOT) 47 U/L (15-37); BICARBONATE 29.2 MEQ/L (21.0-32.0); BLOOD UREA NITROGEN 20 MG/DL (7-18); CALCIUM 8.4 MG/DL (8.5-10.1); CHLORIDE 106 MEQ/L (98-107); CREATININE 0.86 MG/DL (0.50-1.00); GLOMERULAR FILTRATION RATE 63 ML/MIN (>89); GLUCOSE,RANDOM 117 MG/DL (74-106); MAGNESIUM 1.9 MG/DL (1.5-2.5); SODIUM (NA) 140 MEQ/L (136-145)
[2017-06-06 00:52] LABS: ALKALINE PHOSPHATASE 54 U/L (45-117); DIGOXIN 0.6 NG/ML (0.8-2.0); TOTAL BILIRUBIN ADULT 0.3 MG/DL (0.2-1.0); TOTAL PROTEIN 7.1 GM/DL (6.4-8.2); TROPONIN I LESS THAN 0.02 NG/ML (0.02-0.05)
[2017-06-06] MEDS: CYANOCOBALAMIN 1,000 MCG TAB PO SCH (07:54)
[2017-06-06] MEDS: MULTIVITAMIN-OPHTHALMIC 1 TAB PO SCH (07:54)
[2017-06-06] MEDS: MULTIVITAMIN TAB PO SCH (07:55)
[2017-06-06] MEDS: ASPIRIN EC 81 MG TABEC PO SCH (07:55)
[2017-06-06] MEDS: FERROUS SULFATE 325 MG (65 MG ELEMENTAL IRON) TAB PO SCH ×2 (07:55→20:49)
[2017-06-06] MEDS: CHOLECALCIFEROL (VIT D3) 5000 UNIT CAP PO SCH (07:55)
[2017-06-06] MEDS: QUEtiapine FUMARATE 25 MG TAB PO SCH ×4 (07:55→20:49)
[2017-06-06] MEDS: DIGOXIN 0.125 MG TAB PO SCH (07:56)
[2017-06-06] MEDS: CALCIUM/VITAMIN D 250 MG/125 U TAB PO SCH ×2 (07:56→20:49)
--- NOTE | 2017-06-06 11:05 | HHI.PYPN ---
Subjective Chief Complaint: patient demented with aggressive behavior at custodial Remarks Patient seen in dayroom with floor staff, patient chart review, patient compliant medication, patient continues to cycle from calm and somewhat drowsy to alert angry irritable aggressive hostile biting and kicking along with spurring like a painter and decorator. So far there is no change in behavior with the increase in Seroquel. Will monitor that for the 24 hours. If there is no change may consider alteration of the medication regimen Review of Systems Except as stated in HPI: all other systems reviewed are Neg Mental Status Examination Appearance: Appropriate (in hospital gown) Consciousness: Alert Orientation: Person Motor Activity: Normal gait (slight shuffling) Speech: Unremarkable Language: Adequate Fund of Knowledge: Inadequate Attention and Concentration: Easily Distracted Memory: Impaired Mood: Other (labile) Affect: Labile Thought Process & Associations: Loose associations Thought Content: Other Delusion Type: None Suicidal Ideation: No Suicidal Plan: No Suicidal Intention: No Homicidal Ideation: No Homicidal Plan: No Homicidal Intention: No Insight: Poor Judgment: Poor Results Labs Test 06/05/17 21:26 06/06/17 00:00 White Blood Count 4.1 TH/MM3 Red Blood Count 3.26 MIL/MM3 Hemoglobin 9.1 GM/DL Hematocrit 27.3 % Mean Corpuscular Volume 83.5 FL Mean Corpuscular Hemoglobin 28.0 PG Mean Corpuscular Hemoglobin Concent 33.6 % Red Cell Distribution Width 21.1 % Platelet Count 203 TH/MM3 Mean Platelet Volume 9.5 FL Neutrophils (%) (Auto) 69.1 % Lymphocytes (%) (Auto) 17.5 % Monocytes (%) (Auto) 11.4 % Eosinophils (%) (Auto) 1.2 % Basophils (%) (Auto) 0.8 % Neutrophils # (Auto) 2.8 TH/MM3 Lymphocytes # (Auto) 0.7 TH/MM3 Monocytes # (Auto) 0.5 TH/MM3 Eosinophils # (Auto) 0.0 TH/MM3 Basophils # (Auto) 0.0 TH/MM3 CBC Comment AUTO DIFF Differential Comment AUTO DIFF CONFIRMED Platelet Estimate NORMAL Platelet Morphology Comment NORMAL Ovalocytes 2+ Blood Urea Nitrogen 20 MG/DL Creatinine 0.86 MG/DL Random Glucose 117 MG/DL Total Protein 7.1 GM/DL Albumin 2.9 GM/DL Calcium Level 8.4 MG/DL Phosphorus Level 3.0 MG/DL Magnesium Level 1.9 MG/DL Alkaline Phosphatase 54 U/L Aspartate Amino Transf (AST/SGOT) 47 U/L Alanine Aminotransferase (ALT/SGPT) 20 U/L Total Bilirubin 0.3 MG/DL Sodium Level 140 MEQ/L Potassium Level 4.0 MEQ/L Chloride Level 106 MEQ/L Carbon Dioxide Level 29.2 MEQ/L Anion Gap 5 MEQ/L Estimat Glomerular Filtration Rate 63 ML/MIN Troponin I LESS THAN 0.02 NG/ML Digoxin Level 0.6 NG/ML Vitals/IOs Vital Signs Date Time Temp Pulse Resp B/P (MAP) Pulse Ox O2 Delivery O2 Flow Rate FiO2 06/06/17 05:42 98.7 81 18 149/79 (102) 98 Intake and Output 06/06/17 06/06/17 06/07/17 08:00 16:00 00:00 Intake Total 0 ml 360 ml Balance 0 ml 360 ml Assessment & Plan Problem List: (1) ALZHEIMER'S DISEASE WITH LATE ONSET ICD Codes: G30.1 - ALZHEIMER'S DISEASE WITH LATE ONSET (2) DEMENTIA IN OTH DISEASES CLASSD ELSWHR W BEHAVIORAL DISTURB ICD Codes: F02.81 - DEMENTIA IN OTH DISEASES CLASSD ELSWHR W BEHAVIORAL DISTURB Assessment & Plan Estimated LOS: days patient continues confused disoriented demented, with variations in behaviors to the point of aggressiveness and marked profanity. We 'll continue medication no change through today consider medication adjustments tomorrow if there is no improvement Justification for Cont. Inpt. At this time patient decompensated placed in a lower level of care Discharge Planning At this time it is problematic due to patient's behavior Request HC Surrog/Guard Advoc?: Yes Eduardo Mills MD Jun 06, 2017 11:05
--- NOTE | 2017-06-06 11:52 | HHI.PR ---
Subjective Remarks Follow up for afib anticoagulated on Coumadin. Patient seen and examined. She reports mild headache today. She just received Tylenol. She denies any other acute medical complaints at this time. Discussed with Lashaun TAYLOR, no acute issues noted. Objective Vitals Vital Signs Date Time Temp Pulse Resp B/P (MAP) Pulse Ox O2 Delivery O2 Flow Rate FiO2 06/06/17 05:42 98.7 81 18 149/79 (102) 98 I/O 06/05/17 06/05/17 06/05/17 06/06/17 06/06/17 06/06/17 07:00 15:00 23:00 07:00 15:00 23:00 Intake Total 360 ml 720 ml 120 ml 0 ml 360 ml Balance 360 ml 720 ml 120 ml 0 ml 360 ml Intake Oral 360 ml 720 ml 120 ml 0 ml 360 ml # Voids 2 5 2 2 # Bowel Movements 0 Result Diagram: 06/05/17212506/06/17 0000 Imaging Last Impressions Carotid Artery Ultrasound 06/05/17 0000 Signed Impressions: Service Date/Time: Monday, June 05, 2017 18:17 - CONCLUSION: 1. Mild visible plaque formation in the carotid arteries bilaterally without hemodynamically significant stenosis. Khris Recinos MD Maxillofacial CT 06/04/[id number] Signed Impressions: Service Date/Time: Sunday, June 04, 2017 22:10 - CONCLUSION: 1. No acute findings. Khris Recinos MD Head CT 06/04/17 0000 Signed Impressions: Service Date/Time: Sunday, June 04, 2017 22:04 - CONCLUSION: 1. No acute intracranial abnormalities.No significant change has occurred. Khris Recinos MD Objective Remarks GENERAL: Well-nourished, well-developed elderly female patient in NAD. Awake and alert. Lying in bed. SKIN: Warm and dry. Ecchymosis noted over right side of forehead, nose and lower lip. (+)edematous nose and lip. HEAD: Normocephalic. Tender ecchymotic bump over right side of forehead. EYES: EOMI. No scleral icterus. No injection or drainage. ENT: No nasal bleeding or discharge. Mucous membranes pink and moist. NECK: Supple. Trachea midline. CARDIOVASCULAR: Irregular. S1, S2 noted. No murmur appreciated. RESPIRATORY: Nonlabored. Clear to auscultation. Breath sounds equal bilaterally. GASTROINTESTINAL: Abdomen soft, non-tender, nondistended. Normoactive bowel sounds x4. MUSCULOSKELETAL: No obvious deformities. Extremities without clubbing, cyanosis , or edema. NEUROLOGICAL: Awake and alert. No obvious cranial nerve deficits. Able to move all extremities spontaneously. No focal neurologic finding. Normal speech. Medications and IVs Current Medications Medications (Trade) Dose Ordered Sig/Cj Route Start Time Stop Time Status Last Admin (Tylenol) 650 mg Q4H PRN PO 05/24/17 21:00 05/31/17 21:17 (Milk Of Magnesia Liq) 30 ml DAILY PRN PO 05/24/17 21:00 (Mag-Al Plus Susp Liq) 30 ml Q6H PRN PO 05/24/17 21:00 (Ecotrin Ec) 81 mg DAILY PO 05/25/17 09:00 06/06/17 07:55 (Lanoxin) 0.125 mg DAILY PO 05/25/17 09:00 06/06/17 07:56 (Trusopt 2% Opth Soln) 1 drop BID EACH EYE 05/24/17 21:00 06/06/17 13:26 (Xalatan 0.005% Opth Soln) 1 drop HS EACH EYE 05/24/17 21:00 06/05/17 21:00 (Oscal-D 250-125) 500 mg BID PO 05/24/17 21:00 06/06/17 07:56 (Atarax) 50 mg Q6H PRN PO 05/25/17 12:00 06/04/17 12:00 (Vitamin B12) 1,000 mcg DAILY PO 05/26/17 09:00 06/06/17 07:54 (Aricept) 10 mg HS PO 05/25/17 21:00 06/05/17 21:00 (Ferrous Sulfate) 324 mg BID PO 05/25/17 21:00 06/06/17 07:55 (Theragran) 1 tab DAILY PO 05/26/17 09:00 06/06/17 07:55 (Ocuvite) 1 tab DAILY PO 05/26/17 09:00 06/06/17 07:54 (Vitamin D3) 5,000 units DAILY PO 05/27/17 09:00 06/06/17 07:55 (Toprol Xl) 50 mg DAILY PO 05/30/17 09:00 06/06/17 13:27 (Eliquis) 2.5 mg BID PO 06/05/17 09:00 Future Hold 06/05/17 08:53 (SEROquel) 50 mg QID PO 06/04/17 18:00 06/06/17 13:27 A/P Problem List: (1) Alzheimer disease ICD Code: G30.9 - Alzheimer's disease, unspecified; F02.80 - Dementia in other diseases classified elsewhere without behavioral disturbance (2) Atrial fibrillation, controlled ICD Code: I48.91 - Atrial fibrillation, controlled Status: Acute (3) Dementia ICD Code: F03.90 - Dementia Status: Acute (4) HTN (hypertension) ICD Code: I10 - Essential (primary) hypertension Assessment and Plan 86-year-old female who came in from [facility] with primary medical history of Alzheimer's disease, A. fib, PPM, HTN who came into the ED secondary to Alzheimer's outbursts. Alzheimer's Dementia with behavioral disturbances -Continue management per psychiatry s/p fall while on the unit, specifics unknown Closed head injury -CT head shows no acute intracranial process -Maxillofacial CT shows no evidence of fracture or dislocation -Suspect medication side effect as patient given Haldol and Ativan due to increased agitation and combativeness prior to fall -workup unremarkable except for 2D echo and orthostatic BP measurements which is still pending and EKG which patient refused -PT eval/tx -fall precautions A. fib with subtherapeutic INR Rate controlled -Continue patient's metoprolol and digoxin for rate control -INR subtherapeutic. Goal INR 2-3. Patient refusing multiple blood draws needed to reassess INR level/Coumadin dosing. Coumadin discontinued. Patient started on Eliquis - first dose yesterday morning. Given patient's recent fall last night while on the unit, will hold Eliquis for now. May not be a good choice for oral anticoagulation. -[id number] score 3, HAS-BLED score 2. -digoxin level low at 0.6, suspect secondary to medication noncompliance. Give one-time dose of digoxin now. Hypertension: Adequately controlled -Continue patient's metoprolol -Continue to monitor BP and adjust treatment accordingly Anemia: chronic -Stable -Continue ferrous sulfate 324mg bid Vitamin D Deficiency: Vit D 16 -Continue cholecalciferol. -Repeat vitamin D levels in 3 months as outpatient. DVT prophylaxis: Ambulation Yuridia Loyd Jun 06, 2017 11:52
[2017-06-06] MEDS: DORZOLAMIDE 2% OPTH SOLN 200 DROP/10 ML BTLO EACH EYE SCH ×2 (13:26→20:53)
[2017-06-06] MEDS: METOPROLOL SUCCINATE 50 MG EXTENDED RELEASE TAB PO SCH (13:27)
[2017-06-06] MEDS ORDERED: DIGOXIN 0.125 MG TAB PO ONE (16:15)
--- NOTE | 2017-06-06 18:21 | ECHRPT ---
Indication: CVA/TIA CONCLUSIONS Normal left ventricular size. Wall thickness is mildly increased. The left ventricular systolic function is normal with an estimated ejection fraction of 55%. Trace mitral valve regurgitation. Aortic valve sclerosis is present. Trace to mild aortic valve regurgitation. BP: / HR: Rhythm: MEASUREMENTS (Male / Female) Normal Values Technical Quality:Good 2D ECHO LV Diastolic Diameter PLAX 4.3 cm 4.2 - 5.9 / 3.9 - 5.3 cm LV Systolic Diameter PLAX 3.2 cm IVS Diastolic Thickness 1.3 cm 0.6 - 1.0 / 0.6 - 0.9 cm LVPW Diastolic Thickness 0.8 cm 0.6 - 1.0 / 0.6 - 0.9 cm LV Relative Wall Thickness 0.5 RV Internal Dim ED PLAX 2.0 cm LA Systolic Diameter LX 3.6 cm 3.0 - 4.0 / 2.7 - 3.8 cm DOPPLER AV Peak Velocity 195.0 cm/s AV Peak Gradient 15.2 mmHg LVOT Peak Velocity 79.0 cm/s LVOT Peak Gradient 2.5 mmHg Mitral E Point Velocity 85.4 cm/s Mitral A Point Velocity 36.5 cm/s Mitral E to A Ratio 2.3 TR Peak Velocity 183.7 cm/s TR Peak Gradient 13.5 mmHg FINDINGS LEFT VENTRICLE Normal left ventricular size. Wall thickness is mildly increased. The left ventricular systolic function is normal with an estimated ejection fraction of 55%. RIGHT VENTRICLE Normal right ventricular size and systolic function. LEFT ATRIUM The left atrial size is normal. RIGHT ATRIUM The right atrial size is normal. ATRIAL SEPTUM Normal atrial septal thickness without atrial level shunting by limited color doppler interrogation. AORTA The aortic root and proximal ascending aorta are normal in size on limited imaging. MITRAL VALVE Trace mitral valve regurgitation. AORTIC VALVE Aortic valve sclerosis is present. Trace to mild aortic valve regurgitation. TRICUSPID VALVE Structurally normal tricuspid valve. No tricuspid valve stenosis or regurgitation. PULMONARY VALVE The pulmonary valve is not well visualized. VESSELS The inferior vena cava is normal in size. PERICARDIUM No pericardial effusion. Felicitas David MD, FACC (Electronically Signed) Final Date:06 June 2017 18:19
[2017-06-06 19:22] LABS: INTERNATIONAL NORMALIZED RATIO 1.3 RATIO; PROTHROMBIN TIME - PATIENT 13.6 SEC (9.8-11.6)
--- NOTE | 2017-06-06 19:45 | RADRPT ---
EXAM DATE/TIME: 06/06/2017 19:33 [facility] COMPARISON: CT BRAIN W/O CONTRAST, June 04, 2017, 22:04. INDICATIONS : Trauma, fall. RADIATION DOSE: 56.35 CTDIvol (mGy) ; Patient motion MEDICAL HISTORY : Cardiovascular disease. Hypertension. SURGICAL HISTORY : Pacemaker. ENCOUNTER: Initial ACUITY: 1 day PAIN SCALE: 0/10 LOCATION: cranial TECHNIQUE: Multiple contiguous axial images were obtained of the head. Using automated exposure control and adj ustment of the mA and/or kV according to patient size, radiation dose was kept as low as reasonably a chievable to obtain optimal diagnostic quality images. DICOM format image data is available electro nically for review and comparison. FINDINGS: There is no evidence for intracranial hemorrhage, mass effect, mass lesions, or edema. The visualize d bony structures appear intact. Significant degree of brain atrophy is seen. Moderate to severe per iventricular white matter changes are seen nonspecific mostly consistent with chronic small vessel is chemic changes. There are no signs of acute infarction for technique. CONCLUSION: Chronic and small vessel ischemic changes without any evidence for acute hemorrhage o r mass effect. Prudence Bautista MD on June 06, 2017 at 19:42 Board Certified Radiologist. This report was verified electronically.
[2017-06-06] MEDS: DONEPEZIL HCL 5 MG TAB PO SCH (20:49)
[2017-06-06] MEDS: LATANOPROST 0.005% OPHT SOLN 2.5 ML BTL EACH EYE SCH (20:53)
[2017-06-07 05:41] VITALS: BP 136/59; PULSE 74; RESP 18; TEMP 98.8; O2SAT 97
[2017-06-07] MEDS: DORZOLAMIDE 2% OPTH SOLN 200 DROP/10 ML BTLO EACH EYE SCH ×2 (09:00→19:32)
[2017-06-07] MEDS: FERROUS SULFATE 325 MG (65 MG ELEMENTAL IRON) TAB PO SCH ×2 (09:00→19:33)
[2017-06-07] MEDS: CHOLECALCIFEROL (VIT D3) 5000 UNIT CAP PO SCH (09:00)
[2017-06-07] MEDS: METOPROLOL SUCCINATE 50 MG EXTENDED RELEASE TAB PO SCH (09:00)
[2017-06-07] MEDS: ASPIRIN EC 81 MG TABEC PO SCH (09:01)
[2017-06-07] MEDS: MULTIVITAMIN TAB PO SCH (09:01)
[2017-06-07] MEDS: DIGOXIN 0.125 MG TAB PO SCH (09:02)
[2017-06-07] MEDS: MULTIVITAMIN-OPHTHALMIC 1 TAB PO SCH (09:02)
[2017-06-07] MEDS: QUEtiapine FUMARATE 25 MG TAB PO SCH ×4 (09:03→19:35)
[2017-06-07] MEDS: CYANOCOBALAMIN 1,000 MCG TAB PO SCH (09:03)
[2017-06-07] MEDS: CALCIUM/VITAMIN D 250 MG/125 U TAB PO SCH ×2 (09:04→19:34)
[2017-06-07] MEDS ORDERED: WALKER WHEELS/F1 MIS (14:11)
--- NOTE | 2017-06-07 14:29 | HHI.PYPN ---
Subjective Chief Complaint: patient demented with aggressive behavior at fpc Remarks Patient seen in dayroom with floor staff, patient calm napping somewhat though arousable to diffusely confused. There is some mild irritability though nothing at this extreme and she has been trying the past few days. For now continue treatment Review of Systems Except as stated in HPI: all other systems reviewed are Neg Mental Status Examination Appearance: Appropriate (in hospital gown) Consciousness: Alert Orientation: Person Motor Activity: Normal gait (slight shuffling) Speech: Unremarkable Language: Adequate Fund of Knowledge: Inadequate Attention and Concentration: Easily Distracted Memory: Impaired Mood: Other (labile) Affect: Labile Thought Process & Associations: Loose associations Thought Content: Other Delusion Type: None Suicidal Ideation: No Suicidal Plan: No Suicidal Intention: No Homicidal Ideation: No Homicidal Plan: No Homicidal Intention: No Insight: Poor Judgment: Poor Results Labs Test 06/06/17 18:11 Prothrombin Time 13.6 SEC Prothromb Time International Ratio 1.3 RATIO Vitals/IOs Vital Signs Date Time Temp Pulse Resp B/P (MAP) Pulse Ox O2 Delivery O2 Flow Rate FiO2 06/07/17 05:41 98.8 74 18 136/59 (84) 97 Assessment & Plan Problem List: (1) ALZHEIMER'S DISEASE WITH LATE ONSET ICD Codes: G30.1 - ALZHEIMER'S DISEASE WITH LATE ONSET (2) DEMENTIA IN OTH DISEASES CLASSD ELSWHR W BEHAVIORAL DISTURB ICD Codes: F02.81 - DEMENTIA IN OTH DISEASES CLASSD ELSWHR W BEHAVIORAL DISTURB Assessment & Plan Estimated LOS: days patient remains confused and demented. But appears she is somewhat less irritable today less profane. Justification for Cont. Inpt. At this time patient will decompensate if placed in the lower level of care Discharge Planning Placement may become problematic Request HC Surrog/Guard Advoc?: Yes Eduardo Mills MD Jun 07, 2017 14:29
--- NOTE | 2017-06-07 14:52 | HHI.PR ---
Subjective Remarks Follow-up on patient with Uzair andrew, status post fall. Patient seen and examined. Patient complains of some low back pain today which she states is chronic. She denies any other acute medical complaints. Objective Vitals Vital Signs Date Time Temp Pulse Resp B/P (MAP) Pulse Ox O2 Delivery O2 Flow Rate FiO2 06/07/17 05:41 98.8 74 18 136/59 (84) 97 06/06/17 23:00 97.8 70 20 144/65 (91) 97 06/06/17 22:00 65 16 128/60 (82) 06/06/17 21:20 97.8 89 20 115/56 (75) 99 06/06/17 20:00 98.8 87 20 123/64 (83) 99 06/06/17 19:05 81 18 109/71 (84) 06/06/17 18:20 98.1 76 18 132/76 (94) 99 I/O 06/06/17 06/06/17 06/06/17 06/07/17 06/07/17 06/07/17 07:00 15:00 23:00 07:00 15:00 23:00 Intake Total 0 ml 360 ml 660 ml Balance 0 ml 360 ml 660 ml Intake Oral 0 ml 360 ml 660 ml # Voids 2 4 Result Diagram: 06/05/17212506/06/17 0000 Imaging Last Impressions Head CT 06/06/17 0000 Signed Impressions: Service Date/Time: Tuesday, June 06, 2017 19:33 - CONCLUSION: Chronic and small vessel ischemic changes without any evidence for acute hemorrhage or mass effect. Prudence Bautista MD Carotid Artery Ultrasound 06/05/17 0000 Signed Impressions: Service Date/Time: Monday, June 05, 2017 18:17 - CONCLUSION: 1. Mild visible plaque formation in the carotid arteries bilaterally without hemodynamically significant stenosis. Khris Recinos MD Maxillofacial CT 06/04/177 Signed Impressions: Service Date/Time: Sunday, June 04, 2017 22:10 - CONCLUSION: 1. No acute findings. Khris Recinos MD Objective Remarks GENERAL: Well-nourished, well-developed elderly female patient in NAD. Awake. Sitting in dayroom. Will not open her eyes. Will not sit up assess her back complaints. Limited examination as patient not very cooperative with examination today. Appears comfortable. SKIN: Warm and dry. Ecchymosis noted over right side of forehead, nose and bottom lip, improving. HEAD: Normocephalic. Tender ecchymotic bump over right side of forehead, improving. EYES: Patient will not open her eyes. ENT: No nasal bleeding or discharge. NECK: Trachea midline. CARDIOVASCULAR: Irregular. S1, S2 noted. No murmur appreciated. RESPIRATORY: Nonlabored. Clear to auscultation. Breath sounds equal bilaterally. GASTROINTESTINAL: Abdomen soft, non-tender, nondistended. Normoactive bowel sounds x4. MUSCULOSKELETAL: Extremities without clubbing, cyanosis, or edema. NEUROLOGICAL: Awake. Able to move all extremities spontaneously. Normal speech. PSYCHIATRIC: Flat affect, minimal verbalization. Will not open eyes. Inappropriate judgment and insight. Medications and IVs Current Medications Medications (Trade) Dose Ordered Sig/Cj Route Start Time Stop Time Status Last Admin (Tylenol) 650 mg Q4H PRN PO 05/24/17 21:00 05/31/17 21:17 (Milk Of Magnesia Liq) 30 ml DAILY PRN PO 05/24/17 21:00 (Mag-Al Plus Susp Liq) 30 ml Q6H PRN PO 05/24/17 21:00 (Ecotrin Ec) 81 mg DAILY PO 05/25/17 09:00 06/07/17 09:01 (Lanoxin) 0.125 mg DAILY PO 05/25/17 09:00 06/07/17 09:02 (Trusopt 2% Opth Soln) 1 drop BID EACH EYE 05/24/17 21:00 06/06/17 13:26 (Xalatan 0.005% Opth Soln) 1 drop HS EACH EYE 05/24/17 21:00 06/05/17 21:00 (Oscal-D 250-125) 500 mg BID PO 05/24/17 21:00 06/07/17 09:04 (Atarax) 50 mg Q6H PRN PO 05/25/17 12:00 06/04/17 12:00 (Vitamin B12) 1,000 mcg DAILY PO 05/26/17 09:00 06/07/17 09:03 (Aricept) 10 mg HS PO 05/25/17 21:00 06/06/17 20:49 (Ferrous Sulfate) 324 mg BID PO 05/25/17 21:00 06/07/17 09:00 (Theragran) 1 tab DAILY PO 05/26/17 09:00 06/07/17 09:01 (Ocuvite) 1 tab DAILY PO 05/26/17 09:00 06/07/17 09:02 (Vitamin D3) 5,000 units DAILY PO 05/27/17 09:00 06/07/17 09:00 (Toprol Xl) 50 mg DAILY PO 05/30/17 09:00 06/07/17 09:00 (Eliquis) 2.5 mg BID PO 06/05/17 09:00 Future Hold 06/05/17 08:53 (SEROquel) 50 mg QID PO 06/04/17 18:00 06/07/17 09:03 A/P Problem List: (1) Alzheimer disease ICD Code: G30.9 - Alzheimer's disease, unspecified; F02.80 - Dementia in other diseases classified elsewhere without behavioral disturbance (2) Atrial fibrillation, controlled ICD Code: I48.91 - Atrial fibrillation, controlled Status: Acute (3) Dementia ICD Code: F03.90 - Dementia Status: Acute (4) HTN (hypertension) ICD Code: I10 - Essential (primary) hypertension Assessment and Plan 86-year-old female who came in from [facility] with primary medical history of Alzheimer's disease, A. fib, PPM, HTN who came into the ED secondary to Alzheimer's outbursts. Alzheimer's Dementia with behavioral disturbances -Continue management per psychiatry s/p fall while on the unit, specifics unknown Closed head injury -CT head shows no acute intracranial process -Maxillofacial CT shows no evidence of fracture or dislocation -Suspect medication side effect as patient given Haldol and Ativan due to increased agitation and combativeness prior to fall -Orthostatic blood pressure measurements ordered never done -Echo with EF of 55% -Continue participation with PT. Wheeled walker ordered as recommended by PT. -fall precautions A. fib with subtherapeutic INR Rate controlled -Continue patient's metoprolol and digoxin for rate control -INR subtherapeutic. Goal INR 2-3. Patient refusing multiple blood draws needed to reassess INR level/Coumadin dosing. Coumadin discontinued. Patient started on Eliquis. Patient has fallen twice while on the psych unit. Eliquis on hold. May not be a good candidate for oral anticoagulation. Spoke with Mark white daughter regarding risk/benefits of anticoagulation. She wishes to discuss it further with her other family members. -[id number] score 3, HAS-BLED score 2. -digoxin level low at 0.6, suspect secondary to medication noncompliance. Given one-time dose of digoxin now. Hypertension: Adequately controlled -Continue patient's metoprolol -Continue to monitor BP and adjust treatment accordingly Anemia: chronic -Stable -Continue ferrous sulfate 324mg bid Vitamin D Deficiency: Vit D 16 -Continue cholecalciferol. -Repeat vitamin D levels in 3 months as outpatient. DVT prophylaxis: Ambulation Yuridia Loyd Jun 07, 2017 14:52
[2017-06-07 17:41] VITALS: BP 141/82; PULSE 85; RESP 18; TEMP 98.3; O2SAT 97
[2017-06-07] MEDS: ACETAMINOPHEN 325 MG TAB PO PRN (19:33)
[2017-06-07] MEDS: DONEPEZIL HCL 5 MG TAB PO SCH (19:34)
[2017-06-07] MEDS: LATANOPROST 0.005% OPHT SOLN 2.5 ML BTL EACH EYE SCH (21:00)
[2017-06-08 06:05] VITALS: BP 117/74; PULSE 70; RESP 15
[2017-06-08] MEDS: DIGOXIN 0.125 MG TAB PO SCH (08:19)
[2017-06-08] MEDS: ASPIRIN EC 81 MG TABEC PO SCH (08:20)
[2017-06-08] MEDS: MULTIVITAMIN-OPHTHALMIC 1 TAB PO SCH (08:20)
[2017-06-08] MEDS: QUEtiapine FUMARATE 25 MG TAB PO SCH ×3 (08:20→22:00)
[2017-06-08] MEDS: MULTIVITAMIN TAB PO SCH (08:29)
[2017-06-08] MEDS: CYANOCOBALAMIN 1,000 MCG TAB PO SCH (08:29)
[2017-06-08] MEDS: METOPROLOL SUCCINATE 50 MG EXTENDED RELEASE TAB PO SCH (08:29)
[2017-06-08] MEDS: CALCIUM/VITAMIN D 250 MG/125 U TAB PO SCH ×2 (08:29→21:18)
[2017-06-08] MEDS: FERROUS SULFATE 325 MG (65 MG ELEMENTAL IRON) TAB PO SCH ×2 (08:29→21:19)
[2017-06-08] MEDS: DORZOLAMIDE 2% OPTH SOLN 200 DROP/10 ML BTLO EACH EYE SCH ×2 (08:29→21:21)
[2017-06-08] MEDS: CHOLECALCIFEROL (VIT D3) 5000 UNIT CAP PO SCH (08:29)
[2017-06-08] MEDS: ACETAMINOPHEN 325 MG TAB PO PRN ×2 (13:45→21:47)
[2017-06-08 14:52] LABS: INTERNATIONAL NORMALIZED RATIO 1.2 RATIO; PROTHROMBIN TIME - PATIENT 11.9 SEC (9.8-11.6)
--- NOTE | 2017-06-08 14:54 | HHI.PYPN ---
Subjective Chief Complaint: patient [facility] Remarks Seen in day room with nurse Michelle, small ecchymosis noted over right orbit from earlier fall, imaging has been negative. Patient alert diffusely confused , though no signs of paranoia at this time and patient is not using profanity. She has states they've noticed some sedation in the morning with this patient. Will change scheduled Seroquel to 50 mg 10 AM 4 PM and 10 PM Review of Systems Except as stated in HPI: all other systems reviewed are Neg Mental Status Examination Appearance: Appropriate (in hospital gown) Consciousness: Alert Orientation: Person Motor Activity: Normal gait (slight shuffling) Speech: Unremarkable Language: Adequate Fund of Knowledge: Inadequate Attention and Concentration: Easily Distracted Memory: Impaired Mood: Other (labile) Affect: Labile Thought Process & Associations: Loose associations Thought Content: Other Delusion Type: None Suicidal Ideation: No Suicidal Plan: No Suicidal Intention: No Homicidal Ideation: No Homicidal Plan: No Homicidal Intention: No Insight: Poor Judgment: Poor Results Labs Test 06/08/17 14:10 Vitals/IOs Vital Signs Date Time Temp Pulse Resp B/P (MAP) Pulse Ox O2 Delivery O2 Flow Rate FiO2 06/08/17 06:05 70 15 117/74 (88) 06/07/17 17:41 98.3 97 Intake and Output 06/08/17 06/08/17 06/09/17 08:00 16:00 00:00 Intake Total 240 ml Balance 240 ml Assessment & Plan Problem List: (1) ALZHEIMER'S DISEASE WITH LATE ONSET ICD Codes: G30.1 - ALZHEIMER'S DISEASE WITH LATE ONSET (2) DEMENTIA IN OTH DISEASES CLASSD ELSWHR W BEHAVIORAL DISTURB ICD Codes: F02.81 - DEMENTIA IN OTH DISEASES CLASSD ELSWHR W BEHAVIORAL DISTURB Assessment & Plan Estimated LOS: days patient somewhat calmer today most continues confused and disoriented. She medication adjustment above Justification for Cont. Inpt. At this time patient decompensated placed in a lower level of care Discharge Planning Placement remains problematic Request HC Surrog/Guard Advoc?: Yes Eduardo Mills MD Jun 08, 2017 14:54
--- NOTE | 2017-06-08 15:01 | HHI.PR ---
Subjective Remarks Follow-up on patient with Uzair andrew, status post fall. Patient seen. Refuses examination. Tells me to go away. Discussed with CLAUDIA Martinez no acute issues noted. Patient refusing blood draws today. Objective Vitals Vital Signs Date Time Temp Pulse Resp B/P (MAP) Pulse Ox O2 Delivery O2 Flow Rate FiO2 06/08/17 06:05 70 15 117/74 (88) 06/07/17 17:41 98.3 85 18 141/82 (101) 97 I/O 06/07/17 06/07/17 06/07/17 06/08/17 06/08/17 06/08/17 06:59 14:59 22:59 06:59 14:59 22:59 Intake Total 0 ml 360 ml 240 ml Balance 0 ml 360 ml 240 ml Intake Oral 0 ml 360 ml 240 ml # Voids 5 Result Diagram: 06/05/17212506/06/17 0000 Imaging Last Impressions Head CT 06/06/17 0000 Signed Impressions: Service Date/Time: Tuesday, June 06, 2017 19:33 - CONCLUSION: Chronic and small vessel ischemic changes without any evidence for acute hemorrhage or mass effect. Prudence Bautista MD Carotid Artery Ultrasound 06/05/17 0000 Signed Impressions: Service Date/Time: Monday, June 05, 2017 18:17 - CONCLUSION: 1. Mild visible plaque formation in the carotid arteries bilaterally without hemodynamically significant stenosis. Khris Recinos MD Maxillofacial CT 06/04/17 2217 Signed Impressions: Service Date/Time: Sunday, June 04, 2017 22:10 - CONCLUSION: 1. No acute findings. Khris Recinos MD Objective Remarks GENERAL: Well-nourished, well-developed elderly female patient in NAD. Awake. Lying in her bed in her room. Will not open her eyes. Refuses examination. Appears comfortable. SKIN: Ecchymosis noted over right side of forehead, nose and bottom lip, improving. HEAD: Normocephalic. EYES: Patient will not open her eyes. ENT: No nasal bleeding or discharge. NECK: Trachea midline. CARDIOVASCULAR: Refused exam RESPIRATORY: Refused exam GASTROINTESTINAL: Refused exam PSYCHIATRIC: Flat affect, minimal verbalization. Will not open eyes. Inappropriate judgment and insight. Medications and IVs Current Medications Medications (Trade) Dose Ordered Sig/Cj Route Start Time Stop Time Status Last Admin (Tylenol) 650 mg Q4H PRN PO 05/24/17 21:00 06/08/17 13:45 (Milk Of Magnesia Liq) 30 ml DAILY PRN PO 05/24/17 21:00 (Mag-Al Plus Susp Liq) 30 ml Q6H PRN PO 05/24/17 21:00 (Ecotrin Ec) 81 mg DAILY PO 05/25/17 09:00 06/08/17 08:20 (Lanoxin) 0.125 mg DAILY PO 05/25/17 09:00 06/08/17 08:19 (Trusopt 2% Opth Soln) 1 drop BID EACH EYE 05/24/17 21:00 06/08/17 08:29 (Xalatan 0.005% Opth Soln) 1 drop HS EACH EYE 05/24/17 21:00 06/05/17 21:00 (Oscal-D 250-125) 500 mg BID PO 05/24/17 21:00 06/08/17 08:29 (Atarax) 50 mg Q6H PRN PO 05/25/17 12:00 06/04/17 12:00 (Vitamin B12) 1,000 mcg DAILY PO 05/26/17 09:00 06/08/17 08:29 (Aricept) 10 mg HS PO 05/25/17 21:00 06/07/17 19:34 (Ferrous Sulfate) 324 mg BID PO 05/25/17 21:00 06/08/17 08:29 (Theragran) 1 tab DAILY PO 05/26/17 09:00 06/08/17 08:29 (Ocuvite) 1 tab DAILY PO 05/26/17 09:00 06/08/17 08:20 (Vitamin D3) 5,000 units DAILY PO 05/27/17 09:00 06/08/17 08:29 (Toprol Xl) 50 mg DAILY PO 05/30/17 09:00 06/08/17 08:29 (Eliquis) 2.5 mg BID PO 06/05/17 09:00 Future Hold 06/05/17 08:53 (SEROquel) 50 mg TID@1000,1600,2200 PO 06/08/17 22:00 A/P Problem List: (1) Alzheimer disease ICD Code: G30.9 - Alzheimer's disease, unspecified; F02.80 - Dementia in other diseases classified elsewhere without behavioral disturbance (2) Atrial fibrillation, controlled ICD Code: I48.91 - Atrial fibrillation, controlled Status: Acute (3) Dementia ICD Code: F03.90 - Dementia Status: Acute (4) HTN (hypertension) ICD Code: I10 - Essential (primary) hypertension Assessment and Plan 86-year-old female who came in from [facility] elderly home with primary medical history of Alzheimer's disease, A. fib, PPM, HTN who came into the ED secondary to Alzheimer's outbursts. Alzheimer's Dementia with behavioral disturbances -Continue management per psychiatry s/p fall while on the unit, specifics unknown Closed head injury -CT head shows no acute intracranial process -Maxillofacial CT shows no evidence of fracture or dislocation -Suspect medication side effect as patient given Haldol and Ativan due to increased agitation and combativeness prior to fall -Orthostatic blood pressure measurements not done, reordered -Echo with EF of 55% -Continue participation with PT. Wheeled walker ordered as recommended by PT. -fall precautions A. fib with subtherapeutic INR Rate controlled -Continue patient's metoprolol and digoxin for rate control -INR subtherapeutic. Goal INR 2-3. Patient refusing multiple blood draws needed to reassess INR level/Coumadin dosing. Coumadin discontinued. Patient started on Eliquis. Patient has fallen twice while on the psych unit. Eliquis on hold. May not be a good candidate for oral anticoagulation. Spoke with Mark white daughter regarding risk/benefits of anticoagulation. She wishes to discuss it further with her other family members. -[id number] score 3, HAS-BLED score 2. -digoxin level low at 0.6, suspect secondary to medication noncompliance. Given one-time dose of digoxin. Hypertension: Adequately controlled -Continue patient's metoprolol -Continue to monitor BP and adjust treatment accordingly Anemia: chronic -Stable -Continue ferrous sulfate 324mg bid Vitamin D Deficiency: Vit D 16 -Continue cholecalciferol. -Repeat vitamin D levels in 3 months as outpatient. DVT prophylaxis: Ambulation Yuridia Loyd Jun 08, 2017 15:01
[2017-06-08] MEDS: LATANOPROST 0.005% OPHT SOLN 2.5 ML BTL EACH EYE SCH (21:00)
[2017-06-08] MEDS: DONEPEZIL HCL 5 MG TAB PO SCH (21:00)
[2017-06-09 06:02] VITALS: BP 139/67; PULSE 100; RESP 16; TEMP 98
[2017-06-09] MEDS: DORZOLAMIDE 2% OPTH SOLN 200 DROP/10 ML BTLO EACH EYE SCH ×2 (09:00→20:15)
[2017-06-09] MEDS: FERROUS SULFATE 325 MG (65 MG ELEMENTAL IRON) TAB PO SCH ×2 (09:00→20:18)
[2017-06-09] MEDS: CALCIUM/VITAMIN D 250 MG/125 U TAB PO SCH ×2 (09:00→20:17)
[2017-06-09] MEDS: METOPROLOL SUCCINATE 50 MG EXTENDED RELEASE TAB PO SCH (09:00)
[2017-06-09] MEDS: CHOLECALCIFEROL (VIT D3) 5000 UNIT CAP PO SCH (09:00)
[2017-06-09] MEDS: DIGOXIN 0.125 MG TAB PO SCH (09:00)
[2017-06-09] MEDS: ASPIRIN EC 81 MG TABEC PO SCH (09:00)
[2017-06-09] MEDS: CYANOCOBALAMIN 1,000 MCG TAB PO SCH (09:00)
[2017-06-09] MEDS: MULTIVITAMIN-OPHTHALMIC 1 TAB PO SCH (09:00)
[2017-06-09] MEDS: MULTIVITAMIN TAB PO SCH (09:00)
[2017-06-09] MEDS: QUEtiapine FUMARATE 25 MG TAB PO SCH ×3 (10:00→21:03)
--- NOTE | 2017-06-09 13:05 | HHI.PR ---
Subjective Remarks Follow-up on patient with A. fib, status post fall. Patient seen and examined. Patient much more cooperative today. She denies any complaints. Denies any headache, dizziness or vision changes. Denies any chest pain or shortness of breath. Denies any nausea, vomiting or abdominal pain. Patient continues to refuse majority of her medications. Objective Vitals Vital Signs Date Time Temp Pulse Resp B/P (MAP) Pulse Ox O2 Delivery O2 Flow Rate FiO2 06/09/17 06:02 98.0 100 16 139/67 (91) I/O 06/08/17 06/08/17 06/08/17 06/09/17 06/09/17 06/09/17 06:59 14:59 22:59 06:59 14:59 22:59 Intake Total 360 ml 240 ml 1140 ml 340 ml Balance 360 ml 240 ml 1140 ml 340 ml Intake Oral 360 ml 240 ml 1140 ml 340 ml # Voids 5 2 Result Diagram: 06/05/17212506/06/17 0000 Imaging Last Impressions Head CT 06/06/17 0000 Signed Impressions: Service Date/Time: Tuesday, June 06, 2017 19:33 - CONCLUSION: Chronic and small vessel ischemic changes without any evidence for acute hemorrhage or mass effect. Prudence Bautista MD Carotid Artery Ultrasound 06/05/17 0000 Signed Impressions: Service Date/Time: Monday, June 05, 2017 18:17 - CONCLUSION: 1. Mild visible plaque formation in the carotid arteries bilaterally without hemodynamically significant stenosis. Khris Recinos MD Maxillofacial CT 06/04/17 2217 Signed Impressions: Service Date/Time: Sunday, June 04, 2017 22:10 - CONCLUSION: 1. No acute findings. Khris Recinos MD Objective Remarks GENERAL: Well-nourished, well-developed elderly female patient in NAD. Awake and alert. Witnessed ambulating in the room. SKIN: Warm and dry. Ecchymosis noted over right side of forehead, nose and bottom lip, improving. HEAD: Normocephalic. EYES: EOMI. No scleral icterus. No injection or drainage. ENT: No nasal bleeding or discharge. Mucous membranes pink and moist. NECK: Supple. Trachea midline. CARDIOVASCULAR: Irregular. S1, S2 noted. No murmur appreciated. RESPIRATORY: Nonlabored. Clear to auscultation. Breath sounds equal bilaterally. GASTROINTESTINAL: Abdomen soft, non-tender, nondistended. Normoactive bowel sounds x4. MUSCULOSKELETAL: No obvious deformities. Extremities without clubbing, cyanosis , or edema. NEUROLOGICAL: Awake and alert. No obvious cranial nerve deficits. Able to move all extremities spontaneously. No focal neurologic finding. Normal speech. Medications and IVs Current Medications Medications (Trade) Dose Ordered Sig/Cj Route Start Time Stop Time Status Last Admin (Tylenol) 650 mg Q4H PRN PO 05/24/17 21:00 06/08/17 21:47 (Milk Of Magnesia Liq) 30 ml DAILY PRN PO 05/24/17 21:00 (Mag-Al Plus Susp Liq) 30 ml Q6H PRN PO 05/24/17 21:00 (Ecotrin Ec) 81 mg DAILY PO 05/25/17 09:00 06/08/17 08:20 (Lanoxin) 0.125 mg DAILY PO 05/25/17 09:00 06/08/17 08:19 (Trusopt 2% Opth Soln) 1 drop BID EACH EYE 05/24/17 21:00 06/08/17 21:21 (Xalatan 0.005% Opth Soln) 1 drop HS EACH EYE 05/24/17 21:00 06/08/17 21:00 (Oscal-D 250-125) 500 mg BID PO 05/24/17 21:00 06/08/17 21:18 (Atarax) 50 mg Q6H PRN PO 05/25/17 12:00 06/04/17 12:00 (Vitamin B12) 1,000 mcg DAILY PO 05/26/17 09:00 06/08/17 08:29 (Aricept) 10 mg HS PO 05/25/17 21:00 06/08/17 21:00 (Ferrous Sulfate) 324 mg BID PO 05/25/17 21:00 06/08/17 21:19 (Theragran) 1 tab DAILY PO 05/26/17 09:00 06/08/17 08:29 (Ocuvite) 1 tab DAILY PO 05/26/17 09:00 06/08/17 08:20 (Vitamin D3) 5,000 units DAILY PO 05/27/17 09:00 2/16/18 08:29 (Toprol Xl) 50 mg DAILY PO 05/30/17 09:00 06/08/17 08:29 (Eliquis) 2.5 mg BID PO 06/05/17 09:00 Future Hold 06/05/17 08:53 (SEROquel) 50 mg TID@1000,1600,2200 PO 06/08/17 22:00 06/09/17 10:00 A/P Problem List: (1) Alzheimer disease ICD Code: G30.9 - Alzheimer's disease, unspecified; F02.80 - Dementia in other diseases classified elsewhere without behavioral disturbance (2) Atrial fibrillation, controlled ICD Code: I48.91 - Atrial fibrillation, controlled Status: Acute (3) Dementia ICD Code: F03.90 - Dementia Status: Acute (4) HTN (hypertension) ICD Code: I10 - Essential (primary) hypertension Assessment and Plan 86-year-old female who came in from [facility] with primary medical history of Alzheimer's disease, A. fib, PPM, HTN who came into the ED secondary to Alzheimer's outbursts. Alzheimer's Dementia with behavioral disturbances -Continue management per psychiatry s/p fall while on the unit, specifics unknown Closed head injury -CT head shows no acute intracranial process -Maxillofacial CT shows no evidence of fracture or dislocation -Suspect medication side effect as patient given Haldol and Ativan due to increased agitation and combativeness prior to fall -Orthostatic blood pressure measurements not done, reordered, still not done -Echo with EF of 55% -Continue participation with PT. Wheeled walker ordered as recommended by PT. -fall precautions A. fib with subtherapeutic INR Rate controlled -Continue patient's metoprolol and digoxin for rate control -INR subtherapeutic. Goal INR 2-3. Patient refusing multiple blood draws needed to reassess INR level/Coumadin dosing. Coumadin discontinued. Patient started on Eliquis. Patient has fallen twice while on the psych unit. Eliquis on hold. May not be a good candidate for oral anticoagulation. Spoke with Mark Mackey patients daughter regarding risk/benefits of anticoagulation. She wishes to discuss it further with her other family members. -[id number] score 3, HAS-BLED score 2. -digoxin level low at 0.6, suspect secondary to medication noncompliance. Given one-time dose of digoxin. Hypertension: Adequately controlled -Continue patient's metoprolol -Continue to monitor BP and adjust treatment accordingly Anemia: chronic -Stable -Continue ferrous sulfate 324mg bid Vitamin D Deficiency: Vit D 16 -Continue cholecalciferol. -Repeat vitamin D levels in 3 months as outpatient. DVT prophylaxis: Ambulation Patient appears stable from medical standpoint. We will sign off for now. Please reconsult if needed. Yuridia Loyd Jun 09, 2017 13:05
--- NOTE | 2017-06-09 15:32 | HHI.PYPN ---
Subjective Chief Complaint: patient demented with aggressive behavior at snf Remarks Patient was seen and case discussed with nursing. Patient is alert and oriented 1. Patient remains grossly confused and disorganized. Compliant with medications. No outbursts. Internally preoccupied Mental Status Examination Appearance: Appropriate (in hospital gown) Consciousness: Alert Orientation: Person Motor Activity: Normal gait (slight shuffling) Speech: Unremarkable Language: Adequate Fund of Knowledge: Inadequate Attention and Concentration: Easily Distracted Memory: Impaired Mood: Other (labile) Affect: Irritable Thought Process & Associations: Loose associations Thought Content: Other Delusion Type: None Suicidal Ideation: No Suicidal Plan: No Suicidal Intention: No Homicidal Ideation: No Homicidal Plan: No Homicidal Intention: No Insight: Poor Judgment: Poor Results Vitals/IOs Vital Signs Date Time Temp Pulse Resp B/P (MAP) Pulse Ox O2 Delivery O2 Flow Rate FiO2 06/09/17 06:02 98.0 100 16 139/67 (91) 06/07/17 17:41 97 Intake and Output 06/09/17 06/09/17 06/10/17 08:00 16:00 00:00 Intake Total 340 ml Balance 340 ml Assessment & Plan Problem List: (1) ALZHEIMER'S DISEASE WITH LATE ONSET ICD Codes: G30.1 - ALZHEIMER'S DISEASE WITH LATE ONSET (2) DEMENTIA IN OTH DISEASES CLASSD ELSWHR W BEHAVIORAL DISTURB ICD Codes: F02.81 - DEMENTIA IN OTH DISEASES CLASSD ELSWHR W BEHAVIORAL DISTURB Assessment & Plan Continue current treatment plan Justification for Cont. Inpt. Patient would decompensate in a less restrictive setting. Request HC Surrog/Guard Advoc?: Yes Panchito Hannon DO Jun 09, 2017 15:32
[2017-06-09 20:00] VITALS: BP 132/62; PULSE 98; RESP 18; TEMP 97.9; O2SAT 96
[2017-06-09] MEDS: LATANOPROST 0.005% OPHT SOLN 2.5 ML BTL EACH EYE SCH (20:15)
[2017-06-09] MEDS: DONEPEZIL HCL 5 MG TAB PO SCH (20:18)
[2017-06-09] MEDS: APIXABAN 2.5 MG TABLET PO SCH (20:19)
[2017-06-10 06:01] VITALS: BP 119/61; PULSE 82; RESP 16; O2SAT 97
[2017-06-10] MEDS: DORZOLAMIDE 2% OPTH SOLN 200 DROP/10 ML BTLO EACH EYE SCH ×2 (09:00→20:19)
[2017-06-10] MEDS: CYANOCOBALAMIN 1,000 MCG TAB PO SCH (09:00)
[2017-06-10] MEDS: CHOLECALCIFEROL (VIT D3) 5000 UNIT CAP PO SCH (09:00)
[2017-06-10] MEDS: MULTIVITAMIN TAB PO SCH (09:00)
[2017-06-10] MEDS: METOPROLOL SUCCINATE 50 MG EXTENDED RELEASE TAB PO SCH (09:00)
[2017-06-10] MEDS: DIGOXIN 0.125 MG TAB PO SCH (09:00)
[2017-06-10] MEDS: ASPIRIN EC 81 MG TABEC PO SCH (09:00)
[2017-06-10] MEDS: FERROUS SULFATE 325 MG (65 MG ELEMENTAL IRON) TAB PO SCH ×2 (09:00→20:20)
[2017-06-10] MEDS: CALCIUM/VITAMIN D 250 MG/125 U TAB PO SCH ×2 (09:00→20:20)
[2017-06-10] MEDS: APIXABAN 2.5 MG TABLET PO SCH ×2 (09:00→20:19)
[2017-06-10] MEDS: MULTIVITAMIN-OPHTHALMIC 1 TAB PO SCH (09:00)
[2017-06-10] MEDS: QUEtiapine FUMARATE 25 MG TAB PO SCH ×3 (10:00→21:25)
--- NOTE | 2017-06-10 11:20 | HHI.PYPN ---
Subjective Chief Complaint: patient demented with aggressive behavior at senior living Remarks Patient was seen and case discussed with nursing. Patient is irritable during the interview. Alert and oriented 1. Tolerating her medications well and behaving well on the unit. No outbursts today. Mental Status Examination Appearance: Appropriate (in hospital gown) Consciousness: Alert Orientation: Person Motor Activity: Normal gait (slight shuffling) Speech: Unremarkable Language: Adequate Fund of Knowledge: Inadequate Attention and Concentration: Easily Distracted Memory: Impaired Mood: Other (labile) Affect: Irritable Thought Process & Associations: Loose associations Thought Content: Other Delusion Type: None Suicidal Ideation: No Suicidal Plan: No Suicidal Intention: No Homicidal Ideation: No Homicidal Plan: No Homicidal Intention: No Insight: Poor Judgment: Poor Results Vitals/IOs Vital Signs Date Time Temp Pulse Resp B/P (MAP) Pulse Ox O2 Delivery O2 Flow Rate FiO2 06/10/17 06:01 82 16 119/61 (80) 97 06/09/17 20:00 97.9 Intake and Output 06/10/17 06/10/17 06/11/17 08:00 16:00 00:00 Intake Total 0 ml Balance 0 ml Assessment & Plan Problem List: (1) ALZHEIMER'S DISEASE WITH LATE ONSET ICD Codes: G30.1 - ALZHEIMER'S DISEASE WITH LATE ONSET (2) DEMENTIA IN OTH DISEASES CLASSD ELSWHR W BEHAVIORAL DISTURB ICD Codes: F02.81 - DEMENTIA IN OTH DISEASES CLASSD ELSWHR W BEHAVIORAL DISTURB Assessment & Plan Continue current treatment plan Justification for Cont. Inpt. Patient will decompensate in a less restrictive setting Request HC Surrog/Guard Advoc?: Yes Panchito Hannon DO Jun 10, 2017 11:20
[2017-06-10 18:11] VITALS: BP 126/68; PULSE 80; RESP 18; TEMP 98.1; O2SAT 96
[2017-06-10] MEDS: LATANOPROST 0.005% OPHT SOLN 2.5 ML BTL EACH EYE SCH (20:19)
[2017-06-10] MEDS: DONEPEZIL HCL 5 MG TAB PO SCH (20:20)
[2017-06-11] MEDS: hydrOXYzine HCL 50 MG TAB PO PRN (01:36)
[2017-06-11] MEDS ORDERED: diphenhydrAMINE HCL 50 MG/ML VIAL ONE (01:40)
[2017-06-11] MEDS ORDERED: HALOPERIDOL LACTATE 5 MG/ML AMP ONE (01:41)
[2017-06-11] MEDS ORDERED: LORazepam 2 MG/ML VIAL ONE (01:42)
[2017-06-11] MEDS ORDERED: LORazepam 2 MG/ML VIAL IM ONE (02:00)
[2017-06-11] MEDS ORDERED: diphenhydrAMINE HCL 50 MG/ML VIAL IM ONE (02:00)
[2017-06-11] MEDS ORDERED: HALOPERIDOL LACTATE 5 MG/ML AMP IM ONE (02:00)
[2017-06-11 08:34] VITALS: BP 123/56; PULSE 107; RESP 19
[2017-06-11] MEDS: FERROUS SULFATE 325 MG (65 MG ELEMENTAL IRON) TAB PO SCH ×2 (08:50→21:00)
[2017-06-11] MEDS: DORZOLAMIDE 2% OPTH SOLN 200 DROP/10 ML BTLO EACH EYE SCH ×2 (08:50→21:00)
[2017-06-11] MEDS: DIGOXIN 0.125 MG TAB PO SCH (08:51)
[2017-06-11] MEDS: CYANOCOBALAMIN 1,000 MCG TAB PO SCH (08:51)
[2017-06-11] MEDS: CALCIUM/VITAMIN D 250 MG/125 U TAB PO SCH ×2 (08:51→21:00)
[2017-06-11] MEDS: ASPIRIN EC 81 MG TABEC PO SCH (08:51)
[2017-06-11] MEDS: APIXABAN 2.5 MG TABLET PO SCH ×2 (08:51→21:00)
[2017-06-11] MEDS: CHOLECALCIFEROL (VIT D3) 5000 UNIT CAP PO SCH (08:51)
[2017-06-11] MEDS: MULTIVITAMIN TAB PO SCH (08:51)
[2017-06-11] MEDS: MULTIVITAMIN-OPHTHALMIC 1 TAB PO SCH (08:51)
[2017-06-11] MEDS: METOPROLOL SUCCINATE 50 MG EXTENDED RELEASE TAB PO SCH (08:52)
[2017-06-11] MEDS: QUEtiapine FUMARATE 25 MG TAB PO SCH ×2 (10:27→17:01)
--- NOTE | 2017-06-11 11:41 | HHI.PYPN ---
Subjective Chief Complaint: patient demented with aggressive behavior at [facility] Remarks Patient seen in her room with medical student Leroy and nurse practitioner Marge , patient sitting quietly in her chair she is pleasantly confused at the present time. Patient needed ETO last night because of [id number] behavior issues very intrusive assaultive very profane screaming and yelling last night necessitating an ETO of Haldol and Ativan and Benadryl. For now we will adjust the Seroquel dosage to 25 mg twice a day and 100 mg at at bedtime Review of Systems Except as stated in HPI: all other systems reviewed are Neg Mental Status Examination Appearance: Appropriate (in hospital gown) Consciousness: Alert Orientation: Person Motor Activity: Normal gait (slight shuffling) Speech: Unremarkable Language: Adequate Fund of Knowledge: Inadequate Attention and Concentration: Easily Distracted Memory: Impaired Mood: Other (labile) Affect: Irritable Thought Process & Associations: Loose associations Thought Content: Other Delusion Type: None Suicidal Ideation: No Suicidal Plan: No Suicidal Intention: No Homicidal Ideation: No Homicidal Plan: No Homicidal Intention: No Insight: Poor Judgment: Poor Results Vitals/IOs Vital Signs Date Time Temp Pulse Resp B/P (MAP) Pulse Ox O2 Delivery O2 Flow Rate FiO2 06/11/17 08:34 107 19 123/56 (78) 06/10/17 18:11 98.1 96 Intake and Output 06/11/17 06/11/17 06/12/17 08:00 16:00 00:00 Intake Total 240 ml Balance 240 ml Assessment & Plan Problem List: (1) ALZHEIMER'S DISEASE WITH LATE ONSET ICD Codes: G30.1 - ALZHEIMER'S DISEASE WITH LATE ONSET (2) DEMENTIA IN OTH DISEASES CLASSD ELSWHR W BEHAVIORAL DISTURB ICD Codes: F02.81 - DEMENTIA IN OTH DISEASES CLASSD ELSWHR W BEHAVIORAL DISTURB Assessment & Plan Estimated LOS: days patient continues confused demented with significant out-of -control behavior primarily towards late evening bedtime. She medication adjustments above Justification for Cont. Inpt. At this time patient will decompensated placed in the lower level of care Discharge Planning Difficult to ascertain at this time Request HC Surrog/Guard Advoc?: Yes Eduardo Mills MD Jun 11, 2017 11:41
[2017-06-11 18:19] VITALS: BP 116/65; PULSE 74; RESP 18; TEMP 98.6; O2SAT 97
[2017-06-11 18:44] VITALS: BP_SYST 116; BP_SYST 151; BP_DIAS 84; BP_DIAS 85; PULSE 74; RESP 18
[2017-06-11] MEDS: LATANOPROST 0.005% OPHT SOLN 2.5 ML BTL EACH EYE SCH (21:00)
[2017-06-11] MEDS: QUEtiapine FUMARATE 100 MG TAB PO SCH (21:00)
[2017-06-11] MEDS: DONEPEZIL HCL 5 MG TAB PO SCH (21:00)
[2017-06-12] MEDS: MULTIVITAMIN TAB PO SCH (08:35)
[2017-06-12] MEDS: MULTIVITAMIN-OPHTHALMIC 1 TAB PO SCH (08:35)
[2017-06-12] MEDS: FERROUS SULFATE 325 MG (65 MG ELEMENTAL IRON) TAB PO SCH ×2 (08:35→20:55)
[2017-06-12] MEDS: APIXABAN 2.5 MG TABLET PO SCH ×2 (08:35→20:53)
[2017-06-12] MEDS: CHOLECALCIFEROL (VIT D3) 5000 UNIT CAP PO SCH (08:35)
[2017-06-12] MEDS: ASPIRIN EC 81 MG TABEC PO SCH (08:35)
[2017-06-12] MEDS: DIGOXIN 0.125 MG TAB PO SCH (08:35)
[2017-06-12] MEDS: METOPROLOL SUCCINATE 50 MG EXTENDED RELEASE TAB PO SCH (08:36)
[2017-06-12] MEDS: CYANOCOBALAMIN 1,000 MCG TAB PO SCH (08:36)
[2017-06-12] MEDS: DORZOLAMIDE 2% OPTH SOLN 200 DROP/10 ML BTLO EACH EYE SCH ×2 (08:36→20:55)
[2017-06-12] MEDS: CALCIUM/VITAMIN D 250 MG/125 U TAB PO SCH ×2 (08:36→20:53)
[2017-06-12] MEDS: QUEtiapine FUMARATE 25 MG TAB PO SCH ×2 (09:31→16:14)
[2017-06-12] MEDS: ACETAMINOPHEN 325 MG TAB PO PRN (12:15)
--- NOTE | 2017-06-12 13:27 | HHI.PYPN ---
Subjective Chief Complaint: patient demented with aggressive behavior at [facility] Remarks Patient seen in her room with nurse Kristi and medical student Leroy, chart review, patient discussed with nurse. Patient laying in bed calm pleasantly confused and disoriented. Though no behavior problems she is not screaming or yelling or profane or assaultive. It appears she had a fairly good night last night also. For now continue treatment Review of Systems Except as stated in HPI: all other systems reviewed are Neg Mental Status Examination Appearance: Appropriate (in hospital gown) Consciousness: Alert Orientation: Person Motor Activity: Normal gait (slight shuffling) Speech: Unremarkable Language: Adequate Fund of Knowledge: Inadequate Attention and Concentration: Easily Distracted Memory: Impaired Mood: Other (labile) Affect: Irritable Thought Process & Associations: Loose associations Thought Content: Other Delusion Type: None Suicidal Ideation: No Suicidal Plan: No Suicidal Intention: No Homicidal Ideation: No Homicidal Plan: No Homicidal Intention: No Insight: Poor Judgment: Poor Results Vitals/IOs Vital Signs Date Time Temp Pulse Resp B/P (MAP) Pulse Ox O2 Delivery O2 Flow Rate FiO2 06/11/17 18:44 74 18 151/84 (106) 116/85 (95) 06/11/17 18:19 98.6 97 Assessment & Plan Problem List: (1) ALZHEIMER'S DISEASE WITH LATE ONSET ICD Codes: G30.1 - ALZHEIMER'S DISEASE WITH LATE ONSET (2) DEMENTIA IN OTH DISEASES CLASSD ELSWHR W BEHAVIORAL DISTURB ICD Codes: F02.81 - DEMENTIA IN OTH DISEASES CLASSD ELSWHR W BEHAVIORAL DISTURB Assessment & Plan Estimated LOS: days this time the patient remains diffusely confused and demented. Though no behavior problems noted recently. Compliant medication. For now continue treatment Justification for Cont. Inpt. At this time patient decompensated placed in a lower level of care Discharge Planning Placement remains problematic Request HC Surrog/Guard Advoc?: Yes Eduardo Mills MD Jun 12, 2017 13:27
[2017-06-12 18:00] VITALS: BP 118/69; PULSE 74; RESP 18; TEMP 98; O2SAT 96
[2017-06-12] MEDS: QUEtiapine FUMARATE 100 MG TAB PO SCH (20:53)
[2017-06-12] MEDS: DONEPEZIL HCL 5 MG TAB PO SCH (20:54)
[2017-06-12] MEDS: LATANOPROST 0.005% OPHT SOLN 2.5 ML BTL EACH EYE SCH (21:00)
[2017-06-12] MEDS: hydrOXYzine HCL 50 MG TAB PO PRN (21:57)
[2017-06-13] MEDS: MULTIVITAMIN TAB PO SCH (08:41)
[2017-06-13] MEDS: DORZOLAMIDE 2% OPTH SOLN 200 DROP/10 ML BTLO EACH EYE SCH ×2 (08:41→21:00)
[2017-06-13] MEDS: FERROUS SULFATE 325 MG (65 MG ELEMENTAL IRON) TAB PO SCH ×2 (08:41→20:40)
[2017-06-13] MEDS: DIGOXIN 0.125 MG TAB PO SCH (08:42)
[2017-06-13] MEDS: MULTIVITAMIN-OPHTHALMIC 1 TAB PO SCH (08:42)
[2017-06-13] MEDS: APIXABAN 2.5 MG TABLET PO SCH ×2 (08:42→20:40)
[2017-06-13] MEDS: CALCIUM/VITAMIN D 250 MG/125 U TAB PO SCH ×2 (08:42→20:41)
[2017-06-13] MEDS: CHOLECALCIFEROL (VIT D3) 5000 UNIT CAP PO SCH (08:42)
[2017-06-13] MEDS: ASPIRIN EC 81 MG TABEC PO SCH (08:42)
[2017-06-13] MEDS: METOPROLOL SUCCINATE 50 MG EXTENDED RELEASE TAB PO SCH (08:43)
[2017-06-13] MEDS: CYANOCOBALAMIN 1,000 MCG TAB PO SCH (08:43)
[2017-06-13] MEDS: QUEtiapine FUMARATE 25 MG TAB PO SCH ×2 (10:46→15:29)
--- NOTE | 2017-06-13 15:21 | HHI.PYPN ---
Subjective Chief Complaint: patient demented with aggressive behavior at [facility]f Remarks Patient seen in day room with nurse Kristi, chart reviewed, patient discussed with nurse. She is somewhat calmer at the present time continues diffusely confused and disorganized. Both no profanity or agitation out of control behavior. Staff states patient slept fairly well last night also. For now continue treatment Review of Systems Except as stated in HPI: all other systems reviewed are Neg Mental Status Examination Appearance: Appropriate (in hospital gown) Consciousness: Alert Orientation: Person Motor Activity: Normal gait (slight shuffling) Speech: Unremarkable Language: Adequate Fund of Knowledge: Inadequate Attention and Concentration: Easily Distracted Memory: Impaired Mood: Other (labile) Affect: Irritable Thought Process & Associations: Loose associations Thought Content: Other Delusion Type: None Suicidal Ideation: No Suicidal Plan: No Suicidal Intention: No Homicidal Ideation: No Homicidal Plan: No Homicidal Intention: No Insight: Poor Judgment: Poor Results Vitals/IOs Vital Signs Date Time Temp Pulse Resp B/P (MAP) Pulse Ox O2 Delivery O2 Flow Rate FiO2 06/12/17 18:00 98.0 74 18 118/69 (85) 96 Intake and Output 06/13/17 06/13/17 06/13/17 07:59 15:59 23:59 Intake Total 0 ml Balance 0 ml Assessment & Plan Problem List: (1) ALZHEIMER'S DISEASE WITH LATE ONSET ICD Codes: G30.1 - ALZHEIMER'S DISEASE WITH LATE ONSET (2) DEMENTIA IN OTH DISEASES CLASSD ELSWHR W BEHAVIORAL DISTURB ICD Codes: F02.81 - DEMENTIA IN OTH DISEASES CLASSD ELSWHR W BEHAVIORAL DISTURB Assessment & Plan Estimated LOS: days patient continues demented confused. Though no significant behavior problems at this time. It appears behavior was under fairly good control last night also. For now continue treatment Justification for Cont. Inpt. At this time patient will decompensate a placed on lower level of care Discharge Planning Placement remains problematic Request HC Surrog/Guard Advoc?: Yes Eduardo Mills MD Jun 13, 2017 15:21
[2017-06-13] MEDS: hydrOXYzine HCL 50 MG TAB PO PRN ×2 (15:29→20:42)
[2017-06-13] MEDS: QUEtiapine FUMARATE 100 MG TAB PO SCH (20:40)
[2017-06-13] MEDS: DONEPEZIL HCL 5 MG TAB PO SCH (20:42)
[2017-06-13] MEDS: LATANOPROST 0.005% OPHT SOLN 2.5 ML BTL EACH EYE SCH (21:00)
[2017-06-14 06:41] VITALS: BP 135/70; PULSE 71; RESP 16; TEMP 97.8; O2SAT 97
[2017-06-14] MEDS: APIXABAN 2.5 MG TABLET PO SCH ×2 (10:16→21:39)
[2017-06-14] MEDS: CALCIUM/VITAMIN D 250 MG/125 U TAB PO SCH ×2 (10:16→21:00)
[2017-06-14] MEDS: CYANOCOBALAMIN 1,000 MCG TAB PO SCH (10:16)
[2017-06-14] MEDS: METOPROLOL SUCCINATE 50 MG EXTENDED RELEASE TAB PO SCH (10:16)
[2017-06-14] MEDS: MULTIVITAMIN-OPHTHALMIC 1 TAB PO SCH (10:17)
[2017-06-14] MEDS: DIGOXIN 0.125 MG TAB PO SCH (10:17)
[2017-06-14] MEDS: FERROUS SULFATE 325 MG (65 MG ELEMENTAL IRON) TAB PO SCH ×2 (10:17→21:38)
[2017-06-14] MEDS: ASPIRIN EC 81 MG TABEC PO SCH (10:18)
[2017-06-14] MEDS: MULTIVITAMIN TAB PO SCH (10:18)
[2017-06-14] MEDS: CHOLECALCIFEROL (VIT D3) 5000 UNIT CAP PO SCH (10:19)
[2017-06-14] MEDS: QUEtiapine FUMARATE 25 MG TAB PO SCH ×2 (10:19→16:55)
[2017-06-14] MEDS: DORZOLAMIDE 2% OPTH SOLN 200 DROP/10 ML BTLO EACH EYE SCH ×2 (10:20→21:00)
--- NOTE | 2017-06-14 11:16 | HHI.PYPN ---
Subjective Chief Complaint: patient demented with aggressive behavior at [facility] Remarks Patient seen in day room with nurse Vonnie, chart reviewed, patient discussed with nurse. Patient compliant with medications. Patient somewhat calm today continues diffusely confused. Staff states patient slept about 6 hours last night. There is less behavioral issues last night. For now continue treatment Review of Systems Except as stated in HPI: all other systems reviewed are Neg Mental Status Examination Appearance: Appropriate (in hospital gown) Consciousness: Alert Orientation: Person Motor Activity: Normal gait (slight shuffling) Speech: Unremarkable Language: Adequate Fund of Knowledge: Inadequate Attention and Concentration: Easily Distracted Memory: Impaired Mood: Other (labile) Affect: Irritable Thought Process & Associations: Loose associations Thought Content: Other Delusion Type: None Suicidal Ideation: No Suicidal Plan: No Suicidal Intention: No Homicidal Ideation: No Homicidal Plan: No Homicidal Intention: No Insight: Poor Judgment: Poor Results Vitals/IOs Vital Signs Date Time Temp Pulse Resp B/P (MAP) Pulse Ox O2 Delivery O2 Flow Rate FiO2 06/14/17 06:41 97.8 71 16 135/70 (91) 97 Intake and Output 06/14/17 06/14/17 06/15/17 08:00 16:00 00:00 Intake Total 0 ml 120 ml Balance 0 ml 120 ml Assessment & Plan Problem List: (1) ALZHEIMER'S DISEASE WITH LATE ONSET ICD Codes: G30.1 - ALZHEIMER'S DISEASE WITH LATE ONSET (2) DEMENTIA IN OTH DISEASES CLASSD ELSWHR W BEHAVIORAL DISTURB ICD Codes: F02.81 - DEMENTIA IN OTH DISEASES CLASSD ELSWHR W BEHAVIORAL DISTURB Assessment & Plan Estimated LOS: days she continues confused and demented, slept somewhat better , less behavioral issues last night Justification for Cont. Inpt. At this time patient would decompensated placed in the lower level of care Discharge Planning Placement may become problematic Request HC Surrog/Guard Advoc?: Yes Eduardo Mills MD Jun 14, 2017 11:16
[2017-06-14] MEDS: ACETAMINOPHEN 325 MG TAB PO PRN (13:17)
[2017-06-14 17:31] VITALS: BP 154/78; PULSE 63; RESP 17; TEMP 98.4; O2SAT 100
[2017-06-14] MEDS: hydrOXYzine HCL 50 MG TAB PO PRN (19:57)
[2017-06-14] MEDS: QUEtiapine FUMARATE 100 MG TAB PO SCH (19:57)
[2017-06-14] MEDS: LATANOPROST 0.005% OPHT SOLN 2.5 ML BTL EACH EYE SCH (21:00)
[2017-06-14] MEDS: DONEPEZIL HCL 5 MG TAB PO SCH (21:00)
[2017-06-15] MEDS: ACETAMINOPHEN 325 MG TAB PO PRN (04:30)
[2017-06-15] MEDS: hydrOXYzine HCL 50 MG TAB PO PRN (04:30)
[2017-06-15] MEDS: DORZOLAMIDE 2% OPTH SOLN 200 DROP/10 ML BTLO EACH EYE SCH ×3 (09:00→20:45)
[2017-06-15] MEDS: FERROUS SULFATE 325 MG (65 MG ELEMENTAL IRON) TAB PO SCH ×2 (09:48→20:36)
[2017-06-15] MEDS: CALCIUM/VITAMIN D 250 MG/125 U TAB PO SCH ×2 (09:48→20:36)
[2017-06-15] MEDS: APIXABAN 2.5 MG TABLET PO SCH ×2 (09:48→20:37)
[2017-06-15] MEDS: DIGOXIN 0.125 MG TAB PO SCH (09:48)
[2017-06-15] MEDS: MULTIVITAMIN-OPHTHALMIC 1 TAB PO SCH (09:48)
[2017-06-15] MEDS: METOPROLOL SUCCINATE 50 MG EXTENDED RELEASE TAB PO SCH (09:48)
[2017-06-15] MEDS: MULTIVITAMIN TAB PO SCH (09:48)
[2017-06-15] MEDS: CHOLECALCIFEROL (VIT D3) 5000 UNIT CAP PO SCH (09:48)
[2017-06-15] MEDS: CYANOCOBALAMIN 1,000 MCG TAB PO SCH (09:48)
[2017-06-15] MEDS: ASPIRIN EC 81 MG TABEC PO SCH (09:49)
[2017-06-15] MEDS: QUEtiapine FUMARATE 25 MG TAB PO SCH ×2 (09:57→16:00)
--- NOTE | 2017-06-15 11:34 | HHI.PYPN ---
Subjective Chief Complaint: patient demented with aggressive behavior at [facility] Remarks Patient seen in day room with nurse Vonnie and medical student Leroy, chart reviewed , patient discussed with nurse. He did not sleep last night did need multiple when necessary's. Was loud profane and scratching at staff. Today patient remembers none of that. She continues diffusely confused. At this time will increase at bedtime Seroquel to 150 mg Review of Systems Except as stated in HPI: all other systems reviewed are Neg Mental Status Examination Appearance: Appropriate (in hospital gown) Consciousness: Alert Orientation: Person Motor Activity: Normal gait (slight shuffling) Speech: Unremarkable Language: Adequate Fund of Knowledge: Inadequate Attention and Concentration: Easily Distracted Memory: Impaired Mood: Other (labile) Affect: Irritable Thought Process & Associations: Loose associations Thought Content: Other Delusion Type: None Suicidal Ideation: No Suicidal Plan: No Suicidal Intention: No Homicidal Ideation: No Homicidal Plan: No Homicidal Intention: No Insight: Poor Judgment: Poor Results Vitals/IOs Vital Signs Date Time Temp Pulse Resp B/P (MAP) Pulse Ox O2 Delivery O2 Flow Rate FiO2 06/14/17 17:31 98.4 63 17 154/78 (103) 100 Intake and Output 06/15/17 06/15/17 06/16/17 08:00 16:00 00:00 Intake Total 240 ml Balance 240 ml Assessment & Plan Problem List: (1) ALZHEIMER'S DISEASE WITH LATE ONSET ICD Codes: G30.1 - ALZHEIMER'S DISEASE WITH LATE ONSET (2) DEMENTIA IN OTH DISEASES CLASSD ELSWHR W BEHAVIORAL DISTURB ICD Codes: F02.81 - DEMENTIA IN OTH DISEASES CLASSD ELSWHR W BEHAVIORAL DISTURB Assessment & Plan Estimated LOS: days she continues diffusely confused disoriented, showed increased behavioral issues last night and through the night. She medication adjustment above Justification for Cont. Inpt. Time patient with decompensated placed a lower level of care Discharge Planning Placement May become problematic Request HC Surrog/Guard Advoc?: Yes Eduardo Mills MD Jun 15, 2017 11:34
[2017-06-15] MEDS: QUEtiapine FUMARATE 100 MG TAB PO SCH (20:36)
[2017-06-15] MEDS: DONEPEZIL HCL 5 MG TAB PO SCH (20:37)
[2017-06-15] MEDS: LATANOPROST 0.005% OPHT SOLN 2.5 ML BTL EACH EYE SCH (20:44)
[2017-06-16 05:54] VITALS: BP 129/61; PULSE 60; RESP 16; TEMP 97.8; O2SAT 99
[2017-06-16] MEDS: MULTIVITAMIN-OPHTHALMIC 1 TAB PO SCH (08:22)
[2017-06-16] MEDS: MULTIVITAMIN TAB PO SCH (08:23)
[2017-06-16] MEDS: FERROUS SULFATE 325 MG (65 MG ELEMENTAL IRON) TAB PO SCH ×2 (08:23→20:40)
[2017-06-16] MEDS: DIGOXIN 0.125 MG TAB PO SCH (08:24)
[2017-06-16] MEDS: ASPIRIN EC 81 MG TABEC PO SCH (08:24)
[2017-06-16] MEDS: CYANOCOBALAMIN 1,000 MCG TAB PO SCH (08:24)
[2017-06-16] MEDS: METOPROLOL SUCCINATE 50 MG EXTENDED RELEASE TAB PO SCH (08:24)
[2017-06-16] MEDS: CHOLECALCIFEROL (VIT D3) 5000 UNIT CAP PO SCH (08:24)
[2017-06-16] MEDS: APIXABAN 2.5 MG TABLET PO SCH ×2 (08:25→20:39)
[2017-06-16] MEDS: CALCIUM/VITAMIN D 250 MG/125 U TAB PO SCH ×2 (08:28→20:40)
[2017-06-16] MEDS: DORZOLAMIDE 2% OPTH SOLN 200 DROP/10 ML BTLO EACH EYE SCH ×2 (08:29→20:39)
[2017-06-16] MEDS: QUEtiapine FUMARATE 25 MG TAB PO SCH ×2 (10:16→16:10)
[2017-06-16] MEDS: ACETAMINOPHEN 325 MG TAB PO PRN (14:16)
--- NOTE | 2017-06-16 15:37 | HHI.PYPN ---
Subjective Chief Complaint: patient demented with aggressive behavior at intermediate Remarks Pt seen and discussed with staff. she has been labile in mood vacillating between pleasant courtesies and vulgar language. She is intrusive with peers and requires frequent redirection. she is compliant with medications but gets agitated with care. Mental Status Examination Appearance: Appropriate (in hospital gown) Consciousness: Alert Orientation: Person Motor Activity: Normal gait (slight shuffling) Speech: Unremarkable Language: Adequate Fund of Knowledge: Inadequate Attention and Concentration: Easily Distracted Memory: Impaired Mood: Other (labile) Affect: Irritable Thought Process & Associations: Loose associations Thought Content: Other Delusion Type: None Suicidal Ideation: No Suicidal Plan: No Suicidal Intention: No Homicidal Ideation: No Homicidal Plan: No Homicidal Intention: No Insight: Poor Judgment: Poor Results Vitals/IOs Vital Signs Date Time Temp Pulse Resp B/P (MAP) Pulse Ox O2 Delivery O2 Flow Rate FiO2 06/16/17 05:54 97.8 60 16 129/61 (83) 99 Assessment & Plan Problem List: (1) ALZHEIMER'S DISEASE WITH LATE ONSET ICD Codes: G30.1 - ALZHEIMER'S DISEASE WITH LATE ONSET (2) DEMENTIA IN OTH DISEASES CLASSD ELSWHR W BEHAVIORAL DISTURB ICD Codes: F02.81 - DEMENTIA IN OTH DISEASES CLASSD ELSWHR W BEHAVIORAL DISTURB Assessment & Plan continue current tx plan. Estimated LOS: days Justification for Cont. Inpt. impairments in safety Request HC Surrog/Guard Advoc?: Yes Bhargavi Su MD Jun 16, 2017 15:37
[2017-06-16] MEDS: QUEtiapine FUMARATE 100 MG TAB PO SCH (20:39)
[2017-06-16] MEDS: LATANOPROST 0.005% OPHT SOLN 2.5 ML BTL EACH EYE SCH (20:39)
[2017-06-16] MEDS: DONEPEZIL HCL 5 MG TAB PO SCH (20:40)
[2017-06-17 05:43] VITALS: BP 132/62; PULSE 71; RESP 17; TEMP 98.1; O2SAT 98
[2017-06-17] MEDS: CALCIUM/VITAMIN D 250 MG/125 U TAB PO SCH ×2 (08:23→21:21)
[2017-06-17] MEDS: METOPROLOL SUCCINATE 50 MG EXTENDED RELEASE TAB PO SCH (08:23)
[2017-06-17] MEDS: MULTIVITAMIN-OPHTHALMIC 1 TAB PO SCH (08:23)
[2017-06-17] MEDS: MULTIVITAMIN TAB PO SCH (08:24)
[2017-06-17] MEDS: ASPIRIN EC 81 MG TABEC PO SCH (08:24)
[2017-06-17] MEDS: FERROUS SULFATE 325 MG (65 MG ELEMENTAL IRON) TAB PO SCH ×2 (08:24→21:22)
[2017-06-17] MEDS: APIXABAN 2.5 MG TABLET PO SCH ×2 (08:24→21:21)
[2017-06-17] MEDS: CYANOCOBALAMIN 1,000 MCG TAB PO SCH (08:24)
[2017-06-17] MEDS: DIGOXIN 0.125 MG TAB PO SCH (08:24)
[2017-06-17] MEDS: CHOLECALCIFEROL (VIT D3) 5000 UNIT CAP PO SCH (08:24)
[2017-06-17] MEDS: DORZOLAMIDE 2% OPTH SOLN 200 DROP/10 ML BTLO EACH EYE SCH ×2 (08:30→21:22)
[2017-06-17] MEDS: QUEtiapine FUMARATE 25 MG TAB PO SCH ×2 (09:00→16:13)
[2017-06-17] MEDS: hydrOXYzine HCL 50 MG TAB PO PRN ×2 (12:47→12:58)
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
[2017-06-17] MEDS: QUEtiapine FUMARATE 100 MG TAB PO SCH (20:03)
[2017-06-17] MEDS: LATANOPROST 0.005% OPHT SOLN 2.5 ML BTL EACH EYE SCH (21:00)
[2017-06-17] MEDS: DONEPEZIL HCL 5 MG TAB PO SCH (21:00)
[2017-06-17] MEDS: ACETAMINOPHEN 325 MG TAB PO PRN (21:29)
[2017-06-18 06:05] VITALS: BP 106/57; PULSE 76; RESP 18; TEMP 97.8; O2SAT 99
[2017-06-18] MEDS: APIXABAN 2.5 MG TABLET PO SCH ×3 (08:22→21:00)
[2017-06-18] MEDS: ASPIRIN EC 81 MG TABEC PO SCH (08:22)
[2017-06-18] MEDS: FERROUS SULFATE 325 MG (65 MG ELEMENTAL IRON) TAB PO SCH ×3 (08:22→21:00)
[2017-06-18] MEDS: DORZOLAMIDE 2% OPTH SOLN 200 DROP/10 ML BTLO EACH EYE SCH ×2 (08:22→21:00)
[2017-06-18] MEDS: CYANOCOBALAMIN 1,000 MCG TAB PO SCH (08:23)
[2017-06-18] MEDS: MULTIVITAMIN-OPHTHALMIC 1 TAB PO SCH (08:23)
[2017-06-18] MEDS: DIGOXIN 0.125 MG TAB PO SCH (08:23)
[2017-06-18] MEDS: CHOLECALCIFEROL (VIT D3) 5000 UNIT CAP PO SCH (08:23)
[2017-06-18] MEDS: MULTIVITAMIN TAB PO SCH (08:23)
[2017-06-18] MEDS: CALCIUM/VITAMIN D 250 MG/125 U TAB PO SCH ×3 (08:23→21:00)
[2017-06-18] MEDS: METOPROLOL SUCCINATE 50 MG EXTENDED RELEASE TAB PO SCH (08:23)
[2017-06-18] MEDS: QUEtiapine FUMARATE 25 MG TAB PO SCH ×2 (09:13→17:38)
[2017-06-18] MEDS: hydrOXYzine HCL 50 MG TAB PO PRN ×2 (10:15→16:50)
--- NOTE | 2017-06-18 13:17 | HHI.PYPN ---
Subjective Chief Complaint: patient demented with aggressive behavior at [facility] Remarks Seen in the day room, chart reviewed, patient discussed with nurse. It appears patient did not sleep well last night. Patient is been quite arousable this morning she is coming more more profane loud and irritable or is a humerus component to her statements. Though she is loud and at times intrusive. Will increase daytime Seroquel to 3 times a day 81 and 6. Review of Systems Except as stated in HPI: all other systems reviewed are Neg Mental Status Examination Appearance: Appropriate (in hospital gown) Consciousness: Alert Orientation: Person Motor Activity: Normal gait (slight shuffling) Speech: Unremarkable Language: Adequate Fund of Knowledge: Inadequate Attention and Concentration: Easily Distracted Memory: Impaired Mood: Other (labile) Affect: Irritable Thought Process & Associations: Loose associations Thought Content: Bizarre thinking Delusion Type: None Suicidal Ideation: No Suicidal Plan: No Suicidal Intention: No Homicidal Ideation: No Homicidal Plan: No Homicidal Intention: No Insight: Poor Judgment: Poor Results Vitals/IOs Vital Signs Date Time Temp Pulse Resp B/P (MAP) Pulse Ox O2 Delivery O2 Flow Rate FiO2 06/18/17 06:05 97.8 76 18 106/57 (73) 99 Intake and Output 06/18/17 06/18/17 06/19/17 08:00 16:00 00:00 Intake Total 0 ml 0 ml Balance 0 ml 0 ml Assessment & Plan Problem List: (1) ALZHEIMER'S DISEASE WITH LATE ONSET ICD Codes: G30.1 - ALZHEIMER'S DISEASE WITH LATE ONSET (2) DEMENTIA IN OTH DISEASES CLASSD ELSWHR W BEHAVIORAL DISTURB ICD Codes: F02.81 - DEMENTIA IN OTH DISEASES CLASSD ELSWHR W BEHAVIORAL DISTURB Assessment & Plan Estimated LOS: days patient continues markedly demented confused profane intrusive irritating but at times somewhat humorous. Please see medication adjustments about Justification for Cont. Inpt. With the same patient decompensated placed a lower level of care Discharge Planning To be determined Request HC Surrog/Guard Advoc?: Yes Eduardo Mills MD Jun 18, 2017 13:17
[2017-06-18] MEDS ORDERED: HALOPERIDOL LACTATE 5 MG/ML AMP ONE (14:01)
[2017-06-18] MEDS ORDERED: diphenhydrAMINE HCL 50 MG/ML VIAL ONE (14:01)
[2017-06-18] MEDS ORDERED: diphenhydrAMINE HCL 50 MG/ML VIAL IM STA (14:06)
[2017-06-18] MEDS ORDERED: HALOPERIDOL LACTATE 5 MG/ML AMP IM STA (14:06)
[2017-06-18] MEDS: QUEtiapine FUMARATE 100 MG TAB PO SCH (20:35)
[2017-06-18] MEDS: DONEPEZIL HCL 5 MG TAB PO SCH ×2 (20:38→21:00)
[2017-06-18] MEDS: LATANOPROST 0.005% OPHT SOLN 2.5 ML BTL EACH EYE SCH (21:00)
[2017-06-19] MEDS: hydrOXYzine HCL 50 MG TAB PO PRN ×2 (00:15→20:14)
[2017-06-19] MEDS: QUEtiapine FUMARATE 25 MG TAB PO SCH ×3 (08:00→17:19)
[2017-06-19] MEDS: DORZOLAMIDE 2% OPTH SOLN 200 DROP/10 ML BTLO EACH EYE SCH ×2 (08:30→21:00)
[2017-06-19] MEDS: DIGOXIN 0.125 MG TAB PO SCH (08:30)
[2017-06-19] MEDS: MULTIVITAMIN TAB PO SCH (08:30)
[2017-06-19] MEDS: CHOLECALCIFEROL (VIT D3) 5000 UNIT CAP PO SCH (08:30)
[2017-06-19] MEDS: CYANOCOBALAMIN 1,000 MCG TAB PO SCH (08:30)
[2017-06-19] MEDS: METOPROLOL SUCCINATE 50 MG EXTENDED RELEASE TAB PO SCH (08:30)
[2017-06-19] MEDS: ASPIRIN EC 81 MG TABEC PO SCH (08:30)
[2017-06-19] MEDS: MULTIVITAMIN-OPHTHALMIC 1 TAB PO SCH (08:30)
[2017-06-19 08:48] VITALS: BP 101/61; PULSE 75; RESP 16
--- NOTE | 2017-06-19 12:55 | HHI.PYPN ---
Subjective Chief Complaint: patient demented with aggressive behavior at [facility] Remarks Patient seen in day room with nurse Barajas, chart review, patient discussed with nurse. Patient slept better last night though she continues to be somewhat irritable labile. She is did refuse some of the medications though she is taking her Seroquel Review of Systems Except as stated in HPI: all other systems reviewed are Neg Mental Status Examination Appearance: Appropriate (in hospital gown) Consciousness: Alert Orientation: Person Motor Activity: Normal gait (slight shuffling) Speech: Unremarkable Language: Adequate Fund of Knowledge: Inadequate Attention and Concentration: Easily Distracted Memory: Impaired Mood: Other (labile) Affect: Irritable Thought Process & Associations: Loose associations Thought Content: Bizarre thinking Delusion Type: None Suicidal Ideation: No Suicidal Plan: No Suicidal Intention: No Homicidal Ideation: No Homicidal Plan: No Homicidal Intention: No Insight: Poor Judgment: Poor Results Vitals/IOs Vital Signs Date Time Temp Pulse Resp B/P (MAP) Pulse Ox O2 Delivery O2 Flow Rate FiO2 06/19/17 08:48 75 16 101/61 (74) 06/18/17 06:05 97.8 99 Intake and Output 06/19/17 06/19/17 06/20/17 08:00 16:00 00:00 Intake Total 120 ml Balance 120 ml Assessment & Plan Problem List: (1) ALZHEIMER'S DISEASE WITH LATE ONSET ICD Codes: G30.1 - ALZHEIMER'S DISEASE WITH LATE ONSET (2) DEMENTIA IN OTH DISEASES CLASSD ELSWHR W BEHAVIORAL DISTURB ICD Codes: F02.81 - DEMENTIA IN OTH DISEASES CLASSD ELSWHR W BEHAVIORAL DISTURB Assessment & Plan Estimated LOS: days patient remains confused disoriented demented, labile with times profane. She showing some intermittent noncompliance of medication at this time Justification for Cont. Inpt. At this time patient will decompensate of place to the lower level of care Discharge Planning Placement remains problematic Request HC Surrog/Guard Advoc?: Yes Eduardo Mills MD Jun 19, 2017 12:55
[2017-06-19 17:42] VITALS: BP 128/62; PULSE 76; RESP 16; TEMP 97.4; O2SAT 96
[2017-06-19] MEDS: QUEtiapine FUMARATE 100 MG TAB PO SCH (20:12)
[2017-06-19] MEDS: FERROUS SULFATE 325 MG (65 MG ELEMENTAL IRON) TAB PO SCH (20:12)
[2017-06-19] MEDS: APIXABAN 2.5 MG TABLET PO SCH (20:13)
[2017-06-19] MEDS: CALCIUM/VITAMIN D 250 MG/125 U TAB PO SCH (20:13)
[2017-06-19] MEDS: LATANOPROST 0.005% OPHT SOLN 2.5 ML BTL EACH EYE SCH (21:00)
[2017-06-20 07:52] VITALS: BP 129/71; PULSE 80
[2017-06-20] MEDS: MULTIVITAMIN-OPHTHALMIC 1 TAB PO SCH (08:48)
[2017-06-20] MEDS: QUEtiapine FUMARATE 25 MG TAB PO SCH ×3 (08:48→17:54)
[2017-06-20] MEDS: ASPIRIN EC 81 MG TABEC PO SCH (08:49)
[2017-06-20] MEDS: CYANOCOBALAMIN 1,000 MCG TAB PO SCH (08:49)
[2017-06-20] MEDS: MULTIVITAMIN TAB PO SCH (08:49)
[2017-06-20] MEDS: LATANOPROST 0.005% OPHT SOLN 2.5 ML BTL EACH EYE SCH (08:51)
[2017-06-20] MEDS: DIGOXIN 0.125 MG TAB PO SCH (08:51)
[2017-06-20] MEDS: METOPROLOL SUCCINATE 50 MG EXTENDED RELEASE TAB PO SCH (08:51)
[2017-06-20] MEDS: CHOLECALCIFEROL (VIT D3) 5000 UNIT CAP PO SCH (08:51)
[2017-06-20] MEDS: FERROUS SULFATE 325 MG (65 MG ELEMENTAL IRON) TAB PO SCH ×3 (08:51→21:00)
[2017-06-20] MEDS: CALCIUM/VITAMIN D 250 MG/125 U TAB PO SCH ×3 (08:51→21:00)
[2017-06-20] MEDS: APIXABAN 2.5 MG TABLET PO SCH ×2 (08:51→20:54)
[2017-06-20] MEDS: hydrOXYzine HCL 50 MG TAB PO PRN ×2 (08:51→21:02)
[2017-06-20] MEDS: DORZOLAMIDE 2% OPTH SOLN 200 DROP/10 ML BTLO EACH EYE SCH ×2 (08:52→21:00)
--- NOTE | 2017-06-20 12:19 | HHI.PYPN ---
Subjective Chief Complaint: patient demented with aggressive behavior at [facility] Remarks Focus patient's daughter Sade over the phone today. We discussed her pending discharge tomorrow to [facility] in [place]. We discussed diagnosis treatment medication and prognosis. Radha appeared satisfied with and agreed with our recommendations. Patient slept well yesterday is overall calm today. The plan then will discharge patient tomorrow to above facility. With Rx 1 month follow -up with services through that facility Review of Systems Except as stated in HPI: all other systems reviewed are Neg Mental Status Examination Appearance: Appropriate (in hospital gown) Consciousness: Alert Orientation: Person Motor Activity: Normal gait (slight shuffling) Speech: Unremarkable Language: Adequate Fund of Knowledge: Inadequate Attention and Concentration: Easily Distracted Memory: Impaired Mood: Other (labile) Affect: Irritable Thought Process & Associations: Loose associations Thought Content: Bizarre thinking Delusion Type: None Suicidal Ideation: No Suicidal Plan: No Suicidal Intention: No Homicidal Ideation: No Homicidal Plan: No Homicidal Intention: No Insight: Poor Judgment: Poor Results Vitals/IOs Vital Signs Date Time Temp Pulse Resp B/P (MAP) Pulse Ox O2 Delivery O2 Flow Rate FiO2 06/20/17 07:52 80 129/71 (90) 06/19/17 17:42 97.4 16 96 Intake and Output 06/20/17 06/20/17 06/21/17 08:00 16:00 00:00 Intake Total 120 ml Balance 120 ml Assessment & Plan Problem List: (1) ALZHEIMER'S DISEASE WITH LATE ONSET ICD Codes: G30.1 - ALZHEIMER'S DISEASE WITH LATE ONSET (2) DEMENTIA IN OTH DISEASES CLASSD ELSWHR W BEHAVIORAL DISTURB ICD Codes: F02.81 - DEMENTIA IN OTH DISEASES CLASSD ELSWHR W BEHAVIORAL DISTURB Assessment & Plan Estimated LOS: days patient remains confused demented though today is calm, did sleep well last night. Compliant medications. Anticipate discharge tomorrow to [facility] in [place] Justification for Cont. Inpt. At this time patient will decompensate if not placed in an appropriate level of care Discharge Planning Patient to be discharged tomorrow to [facility] in [place] Request HC Surrog/Guard Advoc?: Yes Eduardo Mills MD Jun 20, 2017 12:19
[2017-06-20 18:00] VITALS: BP 129/62; PULSE 77; RESP 16; TEMP 98.2; O2SAT 97
[2017-06-20] MEDS: DONEPEZIL HCL 5 MG TAB PO SCH (20:54)
[2017-06-20] MEDS: QUEtiapine FUMARATE 100 MG TAB PO SCH (20:55)
[2017-06-21] MEDS: QUEtiapine FUMARATE 25 MG TAB PO SCH ×2 (08:00→13:00)
[2017-06-21] MEDS: DIGOXIN 0.125 MG TAB PO SCH (08:05)
[2017-06-21] MEDS: APIXABAN 2.5 MG TABLET PO SCH (08:05)
[2017-06-21] MEDS: FERROUS SULFATE 325 MG (65 MG ELEMENTAL IRON) TAB PO SCH (08:05)
[2017-06-21] MEDS: DORZOLAMIDE 2% OPTH SOLN 200 DROP/10 ML BTLO EACH EYE SCH (08:06)
[2017-06-21] MEDS: ASPIRIN EC 81 MG TABEC PO SCH (08:06)
[2017-06-21] MEDS: CALCIUM/VITAMIN D 250 MG/125 U TAB PO SCH (08:06)
[2017-06-21] MEDS: MULTIVITAMIN TAB PO SCH (08:07)
[2017-06-21] MEDS: CYANOCOBALAMIN 1,000 MCG TAB PO SCH (08:07)
[2017-06-21] MEDS: METOPROLOL SUCCINATE 50 MG EXTENDED RELEASE TAB PO SCH (08:07)
[2017-06-21] MEDS: MULTIVITAMIN-OPHTHALMIC 1 TAB PO SCH (08:08)
[2017-06-21] MEDS: CHOLECALCIFEROL (VIT D3) 5000 UNIT CAP PO SCH (08:09)
[2017-06-21] MEDS ORDERED: METO50TA PO (09:27)
[2017-06-21] MEDS ORDERED: VITA10002 PO (09:27)
[2017-06-21] MEDS ORDERED: OMEGCAP29 PO (09:27)
[2017-06-21] MEDS ORDERED: CALCTAB PO (09:27)
[2017-06-21] MEDS ORDERED: DONE10TA7 PO (09:27)
[2017-06-21] MEDS ORDERED: SERO25TA PO (09:27)
[2017-06-21] MEDS ORDERED: FERR324T4 PO (09:27)
[2017-06-21] MEDS ORDERED: LATA.005%O EACH EYE (09:27)
[2017-06-21] MEDS ORDERED: MULT-65 PO (09:27)
[2017-06-21] MEDS ORDERED: LORA-392 PO (09:27)
[2017-06-21] MEDS ORDERED: DIGO0.12 PO (09:27)
[2017-06-21] MEDS ORDERED: APIX2.5T PO (09:27)
[2017-06-21] MEDS ORDERED: DORZ2SOL EACH EYE (09:27)
[2017-06-21] MEDS ORDERED: QUET1TAB8 PO (09:27)
[2017-06-21] MEDS ORDERED: ASPI1TAB57 PO (09:27)
--- NOTE | 2017-06-21 09:32 | HHI.DS ---
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 Patient seen screened in the ED urine toxicology negative bladder: Negative. At the present time patient sitting quietly in chair in dayroom. Patient seen with staff. She is alert confused low disorganized all 4 spheres white female appears slightly younger than her stated age. She is calm and pleasant with me has no idea about the behaviors that occurred leading to this hospitalization. She does denies suicidality voices or visions. Denies any prior psychiatric history. Denies any physical or sexual abuse. Denies any mental illness in the family. Denies any alcohol or drug use. States she has been but is , does not remember the number of children that she yes. I also spoke with patient's daughter Karrie at [phone]. She verifies 4-5 year plus history of increasing dementia. That she has been in this family type home for about 4 years of increasing behavior issues aggressive threatening behavior is more towards late afternoon into the evening. This is to the point where the owners of the [facility] are unwilling to have patient return there. Karrie is willing to become health care surrogate. It appears she already has CANDY. She will discuss with her siblings CODE STATUS. It is noted that patient had been on Seroquel 50 mg 3 times a day. Will change that to 50 mg5 PM and 10 PM and observe behaviors over the next 1-2 days. The patient is a 86-year-old woman, she has history of dementia, she was brought on the Garvey act due to aggressive behavior and also with suicidal ideation with a plan of killing herself or killing a staff member at her residential facility. Patient was consulted to me for second opinion. On psychiatric evaluation the patient is found in the recreational area of the unit. He is calm, superficially cooperative, confused and disoriented. He says that the reason she is here is because she came to play with the girls and boys. She said that she has been looking for her father and her mother, but she cannot find them. Patient doesn't recognize what she is, she doesn't know the date, she says that she is here in the playroom. Patient is very labile, start crying during the evaluation asking for her parents and asking why she looks so old, "why I looked that I am in the 50s". She denies suicidal and homicidal ideation, she denies visual and auditory hallucinations. As per staff members, the patient has been disruptive in the unit, a little bit agitated. Tobacco Use In Past 30 Days: No Tobacco Past 30 Days Alcohol Use: Monthly or Less Hospital Course Patient's hospital course was significant for patients continued cognitive deficits confusion, also for her sundowning behaviors irritability intrusiveness and marked use of profanity. Is also some significant insomnia early on in her admission. With adjustments of the medication patient sleep is markedly improved. Her bouts of this behavior irritability and resistance to treatment have been managed and frequency and intensity and duration. She is more easily redirectable. She did not sleep well last night. This time I feel patient respect some benefit of this hospitalization. There is a bed available at [facility] in [place]. There ready to take her today. Patient to be discharged today to that facility with Rx 1 month to follow-up with services through that facility Results Blood Pressure 129 / 62 Vital Signs Date Time Temp Pulse Resp B/P (MAP) Pulse Ox O2 Delivery O2 Flow Rate FiO2 06/20/17 18:00 98.2 77 16 129/62 (84) 97 Laboratory Results Test 05/26/17 07:33 Cholesterol Level 109 MG/DL (120-200) HDL Cholesterol 48.7 MG/DL (40.0-60.0) Hemoglobin A1c 4.9 % (4.3-6.0) LDL Cholesterol 49 MG/DL (0-99) Triglycerides Level 59 MG/DL (42-150) Summary of Procedures None done Imaging Last Impressions Head CT 06/06/17 0000 Signed Impressions: Service Date/Time: Tuesday, June 06, 2017 19:33 - CONCLUSION: Chronic and small vessel ischemic changes without any evidence for acute hemorrhage or mass effect. Prudence Bautista MD Carotid Artery Ultrasound 06/05/17 0000 Signed Impressions: Service Date/Time: Monday, June 05, 2017 18:17 - CONCLUSION: 1. Mild visible plaque formation in the carotid arteries bilaterally without hemodynamically significant stenosis. Khris Recinos MD Maxillofacial CT 06/04/17 2217 Signed Impressions: Service Date/Time: Sunday, June 04, 2017 22:10 - CONCLUSION: 1. No acute findings. Khris Recinos MD Pending results at discharge: No Medications # of Antipsychotic meds at D/C: 1 Approp Antipsych med options 1 - Minimum of three failed multiple trials of monotherapy. 2 - Documented plan to taper to monotherapy due to previous use of multiple meds OR cross-taper in progress at D/C. 3 - Documentation of augmentation of Clozapine. 4 - Justification other than those listed in allowable values 1-3, document here : Discharge Discharge Date: Jun 21, 2017 Discharge Diagnosis: (1) ALZHEIMER'S DISEASE WITH LATE ONSET Diagnosis: Principal ICD Code: G30.1 - ALZHEIMER'S DISEASE WITH LATE ONSET (2) DEMENTIA IN OTH DISEASES CLASSD ELSWHR W BEHAVIORAL DISTURB Diagnosis: Principal ICD Code: F02.81 - DEMENTIA IN OTH DISEASES CLASSD ELSWHR W BEHAVIORAL DISTURB Pt Condition on Discharge: Stable Discharge Disposition: [facility] Discharge Instructions Diet Instructions: As Tolerated, No Restrictions Activities you can perform: Regular-No Restrictions Scheduled Appointment: At [facility] Discharge Time > 30 minutes Mental Status Examination Appearance: Appropriate (in hospital gown) Consciousness: Alert Orientation: Person Motor Activity: Normal gait (slight shuffling) Speech: Unremarkable Language: Adequate Fund of Knowledge: Inadequate Attention and Concentration: Easily Distracted Memory: Impaired Mood: Other (labile) Affect: Irritable Thought Process & Associations: Loose associations Thought Content: Bizarre thinking Delusion Type: None Suicidal Ideation: No Suicidal Plan: No Suicidal Intention: No Homicidal Ideation: No Homicidal Plan: No Homicidal Intention: No Insight: Poor Judgment: Poor Discharge/Advance Care Plan Health Problems: (1) ALZHEIMER'S DISEASE WITH LATE ONSET (2) DEMENTIA IN OTH DISEASES CLASSD ELSWHR W BEHAVIORAL DISTURB Goals to promote your health * To prevent worsening of your condition and complications * To maintain your health at the optimal level Directions to meet your goals Take your medications as prescribed Follow your dietary instruction Follow activity as directed Keep your appointments as scheduled Take your immunizations and boosters as scheduled If your symptoms worsen call your PCP, if no PCP go to Urgent Care Center or Emergency Room For 13/11 questions related to your inpatient stay or results of tests pending at discharge, please contact Dr. Eduardo Mills at Smoking is Dangerous to Your Health. Avoid second hand smoking Eduardo Mills MD Jun 21, 2017 09:32
[2017-06-21] MEDS: hydrOXYzine HCL 50 MG TAB PO PRN (13:00)
[2017-06-21] MEDS ORDERED: HALOPERIDOL LACTATE 5 MG/ML AMP ONE (14:40)
[2017-06-21] MEDS ORDERED: HALOPERIDOL LACTATE 5 MG/ML AMP IM ONE (15:15)
== END 2017-06-21 15:20 | DRG 57 ==
LOC: NEPD 14:55 → NEDA 19:08 → H250 21:03
PROVIDERS: ADMIT Psychiatry & Neurology Psychiatry; ATTEND Psychiatry & Neurology Psychiatry
DX: G30.1 Alzheimer's disease with late onset (principal); F02.81 Dementia in other diseases classified elsewhere, unspecified severity, with behavioral disturbance; I48.2 Chronic atrial fibrillation; D64.9 Anemia, unspecified; E55.9 Vitamin D deficiency, unspecified; I10 Essential (primary) hypertension; S00.33XA Contusion of nose, initial encounter; S00.83XA Contusion of other part of head, initial encounter; S00.531A Contusion of lip, initial encounter; W19.XXXA Unspecified fall, initial encounter; Y92.239 Unspecified place in hospital as the place of occurrence of the external cause; R51 Headache; R79.1 Abnormal coagulation profile; Z79.01 Long term (current) use of anticoagulants; Z88.2 Allergy status to sulfonamides; Z88.0 Allergy status to penicillin; Z88.1 Allergy status to other antibiotic agents
CPT/HCPCS: 70450; 70486; 80048; 80053; 80061; 80162; 80307; 81001; 82306; 82607; 82728; 83036; 83540; 83550; 83735; 84100; 84443; 84484; 85025; 85027; 85610; 93005; 93306; 93880; 96372; J1200; J1630; J2060